=== PATIENT | male | born 1955 | race Caucasian/White ===

== ENCOUNTER 2016-07-10 13:55 | Inpatient (IN) | payer OTHER ==
[2016-07-10] MEDS ORDERED: IV FLUID CONTINUATION 150 ML IV ONE (14:00)
[2016-07-10] MEDS ORDERED: SODIUM CHLORIDE 0.9% 1,000 ML IV ONE (14:05)
[2016-07-10] MEDS ORDERED: MIDAZOLAM 2 MG/2 ML VIAL IV ONE (14:10)
[2016-07-10] MEDS ORDERED: FUROSEMIDE 10 MG/ML 4 ML VIAL IV ONE (14:17)
[2016-07-10] MEDS ORDERED: HYDROmorphone 2 MG/ML 1 ML SYRINGE IV ONE (14:21)
[2016-07-10] MEDS ORDERED: BIVALIRUDIN 250 MG in SODIUM CHLORIDE 0.9% 50 ML IV ONE (14:21)
[2016-07-10] MEDS ORDERED: BIVALIRUDIN BOLUS 250 MG/50 ML IV ONE (14:26)
[2016-07-10] MEDS ORDERED: ONDANSETRON 4 MG/2 ML VIAL IVP ONE (14:28)
[2016-07-10] MEDS ORDERED: PRASUGREL 10 MG TAB PO ONE (14:36)
[2016-07-10] MEDS ORDERED: NITROGLYCERIN 1000MCG/10ML SYRINGE INTRACORON ONE (14:39)
[2016-07-10] MEDS ORDERED: niCARdipine Syringe (1,000 mcg/10 mL) INTRACORON ONE (14:41)
[2016-07-10] MEDS ORDERED: NOREPINEPHRINE 4 MG in SODIUM CHLORIDE 0.9% 250 ML IV ONE (14:45)
[2016-07-10] MEDS ORDERED: RX INFO: IV CONTRAST WAS GIVEN 1 EACH MISC MISCELLANE PRN (15:00)
[2016-07-10] MEDS ORDERED: IOHEXOL 350 MG/ML 100 ML BOTTLE INJ ONE (15:00)
[2016-07-10] MEDS ORDERED: SODIUM CHLORIDE 0.9% 1,000 ML IV SCH (15:00)
[2016-07-10] MEDS ORDERED: ZOLPIDEM 5 MG TAB PO PRN (15:00)
[2016-07-10] MEDS ORDERED: ATROPINE SULFATE 0.1 MG/ML 10ML SYRINGE IV PRN (15:00)
--- NOTE | 2016-07-10 15:05 | P.CRDCN ---
History of Present Illness Consult date: 07/10/16 Chief complaint: Chest pain History of present illness: This is a pleasant 60-year-old gentleman with no significant past medical history was brought to the hospital by ambulance with a chest discomfort. He was in his usual state of health until earlier today when he started experiencing chest discomfort, across the chest, as a pressure kind of discomfort with radiation to the left arm. Discomfort was around 10 over 10 in intensity's. He was diagnosed with acute anterior ST elevation myocardial infarction. He underwent an emergent heart catheterization and was found to have critical disease involving the proximal left anterior descending artery with severe disease involving the mid right coronary artery. The patient underwent successful stenting of the proximal LAD with a good angiographic results and using a drug-eluting stent. Medications and Allergies Allergies Allergy/AdvReac Type Severity Reaction Status Date / Time No Known Allergies Allergy Verified 07/10/16 14:15 Physical Exam Vitals: Intake and Output 07/10/16 07/10/16 07/10/16 06:59 14:59 22:59 Other: Weight 93.894 kg Patient Weight 07/11/16 06:59 Weight 93.894 kg - Constitutional General appearance: no acute distress - Respiratory Respiratory: bilateral: CTA - Cardiovascular Rhythm: regular Heart sounds: normal: S1, S2 Results Current Medications Generic Name Dose Route Start Last Admin Trade Name Freq PRN Reason Stop Dose Admin Al Hydroxide/Mg Hydroxide 30 ml 07/10/16 15:00 Maalox PO Q4HR PRN Heartburn Aspirin 325 mg 07/11/16 09:00 Aspirin PO DAILY [facility] Atorvastatin Calcium 80 mg 07/10/16 21:00 Lipitor PO HS [facility] Atropine Sulfate 0.5 mg 07/10/16 15:00 Atropine IV ONCE PRN Symptomatic Bradycardia Sodium Chloride 1,000 mls @ 100 mls/hr 07/10/16 15:00 Saline 0.9% IV 07/10/16 21:01 .Q10H [facility] Lisinopril 10 mg 07/11/16 09:00 Zestril PO DAILY [facility] Metoprolol Tartrate 25 mg 07/10/16 21:00 Lopressor PO BID [facility] Miscellaneous Information 1 each 07/10/16 15:00 Rx Info: Iv Contrast Was Given MISCELLANE 07/12/16 15:00 DAILY PRN Per Protocol Nitroglycerin 0.4 mg 07/10/16 15:00 Nitrostat SUBLINGUAL Q5M PRN Chest Pain Prasugrel 10 mg 07/11/16 15:01 Effient PO DAILY [facility] Zolpidem Tartrate 5 mg 07/10/16 15:00 Ambien PO HS PRN Insomnia Intake and Output 07/10/16 07/10/16 07/10/16 06:59 14:59 22:59 Other: Weight 93.894 kg Patient Weight 07/11/16 06:59 Weight 93.894 kg Assessment and Plan Plan: Assessment #1 acute anterior STEMI and status post PCI of the LAD #2 severe disease involving the RCA Plan #1 dual antiplatelet therapy along with statin #2 2-D echocardiogram was Doppler #3 staged angioplasty of the right coronary artery
[2016-07-10 15:08] LABS: Basophils % (A) 0 %; CH 29.4; CHCM 35.3; Eosinophils % (A) 0 %; HDW 2.79; HGB 14.1 gm/dL (13.0-17.5); Luc # (Auto) 0.14; Luc % (Auto) 1; Lymphocytes # (A) 1.2 k/uL (1.0-4.8); Lymphocytes % (A) 5 %; MCH 28.8 pg (25.0-35.0); MCHC 34.4 g/dL (31.0-37.0); MCV 83.8 fL (80.0-100.0); Mean Platelet Volume 9.4; Monocytes # (A) 0.7 k/uL (0-1.0); Monocytes % (A) 3 %; Neutrophils % (A) 91 %; RBC 4.89 m/uL (4.30-5.90); RDW 12.8 % (11.5-15.5); WBC (Perox) 22.11
--- NOTE | 2016-07-10 15:12 | P.PCN ---
Date of Procedure: 07/10/16 Operative Findings: CARDIAC CATHETERIZATION AND PERCUTANEOUS CORONARY INTERVENTION PERFORMING PHYSICIAN: Pradeep Bustamante MD,RPVI PREPROCEDURE DIAGNOSES: Acute anterior ST elevation myocardial infarction POSTPROCEDURE DIAGNOSES: Critical disease involving the proximal LAD Severe disease involving the mid RCA PROCEDURE PERFORMED: 1. Selective right and left coronary angiogram 2. Left heart catheterization 3. Successful stenting of the proximal LAD using 3.25 x 33 mm Xience MARIE with a good angiographic results. APPROACH: Right femoral artery PROCEDURE DESCRIPTION: After obtaining an informed consent and explaining the procedure benefits, risks , and complications, the patient was brought to cardiac supervisor laboratory. Local anesthesia was performed using lidocaine subcutaneously. The right femoral artery was cannulated using puncture technique, the guidewire passed easily, and a 6-[place] Islander sheath dilator assembly was advanced over the wire then the wire and dilator were removed and sheath was flushed. I did Selective right and left coronary angiogram using a 6-[place] Island[place] JR4 and JL4 catheters. Following that we did left heart catheterization using 6-[place] Islander pigtail catheter. Following that I did intervene on the LAD please see a separate paragraph. The procedure was completed there was no complication. SELECTIVE CORONARY ANGIOGRAM: The right coronary artery: Is a large caliber vessel and its a dominant vessel. The proximal RCA appeared to be angiographically normal. The mid RCA has a long tubular lesion seems to be in the range of 70%. The RCA has a lesion seems to be in the range of 50-60% . The RCA distally bifurcates into PDA and PLV branches and both have mild diffuse disease. Left main: Is angiographically normal. The left circumflex: Is a large caliber vessel and its and on dominant vessel. The proximal left circumflex appeared to have mild disease only. The mid left circumflex appeared to have mild disease only and gives rises into the first and second obtuse marginal branches and both are angiographically normal then the left circumflex continues as a small-caliber vessel in the AV groove The left anterior descending artery: The proximal left anterior descending artery appeared to have a critical lesion in the range of 90-95% this is by the bifurcation of the first diagonal branch which appears to have mild disease. The mid LAD and distal LAD appears to be angiographically normal. PCI OF THE LAD: Anticoagulation was initiated using Angiomax. Subsequently I took JL4 guide and the left main was engaged. A whisper wire was used to wire the LAD. I did predilatation using 2.5 x 12 mm balloon and then I deployed 3.25 x 33 mm Xience MARIE where the stent was positioned under fluoroscopy guidance and it was deployed under 12 porfirio for 20 seconds. Subsequently I did postdilated using 3.5 mm NC balloon were the balloon was inflated under 20 porfirio for 30 seconds. The following angiogram showed good angiographic results without complication was YEYO-3 flow in the LAD. HEMODYNAMICS: The left ventricular end-diastolic pressure was 36 mmHg and no gradient was identified across aortic valve. POSTPROCEDURE MANAGEMENT: Dual antiplatelet therapy Risk factors modification Aggressive cholesterol control Echocardiogram was Doppler Follow-up with the patient
[2016-07-10 15:17] LABS: ALT 68 U/L (21-72); AST 294 U/L (17-59); Alkaline Phosphatase 85 U/L (38-126); Anion Gap 11 mmol/L; Blood Urea Nitrogen 13 mg/dL (9-20); Carbon Dioxide 22 mmol/L (22-30); Chloride 103 mmol/L (98-107); Cholesterol 224 mg/dL (<200); Glucose 190 mg/dL (74-99); HDL Cholesterol 55 mg/dL (40-60); Non-African American GFR(MDRD) >60 (>60 ml/min/1.73 sqM); Potassium 3.4 mmol/L (3.5-5.1); Sodium 136 mmol/L (137-145); Total Bilirubin 0.7 mg/dL (0.2-1.3); Total Protein 6.5 g/dL (6.3-8.2); Triglycerides 113 mg/dL (<150)
[2016-07-10 15:22] LABS: INR 4.3 (<1.1); Partial Thromboplastin Time 80.3 sec (22.0-30.0); Prothrombin Time 42.9 sec (9.0-12.0)
[2016-07-10 15:39] LABS: Glucose,Whole Blood 177 mg/dL (75-99)
[2016-07-10] MEDS ORDERED: Potassium Replacement Protocol 1 EACH MISC MISCELLANE PRN (16:25)
[2016-07-10] MEDS ORDERED: NALOXONE 0.4 MG/ML 1 ML VIAL IV PRN (16:30)
[2016-07-10] MEDS: POTASSIUM CHLORIDE 10 MEQ, LIDOCAINE 2% INJ 10 MG in SODIUM CHLORIDE 0.9% 100 ML IV SCH ×2 (16:36→17:52)
[2016-07-10] MEDS: MAGNESIUM SULFATE-D5W PMX 1 GM in DEXTROSE/WATER 1 100ML.BAG IVPB SCH ×2 (18:54→20:07)
[2016-07-10] MEDS: INSULIN LISPRO (humaLOG) 300 UNIT/3 ML VIAL SQ SCH ×2 (18:55→20:16)
[2016-07-10] MEDS: ATORVASTATIN 80 MG TAB PO SCH (20:08)
[2016-07-10 20:24] LABS: Glucose,Whole Blood 187 mg/dL (75-99)
[2016-07-10] MEDS ORDERED: METOPROLOL TARTRATE 25 MG TAB PO SCH (21:00)
[2016-07-10] MEDS: MAG HYDROX/AL HYDROX/SIMETH 30 ML CUP PO PRN (22:16)
[2016-07-10] MEDS: NITROGLYCERIN SL TABS 0.4 MG TAB SUBLINGUAL PRN (23:12)
[2016-07-10] MEDS: METOCLOPRAMIDE 5 MG/ML 2 ML VIAL IVP PRN (23:18)
[2016-07-11] MEDS ORDERED: FUROSEMIDE 10 MG/ML 4 ML VIAL IV STA ×3 (00:15→08:41)
[2016-07-11] MEDS: HYDROmorphone 1 MG/ML 1 ML SYRINGE IVP PRN (00:47)
--- NOTE | 2016-07-11 01:31 | XR ---
EXAM: XR Chest, 1 View. CLINICAL HISTORY: Shortness of breath, increased O2 demand TECHNIQUE: Frontal view of the chest. COMPARISON: No relevant prior studies available. FINDINGS: Lungs: Opacities in the right greater than left upper lungs are concerning for pneumonia. Pleural space: Unremarkable. No pneumothorax. Heart: Borderline sized cardiomediastinal silhouette. Mediastinum: See above. Bones/joints: No acute osseous abnormality. IMPRESSION: Opacities in the right greater than left upper lungs are concerning for pneumonia.
[2016-07-11 05:07] LABS: INR 1.1 (<1.1); Prothrombin Time 11.4 sec (9.0-12.0)
[2016-07-11 05:18] LABS: Basophils # (A) 0.1 k/uL (0-0.2); Basophils % (A) 0 %; CHCM 34.5; Eosinophils % (A) 0 %; HCT 45.7 % (39.0-53.0); HGB 15.7 gm/dL (13.0-17.5); Luc # (Auto) 0.15; Luc % (Auto) 1; Lymphocytes % (A) 4 %; MCHC 34.3 g/dL (31.0-37.0); MCV 84.4 fL (80.0-100.0); Mean Platelet Volume 9.6; Monocytes % (A) 4 %; Neutrophils # (A) 22.8 k/uL (1.3-7.7); Neutrophils % (A) 91 %; RBC 5.41 m/uL (4.30-5.90); RDW 12.9 % (11.5-15.5); WBC (Perox) 25.18
[2016-07-11 05:19] LABS: ALT 163 U/L (21-72); Alkaline Phosphatase 85 U/L (38-126); Anion Gap 9 mmol/L; Blood Urea Nitrogen 16 mg/dL (9-20); Calcium 8.7 mg/dL (8.4-10.2); Carbon Dioxide 28 mmol/L (22-30); Chloride 101 mmol/L (98-107); Glucose 175 mg/dL (74-99); Non-African American GFR(MDRD) >60 (>60 ml/min/1.73 sqM); Phosphorous 3.4 mg/dL (2.5-4.5); Potassium 4.4 mmol/L (3.5-5.1); Sodium 138 mmol/L (137-145); Total Bilirubin 0.9 mg/dL (0.2-1.3); Total Protein 6.8 g/dL (6.3-8.2)
[2016-07-11 05:25] LABS: AST 991 U/L (17-59)
[2016-07-11] MEDS: MAG HYDROX/AL HYDROX/SIMETH 30 ML CUP PO PRN (06:30)
--- NOTE | 2016-07-11 07:20 | XR ---
EXAMINATION TYPE: XR chest 1V DATE OF EXAM: 07/11/2016 6:40 AM CLINICAL HISTORY: Difficulty breathing progress study. TECHNIQUE: Single AP portable upright view of the chest is obtained. COMPARISON: Chest x-ray from earlier today. FINDINGS: Bilateral upper lung airspace opacities remain present. There is no pleural effusion or pn eumothorax seen bilaterally. Cardiac silhouette size is felt within normal limits and stable. There i s old fracture deformity right posterior lateral sixth rib noted. IMPRESSION: Persistent bilateral upper lung or lobe edema and/or infiltrates with slight improved aer ation right upper lobe noted.
[2016-07-11 07:36] LABS: Glucose,Whole Blood 159 mg/dL (75-99)
[2016-07-11] MEDS: INSULIN LISPRO (humaLOG) 300 UNIT/3 ML VIAL SQ SCH ×4 (08:07→22:14)
[2016-07-11] MEDS: METOPROLOL TARTRATE 25 MG TAB PO SCH ×2 (08:08→22:11)
[2016-07-11] MEDS: FUROSEMIDE 10 MG/ML 4 ML VIAL IV SCH ×2 (08:08→22:11)
[2016-07-11] MEDS: LISINOPRIL 10 MG TAB PO SCH (08:08)
[2016-07-11] MEDS: PANTOPRAZOLE 40 MG TABLET PO SCH (08:08)
[2016-07-11] MEDS: ASPIRIN 325 MG TAB PO SCH (08:08)
[2016-07-11 08:53] LABS: Hemoglobin A1C 5.4 % (4.2-6.1)
--- NOTE | 2016-07-11 10:25 | ECHOF ---
Referral Reason: MEASUREMENTS -------- HEIGHT: 180.3 cm WEIGHT: 93.0 kg BP: 122/74 IVSd: 1.1 cm (0.6 - 1.1) LVIDd: 4.8 cm (3.9 - 5.3) LVPWd: 1.4 cm (0.6 - 1.1) IVSs: 1.5 cm LVIDs: 3.9 cm LVPWs: 1.5 cm Ao Diam: 3.3 cm (2.0 - 3.7) AV Cusp: 1.8 cm (1.5 - 2.6) LA Diam: 2.8 cm (2.7 - 3.8) MV EXCURSION: 20.130 mm (> 18.000) MV EF SLOPE: 130 mm/s (70 - 150) EPSS: 1.9 cm MV E Dain: 1.08 m/s MV DecT: 199 ms MV A Dain: 0.66 m/s MV E/A Ratio: 1.63 RAP: 5.00 mmHg RVSP: 10.57 mmHg FINDINGS -------- Sinus rhythm. This was a technically good study. The left ventricle is mildly dilated. Left ventricular wall thickness is normal. Overall left ventricular systolic function is severely impaired with, an EF between 25 - 30 %. Mid Basal inferior lateral segments jean carlos Only. The right ventricle is normal in size and function. The left atrium is normal in size. The right atrium is normal in size. Aortic valve is trileaflet and is mildly thickened. There is trace mitral regurgitation. Trace tricuspid regurgitation present. The right ventricular systolic pressure, as measured by Doppler, is 10.57mmHg. Pulmonic valve appears structurally normal. The pericardium is normal. CONCLUSIONS -------- 1. Sinus rhythm. 2. There is trace mitral regurgitation. 3. Trace tricuspid regurgitation present. 4. The right ventricular systolic pressure, as measured by Doppler, is 10.57mmHg. 5. Pulmonic valve appears structurally normal. 6. The pericardium is normal. 7. This was a technically good study. 8. Left ventricular wall thickness is normal. 9. Overall left ventricular systolic function is severely impaired with, an EF between 25 - 30 %. 10. Mid Basal inferior lateral segments jean carlos Only. 11. The right ventricle is normal in size and function. 12. The left atrium is normal in size. 13. The right atrium is normal in size. 14. Aortic valve is trileaflet and is mildly thickened. DEPARTMENT OPERATIONS MANAGER: Elizabeth Webster RDCS
[2016-07-11 11:59] LABS: Glucose,Whole Blood 143 mg/dL (75-99)
[2016-07-11] MEDS: NITROGLYCERIN SL TABS 0.4 MG TAB SUBLINGUAL PRN (12:19)
[2016-07-11] MEDS: SUCRALFATE 1 GM TAB PO SCH ×2 (13:19→13:20)
[2016-07-11] MEDS: PRASUGREL 10 MG TAB PO SCH (15:04)
--- NOTE | 2016-07-11 15:20 | P.CNPUL ---
History of Present Illness Consult date: 07/11/16 Requesting physician: Pradeep Bustamante Reason for consult: other (Acute congestive heart failure) Chief complaint: Chest pain and shortness of breath History of present illness: This is a 60-year-old white male with no significant past medical history, patient was brought into the ER with acute onset of chest discomfort. Described the pain as across the chest as pressure and discomfort. Patient also had radiation of the pain to the left arm, and upon presentation he was found to have acute anterior ST elevation myocardial infarction. Patient underwent emergent cardiac catheterization and he was found to have critical disease involving the proximal LAD severe disease involving the RCA. Patient underwent successful stenting of the proximal LAD with good angiographic results using a drug eluting stent. Post cardiac cath, patient was sent to the ICU, and a chest x-ray clearly showed evidence of pulmonary edema. However the patient is now on Lasix at 40 mg IV push every 12 hours, I went ahead and recommended an extra dose of Lasix this morning. Patient describes dry hacking cough, difficulty laying flat, shortness of breath with any activity. No fever no chills no hemoptysis presently he is pain-free. No headaches no blurred vision no dizziness no nausea no vomiting no abdominal pain no melena no hematemesis no dysuria and no frequency no urgency. Review of Systems 14 point review of systems were obtained, please refer to pertinent positives and negatives as per HPI. Past Medical History Past Medical History: Chest Pain / Angina, GERD/Reflux History of Any Multi-Drug Resistant Organisms: None Reported Past Surgical History: Heart Catheterization With Stent Past Anesthesia/Blood Transfusion Reactions: No Reported Reaction Date of Last Stent Placement:: 07/10/2016 Past Psychological History: Anxiety Smoking Status: Never smoker Past Alcohol Use History: Occasional Past Drug Use History: None Reported - Past Family History Mother Family Medical History: Dementia Medications and Allergies Home Medications Medication Instructions Recorded Confirmed Type Rhodiola Rosea Supplement 1 cap PO QAM 07/10/16 07/10/16 History Allergies Allergy/AdvReac Type Severity Reaction Status Date / Time No Known Allergies Allergy Verified 07/10/16 17:20 Physical Exam Vitals: Vital Signs Temp Pulse Resp BP Pulse Ox 07/11/16 14:30 68 20 93/56 96 07/11/16 14:00 67 25 H 83/54 98 07/11/16 13:00 61 22 100/60 99 07/11/16 12:00 98.1 F 65 17 110/66 97 07/11/16 11:30 68 19 103/68 97 07/11/16 11:00 67 13 93/57 95 07/11/16 10:00 68 24 125/83 94 L 07/11/16 09:00 68 16 131/71 94 L 07/11/16 08:00 98.3 F 71 18 122/74 96 07/11/16 07:30 98.3 F 71 25 H 131/84 94 L 07/11/16 06:00 66 2 L 104/71 94 L 07/11/16 05:30 78 12 118/73 94 L 07/11/16 05:00 75 22 120/74 97 07/11/16 04:30 75 29 H 118/83 92 L 07/11/16 04:00 99.2 F 76 27 H 99/64 93 L 07/11/16 03:30 72 6 L 114/82 93 L 07/11/16 03:00 73 29 H 130/90 93 L 07/11/16 02:30 75 17 131/84 94 L 07/11/16 02:00 77 27 H 114/83 91 L 07/11/16 01:30 75 7 L 118/70 89 L 07/11/16 01:00 78 20 109/69 90 L 07/11/16 00:30 79 12 128/81 94 L 07/11/16 00:00 99.1 F 80 29 H 118/81 88 L 07/10/16 23:30 90 22 106/62 87 L 07/10/16 23:19 77 25 H 106/62 92 L 07/10/16 23:00 98.9 F 84 17 135/84 90 L 07/10/16 22:30 100.1 F H 83 15 136/91 94 L 07/10/16 22:00 88 48 H 129/68 90 L 07/10/16 21:30 82 14 123/67 92 L 07/10/16 21:00 76 4 L 158/95 93 L 07/10/16 20:30 78 24 145/78 94 L 07/10/16 20:00 77 32 H 133/83 95 07/10/16 19:30 73 26 H 126/83 95 07/10/16 19:00 76 18 140/75 95 07/10/16 18:40 77 10 L 120/77 92 L 07/10/16 18:30 82 8 L 120/77 95 07/10/16 18:20 77 9 L 120/77 95 07/10/16 18:10 78 6 L 113/64 97 07/10/16 18:00 75 7 L 113/64 96 07/10/16 17:50 78 12 113/64 95 07/10/16 17:40 75 21 122/80 96 07/10/16 17:30 72 3 L 122/80 95 07/10/16 17:20 77 5 L 122/80 95 07/10/16 17:10 76 7 L 116/82 96 07/10/16 17:00 73 2 L 116/82 94 L 07/10/16 16:50 76 2 L 116/82 92 L 07/10/16 16:40 75 28 H 121/76 88 L 07/10/16 16:30 69 6 L 121/76 92 L 07/10/16 16:20 70 11 L 121/76 90 L 07/10/16 16:10 75 12 128/79 98 07/10/16 16:00 71 15 128/79 97 07/10/16 15:51 93 L 07/10/16 15:50 69 12 128/79 95 07/10/16 15:40 98.8 F 73 17 128/79 84 L 07/10/16 15:30 87 24 Intake and Output 07/11/16 07/11/16 07/11/16 06:59 14:59 22:59 Intake Total 800 Output Total 775 975 0 Balance 25 -975 0 Intake: Intake, IV Titration 800 Amount Sodium Chloride 0.9% 1, 800 000 ml @ 100 mls/hr IV . Q10H [facility] Rx#:[id number] Output: Urine 775 975 0 Other: Voiding Method Urinal Urinal Weight 93.3 kg Physical Exam: Revealed a 60-year-old white male in mild respiratory distress HEENT:[Neck is supple.] [No neck masses.] [No thyromegaly.] [No JVD.] Chest: [Crackles and rhonchi noted bilaterally] Cardiac Exam: [Normal S1 and S2, no S3 gallop, no murmur.] Abdomen: [Soft, nontender, no megaly, no rebound, no guarding, normal bowel sounds.] Extremities: [No clubbing, no edema, no cyanosis.] Neurological Exam: [No focal neurologic deficit.] Results - Laboratory Findings CBC and BMP: 07/11/16 04:43 07/11/16 04:43 PT/INR, D-dimer PT 11.4 sec (9.0-12.0) 07/11/16 04:43 INR 1.1 (<1.1) 07/11/16 04:43 D-Dimer 0.81 mg/L FEU (<0.60) H 07/11/16 00:38 Abnormal lab findings: Abnormal Labs 07/10/16 07/10/16 07/10/16 14:55 14:55 14:55 WBC 22.0 H Neutrophils # 20.0 H PT 42.9 H APTT 80.3 H D-Dimer Sodium 136 L Potassium 3.4 L Glucose 190 H POC Glucose (mg/dL) Calcium 8.0 L Magnesium AST 294 H ALT Troponin I Albumin 3.4 L Cholesterol 224 H LDL Cholesterol, Calc 146 H 07/10/16 07/10/16 07/10/16 14:55 14:55 15:38 WBC Neutrophils # PT APTT D-Dimer Sodium Potassium Glucose POC Glucose (mg/dL) 177 H Calcium Magnesium 1.5 L AST ALT Troponin I 21.600 H* Albumin Cholesterol LDL Cholesterol, Calc 07/10/16 07/11/16 07/11/16 20:15 00:38 04:43 WBC 25.0 H* Neutrophils # 22.8 H PT APTT D-Dimer 0.81 H Sodium Potassium Glucose POC Glucose (mg/dL) 187 H Calcium Magnesium AST ALT Troponin I Albumin Cholesterol LDL Cholesterol, Calc 07/11/16 07/11/16 07/11/16 04:43 07:33 11:56 WBC Neutrophils # PT APTT D-Dimer Sodium Potassium Glucose 175 H POC Glucose (mg/dL) 159 H 143 H Calcium Magnesium AST 991 H ALT 163 H Troponin I Albumin Cholesterol LDL Cholesterol, Calc - Diagnostic Findings Chest x-ray: image reviewed (Evidence of pulmonary edema) Assessment and Plan Plan: Impression: [address] elevation myocardial infarction, status post PCI of the LAD 2 severe disease of the RCA 3 acute pulmonary edema, acute congestive heart failure. Secondary to ischemic cardiomyopathy. 4 remote smoking history Recommendation: Agree with the present treatment plan including dual antiplatelet therapy along with statin, diuretics, and beta blockers. We'll continue to follow in the intensive care unit.. Time with Patient: Greater than 30
[2016-07-11] MEDS ORDERED: MAG HYDROX/AL HYDROX/SIMETH 30 ML CUP PO PRN (15:52)
--- NOTE | 2016-07-11 16:58 | P.HPIM ---
History of Present Illness H&P Date: 07/11/16 Chief Complaint: Chest pain this is a 60-year-old male who plans to establish himself with Dr. Welsh's primary care physician. He has a past medical history of gastroesophageal reflux disease. Patient states that he went for a hike on Monday morning which was shorter than his normal 3-5 miles and he decided to go for a longer hike later in the day. While he was out he developed chest pressure with left arm involvement and feeling woozy. He sat down he took an aspirin and anti-gas medication and his symptoms went away. On Monday the patient had the same symptoms again but much worse. He does have history of stress test about 5 years ago that was normal. He presented by EMS to the hospital and went directly to the [facility] and found to have critical disease involving the proximal LAD and severe disease involving the mid RCA and is status post stenting of the proximal LAD. Patient has been diagnosed with acute anterior ST elevated myocardial infarction. He remains in intensive care unit. He is complaining of pain in the right sternal border with deep inspiration and tender to touch. He also has tenderness to the epigastric area. Echocardiogram reveals EF 25-30% with trace mitral regurgitation, trace tricuspid regurgitation. AST 991 and ALT 163. ProBNP 1220. Triglycerides 113 , cholesterol 224, LDL 146 and HDL 55. WBC count at 25. Review of Systems All systems: negative Constitutional: Reports sweats, Reports weakness, Denies chills, Denies fever Eyes: denies blurred vision, denies pain Ears, nose, mouth and throat: Denies headache, Denies sore throat Cardiovascular: Reports chest pain, Reports lightheadedness, Denies shortness of breath Respiratory: Denies cough Gastrointestinal: Denies abdominal pain, Denies diarrhea, Denies nausea, Denies vomiting Musculoskeletal: Denies myalgias Integumentary: Denies pruritus, Denies rash Neurological: Denies numbness, Denies weakness Psychiatric: Denies anxiety, Denies depression Endocrine: Denies fatigue, Denies weight change Past Medical History Past Medical History: GERD/Reflux, Myocardial Infarction (MS) History of Any Multi-Drug Resistant Organisms: None Reported Past Surgical History: Heart Catheterization With Stent Additional Past Surgical History / Comment(s): dental procedures Past Anesthesia/Blood Transfusion Reactions: No Reported Reaction Date of Last Stent Placement:: 07/10/2016 Past Psychological History: Anxiety Smoking Status: Never smoker Past Alcohol Use History: Occasional Additional Past Alcohol Use History / Comment(s): patient denies any tobacco use history. 40 years ago he did use marijuana, cocaine and other illicit drugs but has not done so in many years. He is . He does not have home O2, CPAP, nebulizer. Past Drug Use History: None Reported - Past Family History Mother Family Medical History: Dementia Additional Family Medical History / Comment(s): Mother is age 82 with history of hypertension, CVA, heart failure, squamous cell cancer. Father Additional Family Medical History / Comment(s): Father is age 83 with no major medical problems. Brother(s) Additional Family Medical History / Comment(s): He has 1 brother that has had CABG in his 40s, hypertension. Sister(s) Additional Family Medical History / Comment(s): He has 1 sister with no major medical problems. Patient does not have any children. Medications and Allergies Home Medications Medication Instructions Recorded Confirmed Type Rhodiola Rosea Supplement 1 cap PO QAM 07/10/16 07/10/16 History Allergies Allergy/AdvReac Type Severity Reaction Status Date / Time No Known Allergies Allergy Verified 07/10/16 17:20 Physical Exam Vitals: Vital Signs Temp Pulse Resp BP Pulse Ox 07/11/16 12:00 98.1 F 65 17 110/66 97 07/11/16 11:30 68 19 103/68 97 07/11/16 11:00 67 13 93/57 95 07/11/16 10:00 68 24 125/83 94 L 07/11/16 09:00 68 16 131/71 94 L 07/11/16 08:00 98.3 F 71 18 122/74 96 07/11/16 07:30 98.3 F 71 25 H 131/84 94 L 07/11/16 06:00 66 2 L 104/71 94 L 07/11/16 05:30 78 12 118/73 94 L 07/11/16 05:00 75 22 120/74 97 07/11/16 04:30 75 29 H 118/83 92 L 07/11/16 04:00 99.2 F 76 27 H 99/64 93 L 07/11/16 03:30 72 6 L 114/82 93 L 07/11/16 03:00 73 29 H 130/90 93 L 07/11/16 02:30 75 17 131/84 94 L 07/11/16 02:00 77 27 H 114/83 91 L 07/11/16 01:30 75 7 L 118/70 89 L 07/11/16 01:00 78 20 109/69 90 L 07/11/16 00:30 79 12 128/81 94 L 07/11/16 00:00 99.1 F 80 29 H 118/81 88 L 07/10/16 23:30 90 22 106/62 87 L 07/10/16 23:19 77 25 H 106/62 92 L 07/10/16 23:00 98.9 F 84 17 135/84 90 L 07/10/16 22:30 100.1 F H 83 15 136/91 94 L 07/10/16 22:00 88 48 H 129/68 90 L 07/10/16 21:30 82 14 123/67 92 L 07/10/16 21:00 76 4 L 158/95 93 L 07/10/16 20:30 78 24 145/78 94 L 07/10/16 20:00 77 32 H 133/83 95 07/10/16 19:30 73 26 H 126/83 95 07/10/16 19:00 76 18 140/75 95 17 18:40 77 10 L 120/77 92 L 07/10/16 18:30 82 8 L 120/77 95 17 18:20 77 9 L 120/77 95 17 18:10 78 6 L 113/64 97 07/10/16 18:00 75 7 L 113/64 96 17 17:50 78 12 113/64 95 17 17:40 75 21 122/80 96 17 17:30 72 3 L 122/80 95 07/10/16 17:20 77 5 L 122/80 95 17 17:10 76 7 L 116/82 96 17 17:00 73 2 L 116/82 94 L 17 16:50 76 2 L 116/82 92 L 17 16:40 75 28 H 121/76 88 L 07/10/16 16:30 69 6 L 121/76 92 L 07/10/16 16:20 70 11 L 121/76 90 L 07/10/16 16:10 75 12 128/79 98 07/10/16 16:00 71 15 128/79 97 07/10/16 15:51 93 L 07/10/16 15:50 69 12 128/79 95 07/10/16 15:40 98.8 F 73 17 128/79 84 L 07/10/16 15:30 87 24 Intake and Output 07/10/16 07/11/16 07/11/16 22:59 06:59 14:59 Intake Total 700 800 Output Total 2175 775 825 Balance -1475 25 -825 Intake: Intake, IV Titration 700 800 Amount Magnesium Sulfate-D5w Pmx 200 1 gm In Dextrose/Water 1 100ml.bag @ 100 mls/hr IVPB Q1H [facility] Rx#: [id number] Potassium Chloride 10 meq 200 Lidocaine 2% Inj 10 mg In Sodium Chloride 0.9% 100 ml @ 100 mls/hr IV Q1HR [facility] Rx#:[id number] Sodium Chloride 0.9% 1, 300 800 000 ml @ 100 mls/hr IV . Q10H [facility] Rx#:[id number] Output: Urine 2175 775 825 Other: Voiding Method Urinal Urinal Urinal Weight 93.894 kg 93.3 kg Gen: This is a 60-year-old male. He is sitting in the ICU bed and appears to be in no acute distress. Patient does appear to be anxious. HEENT: Head is atraumatic, normocephalic. Pupils equal, round. Sclerae is anicteric. NECK: Supple. No JVD. No lymphadenopathy. No thyromegaly. LUNGS: bilateral rhonchi. No intercostal retractions. HEART: Regular rate and rhythm. No murmur. ABDOMEN: Soft. Bowel sounds are present. No masses. No tenderness. EXTREMITIES: No pedal edema. No calf tenderness. NEUROLOGICAL: Patient is awake, alert and oriented x3. Cranial nerves 2 through 12 are grossly intact. Results CBC & Chem 7: 07/12/16 04:02 07/12/16 04:02 Labs: Abnormal Lab Results - Last 24 Hours (Table) 07/10/16 07/10/16 07/10/16 Range/Units 14:55 14:55 14:55 WBC 22.0 H (3.8-10.6) k/uL Neutrophils # 20.0 H (1.3-7.7) k/uL PT 42.9 H (9.0-12.0) sec APTT 80.3 H (22.0-30.0) sec D-Dimer (<0.60) mg/L FEU Sodium 136 L (137-145) mmol/L Potassium 3.4 L (3.5-5.1) mmol/L Glucose 190 H (74-99) mg/dL POC Glucose (mg/dL) (75-99) mg/dL Calcium 8.0 L (8.4-10.2) mg/dL Magnesium (1.6-2.3) mg/dL AST 294 H (17-59) U/L ALT (21-72) U/L Troponin I (0.000-0.034) ng/mL Albumin 3.4 L (3.5-5.0) g/dL Cholesterol 224 H (<200) mg/dL LDL Cholesterol, Calc 146 H (0-99) mg/dL 07/10/16 07/10/16 07/10/16 Range/Units 14:55 14:55 15:38 WBC (3.8-10.6) k/uL Neutrophils # (1.3-7.7) k/uL PT (9.0-12.0) sec APTT (22.0-30.0) sec D-Dimer (<0.60) mg/L FEU Sodium (137-145) mmol/L Potassium (3.5-5.1) mmol/L Glucose (74-99) mg/dL POC Glucose (mg/dL) 177 H (75-99) mg/dL Calcium (8.4-10.2) mg/dL Magnesium 1.5 L (1.6-2.3) mg/dL AST (17-59) U/L ALT (21-72) U/L Troponin I 21.600 H* (0.000-0.034) ng/mL Albumin (3.5-5.0) g/dL Cholesterol (<200) mg/dL LDL Cholesterol, Calc (0-99) mg/dL 07/10/16 07/11/16 07/11/16 Range/Units 20:15 00:38 04:43 WBC 25.0 H* (3.8-10.6) k/uL Neutrophils # 22.8 H (1.3-7.7) k/uL PT (9.0-12.0) sec APTT (22.0-30.0) sec D-Dimer 0.81 H (<0.60) mg/L FEU Sodium (137-145) mmol/L Potassium (3.5-5.1) mmol/L Glucose (74-99) mg/dL POC Glucose (mg/dL) 187 H (75-99) mg/dL Calcium (8.4-10.2) mg/dL Magnesium (1.6-2.3) mg/dL AST (17-59) U/L ALT (21-72) U/L Troponin I (0.000-0.034) ng/mL Albumin (3.5-5.0) g/dL Cholesterol (<200) mg/dL LDL Cholesterol, Calc (0-99) mg/dL 07/11/16 07/11/16 07/11/16 Range/Units 04:43 07:33 11:56 WBC (3.8-10.6) k/uL Neutrophils # (1.3-7.7) k/uL PT (9.0-12.0) sec APTT (22.0-30.0) sec D-Dimer (<0.60) mg/L FEU Sodium (137-145) mmol/L Potassium (3.5-5.1) mmol/L Glucose 175 H (74-99) mg/dL POC Glucose (mg/dL) 159 H 143 H (75-99) mg/dL Calcium (8.4-10.2) mg/dL Magnesium (1.6-2.3) mg/dL AST 991 H (17-59) U/L ALT 163 H (21-72) U/L Troponin I (0.000-0.034) ng/mL Albumin (3.5-5.0) g/dL Cholesterol (<200) mg/dL LDL Cholesterol, Calc (0-99) mg/dL Thrombosis Risk Factor Assmnt - DVT/VTE Prophylaxis DVT/VTE Prophylaxis: Pharmacologic Prophylaxis ordered - Choose All That Apply Each Factor Represents 1 point: Acute MS, Age 41-60 years Thrombosis Risk Factor Assessment Total Risk Factor Score: 2 Thrombosis Risk Factor Assessment Level: Low Risk Assessment and Plan Plan: 1.Acute anterior ST elevation myocardial infarction status post left heart catheterization and successful stenting of the proximal LAD using 3.25 x 33 mm Xience MARIE with a good angiographic results. Continue aspirin, lipitor, lopressor, lisinopril, Effient nitroglycerine prn. 2. GERD and gastritis. Protonix, carafate and maalox. 3. Elevated blood sugar without history of diabetes. Humalog scale as needed. 4. Hyperlipidemia. Lipitor. 5. Acute pulomonary edema and acute systolic heart failure with ischemic cardiomyopathy. Lasix IV. 6. Elevated liver function tests due to hypoperfusion. Monitor CMP. Patient will be admitted to the hospital for a minimum of 2 night stay. Discharge plan: return home Impression and plan of care have been directed as dictated by the signing physician. Latasha Lozada nurse practitioner acting as scribe for signing physician. Time with Patient: Greater than 30
[2016-07-11 17:29] LABS: Glucose,Whole Blood 134 mg/dL (75-99)
[2016-07-11] MEDS ORDERED: DEXTROSE 5% IN WATER 100 ML with AMIODARONE 150 MG IV ONE (19:45)
[2016-07-11] MEDS: AMIODARONE 450 MG in DEXTROSE 5% IN WATER 250 ML IV SCH ×2 (20:50)
[2016-07-11] MEDS: ATORVASTATIN 80 MG TAB PO SCH (22:11)
[2016-07-11 22:15] LABS: Glucose,Whole Blood 146 mg/dL (75-99)
[2016-07-12 05:10] LABS: Basophils % (A) 0 %; CH 28.9; CHCM 34.6; Eosinophils % (A) 0 %; HCT 40.6 % (39.0-53.0); HDW 2.63; HGB 13.8 gm/dL (13.0-17.5); Luc # (Auto) 0.16; Luc % (Auto) 1; Lymphocytes # (A) 1.3 k/uL (1.0-4.8); Lymphocytes % (A) 6 %; MCH 28.4 pg (25.0-35.0); MCV 83.8 fL (80.0-100.0); Mean Platelet Volume 9.1; Monocytes # (A) 0.9 k/uL (0-1.0); Monocytes % (A) 4 %; Neutrophils # (A) 19.8 k/uL (1.3-7.7); Neutrophils % (A) 89 %; RBC 4.85 m/uL (4.30-5.90); RDW 12.9 % (11.5-15.5); WBC 22.2 k/uL (3.8-10.6)
[2016-07-12 05:18] LABS: ALT 113 U/L (21-72); AST 358 U/L (17-59); Alkaline Phosphatase 68 U/L (38-126); Anion Gap 7 mmol/L; Blood Urea Nitrogen 24 mg/dL (9-20); Calcium 8.3 mg/dL (8.4-10.2); Carbon Dioxide 30 mmol/L (22-30); Chloride 96 mmol/L (98-107); Glucose 132 mg/dL (74-99); Magnesium 2.1 mg/dL (1.6-2.3); Non-African American GFR(MDRD) >60 (>60 ml/min/1.73 sqM); Phosphorous 3.1 mg/dL (2.5-4.5); Potassium 3.9 mmol/L (3.5-5.1); Sodium 133 mmol/L (137-145); Total Bilirubin 1.4 mg/dL (0.2-1.3); Total Protein 6.2 g/dL (6.3-8.2)
[2016-07-12] MEDS: AMIODARONE 450 MG in DEXTROSE 5% IN WATER 250 ML IV SCH ×4 (06:32→12:16)
[2016-07-12] MEDS ORDERED: POTASSIUM CHLORIDE ER 20 MEQ TAB.ER PO SCH (07:00)
--- NOTE | 2016-07-12 07:13 | XR ---
EXAMINATION TYPE: XR chest 1V portable DATE OF EXAM: 07/12/2016 6:52 AM Comparison: 07/11/2016 Clinical History: 60-year-old male CHF Findings: Heart remains borderline enlarged. Aorta within normal limits. Diffuse interstitial opacities with mo re confluent perihilar airspace opacities. Slight interval improved aeration in the upper lungs. No s ignificant pleural effusion seen on the frontal view. However, some pleural fluid is seen thickening the left major fissure. Old healed right-sided rib fracture deformity. Impression: Stable to minimally improved CHF with pulmonary edema.
--- NOTE | 2016-07-12 07:25 | PN ---
A 60-year-old gentleman that is admitted to hospital with acute myocardial infarction, underwent a cardiac catheterization and angioplasty of proximal LAD. He has a lesion in the right coronary artery, which will be addressed on this admission. This morning he is doing well and is free of symptoms. An echocardiogram showed severe LV systolic dysfunction with an ejection fraction of 25% to 30%. On exam, comfortable at rest. Vital signs are stable. There is no jugular venous distention. Chest exam reveals good air entry bilaterally. Heart exam reveals first and second heart sounds. No gallop. Abdomen is soft. Exam of the extremities did not reveal any edema. Peripheral pulses are felt. Groin is free of bleeding, bruit, hematoma. Foot pulses are intact. EKG shows sinus rhythm with poor R wave progression suggestive of prior anteroseptal myocardial infarction. The initial EKG revealed acute ST segment elevation SD in the precordial deep. Current medications include aspirin, Lasix, Zestril, Lopressor and Effient. ASSESSMENT: 1. Acute anterior wall myocardial infarction, status post catheterization and angioplasty. 2. Ischemic cardiomyopathy. PLAN: The patient is doing well on the appropriate medical therapy. We will transfer him out to selective care.
[2016-07-12 08:05] LABS: Glucose,Whole Blood 180 mg/dL (75-99)
[2016-07-12] MEDS: PANTOPRAZOLE 40 MG TABLET PO SCH (08:33)
[2016-07-12] MEDS: FUROSEMIDE 10 MG/ML 4 ML VIAL IV SCH (08:34)
[2016-07-12] MEDS: INSULIN LISPRO (humaLOG) 300 UNIT/3 ML VIAL SQ SCH ×4 (08:34→20:19)
[2016-07-12] MEDS: PRASUGREL 10 MG TAB PO SCH (08:34)
[2016-07-12] MEDS: ASPIRIN 325 MG TAB PO SCH (08:34)
[2016-07-12] MEDS: AMOXIC-POT CLAV 875-125MG 1 EACH TAB PO SCH ×2 (09:29→20:18)
[2016-07-12] MEDS: METOPROLOL TARTRATE 25 MG TAB PO SCH ×3 (10:22→22:14)
--- NOTE | 2016-07-12 11:30 | P.PN ---
Subjective Principal diagnosis: Acute ST elevation myocardial infarction This is a 60-year-old white male with no significant past medical history, patient was brought into the ER with acute onset of chest discomfort. Described the pain as across the chest as pressure and discomfort. Patient also had radiation of the pain to the left arm, and upon presentation he was found to have acute anterior ST elevation myocardial infarction. Patient underwent emergent cardiac catheterization and he was found to have critical disease involving the proximal LAD severe disease involving the RCA. Patient underwent successful stenting of the proximal LAD with good angiographic results using a drug eluting stent. Post cardiac cath, patient was sent to the ICU, and a chest x-ray clearly showed evidence of pulmonary edema. However the patient is now on Lasix at 40 mg IV push every 12 hours, I went ahead and recommended an extra dose of Lasix this morning. Patient describes dry hacking cough, difficulty laying flat, shortness of breath with any activity. No fever no chills no hemoptysis presently he is pain-free. No headaches no blurred vision no dizziness no nausea no vomiting no abdominal pain no melena no hematemesis no dysuria and no frequency no urgency. Patient was reevaluated today on 07/12/2016, seems to be doing better today compared to yesterday. Less shortness of breath, able to lay flat today, chest x-ray continues to show some congestive heart failure changes, and considering the patient had possible aspiration yesterday, I added Augmentin empirically. And he will be given higher dose of Lasix, 40 mg IV push every 8 hours. Instead of every 12. WBC count today is 22.2 hemoglobin is 13.8 basically with embolic profile is normal renal profile is normal. Objective - Vital Signs Vital signs: Vital Signs Temp 98.6 F 07/12/16 08:00 Pulse 71 07/12/16 11:00 Resp 20 07/12/16 11:00 BP 96/69 07/12/16 11:00 Pulse Ox 92 L 07/12/16 11:00 Intake & Output 07/11/16 07/12/16 07/12/16 18:59 06:59 18:59 Intake Total 359.000 270 Output Total 7022 305 8485 Balance -1150 -121.000 -1255 Weight 91.5 kg Intake: IV 20 0.9 at KVO 20 Intake, IV Titration 359.000 Amount Amiodarone 450 mg In 259.000 Dextrose 5% in Water 250 ml @ 1 MG/MIN 34.53 mls/ hr IV .Q7H31M [facility] Rx#: [id number] Dextrose 5% in Water 100 100 ml @ 618 mls/hr IV .Q10M ONE with Amiodarone 150 mg Rx#:[id number] Oral 250 Output: Urine [id number] Other: Voiding Method Urinal Urinal # Voids 2 - Exam Physical Exam: Revealed a 60-year-old white male in mild respiratory distress HEENT:[Neck is supple.] [No neck masses.] [No thyromegaly.] [No JVD.] Chest: [Crackles and rhonchi noted bilaterally] Cardiac Exam: [Normal S1 and S2, no S3 gallop, no murmur.] Abdomen: [Soft, nontender, no megaly, no rebound, no guarding, normal bowel sounds.] Extremities: [No clubbing, no edema, no cyanosis.] Neurological Exam: [No focal neurologic deficit.] - Labs CBC & Chem 7: 07/12/16 04:02 07/12/16 04:02 Labs: Abnormal Lab Results - Last 24 Hours (Table) 07/11/16 07/11/16 07/11/16 Range/Units 11:56 17: 22:13 WBC (3.8-10.6) k/uL Neutrophils # (1.3-7.7) k/uL Sodium (137-145) mmol/L Chloride (98-107) mmol/L BUN (9-20) mg/dL Glucose (74-99) mg/dL POC Glucose (mg/dL) 143 H 134 H 146 H (75-99) mg/dL Calcium (8.4-10.2) mg/dL Total Bilirubin (0.2-1.3) mg/dL AST (17-59) U/L ALT (21-72) U/L Total Protein (6.3-8.2) g/dL Albumin (3.5-5.0) g/dL 07/12/16 07/12/16 07/12/16 Range/Units 04:02 04:02 08:03 WBC 22.2 H (3.8-10.6) k/uL Neutrophils # 19.8 H (1.3-7.7) k/uL Sodium 133 L (137-145) mmol/L Chloride 96 L (98-107) mmol/L BUN 24 H (9-20) mg/dL Glucose 132 H (74-99) mg/dL POC Glucose (mg/dL) 180 H (75-99) mg/dL Calcium 8.3 L (8.4-10.2) mg/dL Total Bilirubin 1.4 H (0.2-1.3) mg/dL AST 358 H (17-59) U/L ALT 113 H (21-72) U/L Total Protein 6.2 L (6.3-8.2) g/dL Albumin 3.4 L (3.5-5.0) g/dL Assessment and Plan Plan: Impression: [address] elevation myocardial infarction, status post PCI of the LAD 2 severe disease of the RCA 3 acute pulmonary edema, acute congestive heart failure. Secondary to ischemic cardiomyopathy. 4 remote smoking history Recommendation: Agree with the present treatment plan including dual antiplatelet therapy along with statin, diuretics, and beta blockers. Increase the dose of Lasix to 40 mg IV push every 8 hours, consider transferring the patient to a cardiac floor today. Continue to monitor closely. Time with Patient: Less than 30
--- NOTE | 2016-07-12 12:02 | P.PN ---
Subjective This is a 60-year-old male who plans to establish himself with Dr. Welsh's primary care physician. He has a past medical history of gastroesophageal reflux disease. Patient states that he went for a hike on Monday morning which was shorter than his normal 3-5 miles and he decided to go for a longer hike later in the day. While he was out he developed chest pressure with left arm involvement and feeling woozy. He sat down he took an aspirin and anti-gas medication and his symptoms went away. On Monday the patient had the same symptoms again but much worse. He does have history of stress test about 5 years ago that was normal. He presented by EMS to the hospital and went directly to the [employer] [facility] and found to have critical disease involving the proximal LAD and severe disease involving the mid RCA and is status post stenting of the proximal LAD. Patient has been diagnosed with acute anterior ST elevated myocardial infarction. He remains in intensive care unit. He is complaining of pain in the right sternal border with deep inspiration and tender to touch. He also has tenderness to the epigastric area. Echocardiogram reveals EF 25-30% with trace mitral regurgitation, trace tricuspid regurgitation. AST 991 and ALT 163. ProBNP 1220. Triglycerides 113 , cholesterol 224, LDL 146 and HDL 55. WBC count at 25. 3/: Repeat chest x-ray shows stable to minimally improved CHF with pulmonary edema. Dr. Hylton had added Augmentin for possible aspiration. He is currently on Lasix 40 mg IV changed to daily. WBC is 22, AST 358, ALT 113, GFR greater than 60. He has been on high flow oxygen 5 L pulse oxing 94%. Weight is down 2-1 /2 kg. Patient had run of [employer] and started on oral amiodarone. Blood pressure has been on the low side and meds are being adjusted. Transfer to [facility]. Magnesius level added as patient will be started on Mag oxide which patient states helps him sleep. Objective - Vital Signs Vital signs: Vital Signs Temp 98.6 F 07/12/16 08:00 Pulse 71 07/12/16 11:00 Resp 20 07/12/16 11:00 BP 96/69 07/12/16 11:00 Pulse Ox 92 L 07/12/16 11:00 Intake & Output 07/11/16 07/12/16 07/12/16 18:59 06:59 18:59 Intake Total 359.000 270 Output Total 7407 317 0883 Balance -1150 -121.000 -1255 Weight 91.5 kg Intake: IV 20 0.9 at KVO 20 Intake, IV Titration 359.000 Amount Amiodarone 450 mg In 259.000 Dextrose 5% in Water 250 ml @ 1 MG/MIN 34.53 mls/ hr IV .Q7H31M [facility] Rx#: [id number] Dextrose 5% in Water 100 100 ml @ 618 mls/hr IV .Q10M ONE with Amiodarone 150 mg Rx#:[id number] Oral 250 Output: Urine [id number] Other: Voiding Method Urinal Urinal # Voids 2 - Exam Gen: This is a 60-year-old male. He is sitting in the ICU bed and appears to be in no acute distress. Patient does appear to be anxious. HEENT: Head is atraumatic, normocephalic. Pupils equal, round. Sclerae is anicteric. NECK: Supple. No JVD. No lymphadenopathy. No thyromegaly. LUNGS: bilateral rhonchi. No intercostal retractions. HEART: Regular rate and rhythm. No murmur. ABDOMEN: Soft. Bowel sounds are present. No masses. No tenderness. EXTREMITIES: No pedal edema. No calf tenderness. NEUROLOGICAL: Patient is awake, alert and oriented x3. Cranial nerves 2 through 12 are grossly intact. - Labs CBC & Chem 7: 07/12/16 04:02 07/12/16 04:02 Labs: Abnormal Lab Results - Last 24 Hours (Table) 07/11/16 07/11/16 07/11/16 Range/Units 11:56 17:17 22:13 WBC (3.8-10.6) k/uL Neutrophils # (1.3-7.7) k/uL Sodium (137-145) mmol/L Chloride (98-107) mmol/L BUN (9-20) mg/dL Glucose (74-99) mg/dL POC Glucose (mg/dL) 143 H 134 H 146 H (75-99) mg/dL Calcium (8.4-10.2) mg/dL Total Bilirubin (0.2-1.3) mg/dL AST (17-59) U/L ALT (21-72) U/L Total Protein (6.3-8.2) g/dL Albumin (3.5-5.0) g/dL 07/12/16 07/12/16 07/12/16 Range/Units 04:02 04:02 08:03 WBC 22.2 H (3.8-10.6) k/uL Neutrophils # 19.8 H (1.3-7.7) k/uL Sodium 133 L (137-145) mmol/L Chloride 96 L (98-107) mmol/L BUN 24 H (9-20) mg/dL Glucose 132 H (74-99) mg/dL POC Glucose (mg/dL) 180 H (75-99) mg/dL Calcium 8.3 L (8.4-10.2) mg/dL Total Bilirubin 1.4 H (0.2-1.3) mg/dL AST 358 H (17-59) U/L ALT 113 H (21-72) U/L Total Protein 6.2 L (6.3-8.2) g/dL Albumin 3.4 L (3.5-5.0) g/dL Assessment and Plan Plan: 1.Acute anterior ST elevation myocardial infarction status post left heart catheterization and successful stenting of the proximal LAD using 3.25 x 33 mm Xience MARIE with a good angiographic results. Continue aspirin, lipitor, lopressor, lisinopril, Effient nitroglycerine prn. 2. GERD and gastritis. Protonix, carafate and maalox. 3. Elevated blood sugar without history of diabetes. Humalog scale as needed. 4. Hyperlipidemia. Lipitor. 5. Acute pulomonary edema and acute systolic heart failure with ischemic cardiomyopathy. Lasix IV. 6. Elevated liver function tests due to hypoperfusion. Monitor CMP. Discharge plan: return home Impression and plan of care have been directed as dictated by the signing physician. Latasha Lozada nurse practitioner acting as scribe for signing physician. Time with Patient: Greater than 30
[2016-07-12] MEDS: LISINOPRIL 2.5 MG TAB PO SCH ×2 (12:17→14:23)
[2016-07-12] MEDS: AMIODARONE 200 MG TAB PO SCH (12:18)
[2016-07-12 12:29] LABS: Glucose,Whole Blood 127 mg/dL (75-99)
--- NOTE | 2016-07-12 12:42 | PN ---
Terry is a 60-year-old gentleman who was admitted to hospital with anterior wall myocardial infarction with severe LV systolic dysfunction. Has a lesion within the right coronary artery, which will be stented on this admission. There is a question of possible aspiration and had been started on Augmentin. He also has mild pulmonary congestion and had been treated with Lasix. The patient has had low blood pressures and had a run of ventricular tachycardia yesterday that was asymptomatic. Patient was on IV amiodarone overnight and will be switched to p.o. amiodarone tonight. On exam, he is comfortable at rest. Heart rate is 70 beats per minute, Blood pressure is 96/69, respiratory rate is 18. Chest exam reveals good air entry bilaterally. Heart exam reveals first and second heart sounds. No gallop. No murmur. Abdomen is soft, nontender. Exam of extremities did not reveal any edema. Peripheral pulses are palpable. Labs show a hemoglobin of 13.8, platelet count is 185. Potassium is 3.9. Creatinine is 1.1. ASSESSMENT: 1. Acute anterior wall myocardial infarction. 2. Ischemic cardiomyopathy. 3. Acute onset congestive heart failure, secondary to systolic dysfunction. 4. Possible aspiration. 5. Ventricular tachycardia. PLAN: Will continue with the current medical therapy including aspirin, amiodarone, Lipitor, Lasix, Zestril at the lower dose at 2.5 mg daily, prasugrel 10 mg daily.
[2016-07-12 14:24] VITALS: BMI 26.6
[2016-07-12] MEDS ORDERED: FUROSEMIDE 10 MG/ML 4 ML VIAL IV STA (17:09)
[2016-07-12 17:35] LABS: Glucose,Whole Blood 124 mg/dL (75-99)
[2016-07-12] MEDS: MAGNESIUM OXIDE 400 MG TAB PO SCH (20:19)
[2016-07-12] MEDS: ATORVASTATIN 80 MG TAB PO SCH (20:19)
[2016-07-12 20:20] LABS: Glucose,Whole Blood 120 mg/dL (75-99)
[2016-07-12] MEDS: LISINOPRIL 10 MG TAB PO SCH (21:47)
[2016-07-13 05:00] LABS: Basophils # (A) 0.2 k/uL (0-0.2); Basophils % (A) 1 %; CH 29.3; CHCM 34.9; Eosinophils # (A) 0.1 k/uL (0-0.7); Eosinophils % (A) 1 %; HCT 38.5 % (39.0-53.0); HDW 2.66; HGB 13.1 gm/dL (13.0-17.5); Luc # (Auto) 0.24; Luc % (Auto) 2; Lymphocytes # (A) 1.3 k/uL (1.0-4.8); Lymphocytes % (A) 8 %; MCH 28.6 pg (25.0-35.0); MCV 84.1 fL (80.0-100.0); Monocytes # (A) 0.6 k/uL (0-1.0); Monocytes % (A) 4 %; Neutrophils # (A) 12.8 k/uL (1.3-7.7); Neutrophils % (A) 85 %; RBC 4.58 m/uL (4.30-5.90); RDW 12.8 % (11.5-15.5); WBC 15.1 k/uL (3.8-10.6); WBC (Perox) 15.51
[2016-07-13 05:13] LABS: ALT 79 U/L (21-72); AST 153 U/L (17-59); Alkaline Phosphatase 69 U/L (38-126); Anion Gap 9 mmol/L; Blood Urea Nitrogen 26 mg/dL (9-20); Calcium 8.3 mg/dL (8.4-10.2); Carbon Dioxide 31 mmol/L (22-30); Chloride 95 mmol/L (98-107); Glucose 119 mg/dL (74-99); Magnesium 2.2 mg/dL (1.6-2.3); Non-African American GFR(MDRD) >60 (>60 ml/min/1.73 sqM); Phosphorous 3.5 mg/dL (2.5-4.5); Potassium 3.7 mmol/L (3.5-5.1); Sodium 135 mmol/L (137-145); Total Bilirubin 1.7 mg/dL (0.2-1.3); Total Protein 6.4 g/dL (6.3-8.2)
[2016-07-13] MEDS ORDERED: POTASSIUM CHLORIDE ER 20 MEQ TAB.ER PO SCH (06:00)
--- NOTE | 2016-07-13 07:11 | XR ---
EXAMINATION TYPE: XR chest 1V portable DATE OF EXAM: 07/13/2016 6:56 AM COMPARISON: Prior chest x-ray 12 July 2016 HISTORY: Congestive heart failure TECHNIQUE: Single frontal view of the chest is obtained. FINDINGS: Heart remains enlarged. Interstitium and central vascularity somewhat increased. Old right -sided rib fracture is stable. No pneumothorax or sizable effusion. There are overlying cardiac leads . IMPRESSION: Correlate for heart failure. Follow-up recommended
[2016-07-13 07:58] LABS: Glucose,Whole Blood 128 mg/dL (75-99)
[2016-07-13] MEDS: AMIODARONE 200 MG TAB PO SCH ×2 (08:42→20:47)
[2016-07-13] MEDS: AMOXIC-POT CLAV 875-125MG 1 EACH TAB PO SCH ×2 (08:42→20:47)
[2016-07-13] MEDS: PANTOPRAZOLE 40 MG TABLET PO SCH (08:42)
[2016-07-13] MEDS: ASPIRIN 325 MG TAB PO SCH (08:43)
[2016-07-13] MEDS: METOPROLOL TARTRATE 25 MG TAB PO SCH ×2 (08:43→20:48)
[2016-07-13] MEDS: PRASUGREL 10 MG TAB PO SCH (08:43)
[2016-07-13] MEDS: FUROSEMIDE 10 MG/ML 4 ML VIAL IV SCH (08:43)
[2016-07-13] MEDS: INSULIN LISPRO (humaLOG) 300 UNIT/3 ML VIAL SQ SCH ×4 (08:49→20:48)
[2016-07-13] MEDS: METOCLOPRAMIDE 5 MG/ML 2 ML VIAL IVP PRN (09:07)
[2016-07-13] MEDS ORDERED: SODIUM CHLORIDE 0.9% 500 ML IV ONE (09:57)
[2016-07-13] MEDS ORDERED: MIDAZOLAM 2 MG/2 ML VIAL IVP ONE (10:02)
[2016-07-13] MEDS ORDERED: LIDOCAINE 2% INJ 20 MG/ML SQ ONE (10:05)
[2016-07-13] MEDS: VERAPAMIL SYRINGE (5 MG/10 ML) INTRAARTER ONE ×2 (10:06→10:32)
[2016-07-13] MEDS ORDERED: BIVALIRUDIN BOLUS 250 MG/50 ML IV ONE (10:06)
[2016-07-13] MEDS ORDERED: BIVALIRUDIN 250 MG in SODIUM CHLORIDE 0.9% 50 ML IV ONE (10:06)
[2016-07-13] MEDS: NITROGLYCERIN 1000MCG/10ML SYRINGE INTRACORON ONE ×2 (10:09→10:17)
[2016-07-13] MEDS ORDERED: HYDROmorphone 2 MG/ML 1 ML SYRINGE IVP ONE (10:12)
[2016-07-13] MEDS ORDERED: IODIXANOL 320 MG/ML 100 ML INTRAARTER ONE (10:33)
[2016-07-13] MEDS ORDERED: MAG HYDROX/AL HYDROX/SIMETH 30 ML CUP PO PRN (10:44)
[2016-07-13] MEDS ORDERED: RX INFO: IV CONTRAST WAS GIVEN 1 EACH MISC MISCELLANE PRN (10:44)
[2016-07-13] MEDS ORDERED: NITROGLYCERIN SL TABS 0.4 MG TAB SUBLINGUAL PRN (10:44)
[2016-07-13] MEDS ORDERED: ZOLPIDEM 5 MG TAB PO PRN (10:44)
[2016-07-13] MEDS ORDERED: ATROPINE SULFATE 0.1 MG/ML 10ML SYRINGE IV PRN (10:44)
[2016-07-13] MEDS ORDERED: SODIUM CHLORIDE 0.9% 1,000 ML IV SCH (10:45)
--- NOTE | 2016-07-13 11:47 | P.PN ---
Subjective This is a 60-year-old male who plans to establish himself with Dr. Welsh's primary care physician. He has a past medical history of gastroesophageal reflux disease. Patient states that he went for a hike on Monday morning which was shorter than his normal 3-5 miles and he decided to go for a longer hike later in the day. While he was out he developed chest pressure with left arm involvement and feeling woozy. He sat down he took an aspirin and anti-gas medication and his symptoms went away. On Monday the patient had the same symptoms again but much worse. He does have history of stress test about 5 years ago that was normal. He presented by EMS to the hospital and went directly to the Car Repair Supervisor and found to have critical disease involving the proximal LAD and severe disease involving the mid RCA and is status post stenting of the proximal LAD. Patient has been diagnosed with acute anterior ST elevated myocardial infarction. He remains in intensive care unit. He is complaining of pain in the right sternal border with deep inspiration and tender to touch. He also has tenderness to the epigastric area. Echocardiogram reveals EF 25-30% with trace mitral regurgitation, trace tricuspid regurgitation. AST 991 and ALT 163. ProBNP 1220. Triglycerides 113 , cholesterol 224, LDL 146 and HDL 55. WBC count at 25. 07/12: Repeat chest x-ray shows stable to minimally improved CHF with pulmonary edema. Dr. Hylton had added Augmentin for possible aspiration. He is currently on Lasix 40 mg IV changed to daily. WBC is 22, AST 358, ALT 113, GFR greater than 60. He has been on high flow oxygen 5 L pulse oxing 94%. Weight is down 2-1 /2 kg. Patient had run of [employer] and started on oral amiodarone. Blood pressure has been on the low side and meds are being adjusted. Transfer to [facility]. Magnesius level added as patient will be started on Mag oxide which patient states helps him sleep. 07/13: Magnesium level II.2. Total bilirubin 1.7, AST 153 and ALT 79.WBC down to 15.1. Repeat chest x-ray shows correlate for heart failure. Patient returned to concrete plant laborer for 2 more stents which was planned. He is in ICU waiting for [facility] bed. Melatonin added for insomnia. Objective - Vital Signs Vital signs: Vital Signs Temp 98.3 F 07/13/16 08:00 Pulse 70 07/13/16 09:00 Resp 18 07/13/16 09:00 BP 106/70 07/13/16 09:00 Pulse Ox 99 07/13/16 09:00 Intake & Output 07/12/16 07/13/16 07/13/16 18:59 06:59 18:59 Intake Total 295 1037 Output Total 2200 805 0 Balance -1905 232 0 Weight 91.5 kg 89.3 kg Intake: IV 45 0.9 at KVO 45 Oral 250 1037 Output: Urine 2200 805 0 Other: Voiding Method Urinal # Voids 2 1 # Bowel Movements 1 - Exam Gen: This is a 60-year-old male. He is sitting in the ICU bed and appears to be in no acute distress. Patient does appear to be anxious. HEENT: Head is atraumatic, normocephalic. Pupils equal, round. Sclerae is anicteric. NECK: Supple. No JVD. No lymphadenopathy. No thyromegaly. LUNGS: bilateral rhonchi. No intercostal retractions. HEART: Regular rate and rhythm. No murmur. ABDOMEN: Soft. Bowel sounds are present. No masses. No tenderness. EXTREMITIES: No pedal edema. No calf tenderness. NEUROLOGICAL: Patient is awake, alert and oriented x3. Cranial nerves 2 through 12 are grossly intact. - Labs CBC & Chem 7: 07/13/16 04:10 07/13/16 04:10 Labs: Abnormal Lab Results - Last 24 Hours (Table) 07/12/16 07/12/16 07/12/16 Range/Units 12:27 17:34 20:18 WBC (3.8-10.6) k/uL Hct (39.0-53.0) % Neutrophils # (1.3-7.7) k/uL Sodium (137-145) mmol/L Chloride (98-107) mmol/L Carbon Dioxide (22-30) mmol/L BUN (9-20) mg/dL Glucose (74-99) mg/dL POC Glucose (mg/dL) 127 H 124 H 120 H (75-99) mg/dL Calcium (8.4-10.2) mg/dL Total Bilirubin (0.2-1.3) mg/dL AST (17-59) U/L ALT (21-72) U/L 03/22/17 03/22/17 03/22/17 Range/Units 04:10 04:10 07:56 WBC 15.1 H (3.8-10.6) k/uL Hct 38.5 L (39.0-53.0) % Neutrophils # 12.8 H (1.3-7.7) k/uL Sodium 135 L (137-145) mmol/L Chloride 95 L (98-107) mmol/L Carbon Dioxide 31 H (22-30) mmol/L BUN 26 H (9-20) mg/dL Glucose 119 H (74-99) mg/dL POC Glucose (mg/dL) 128 H (75-99) mg/dL Calcium 8.3 L (8.4-10.2) mg/dL Total Bilirubin 1.7 H (0.2-1.3) mg/dL AST 153 H (17-59) U/L ALT 79 H (21-72) U/L Assessment and Plan Plan: 1.Acute anterior ST elevation myocardial infarction status post left heart catheterization and successful stenting of the proximal LAD using 3.25 x 33 mm Xience MARIE with a good angiographic results. Continue aspirin, lipitor, lopressor, lisinopril, Effient nitroglycerine prn. Returned to concrete plant laborer for 2 more stents. 2. GERD and gastritis. Protonix, carafate and maalox. 3. Elevated blood sugar without history of diabetes. Humalog scale as needed. 4. Hyperlipidemia. Lipitor. 5. Acute pulomonary edema and acute systolic heart failure with ischemic cardiomyopathy. Lasix IV. 6. Elevated liver function tests due to hypoperfusion. Monitor CMP. Discharge plan: return home Impression and plan of care have been directed as dictated by the signing physician. Latasha Lozada nurse practitioner acting as scribe for signing physician. Time with Patient: Greater than 30
--- NOTE | 2016-07-13 12:17 | P.PN ---
Subjective Principal diagnosis: Acute ST elevation myocardial infarction This is a 60-year-old white male with no significant past medical history, patient was brought into the ER with acute onset of chest discomfort. Described the pain as across the chest as pressure and discomfort. Patient also had radiation of the pain to the left arm, and upon presentation he was found to have acute anterior ST elevation myocardial infarction. Patient underwent emergent cardiac catheterization and he was found to have critical disease involving the proximal LAD severe disease involving the RCA. Patient underwent successful stenting of the proximal LAD with good angiographic results using a drug eluting stent. Post cardiac cath, patient was sent to the ICU, and a chest x-ray clearly showed evidence of pulmonary edema. However the patient is now on Lasix at 40 mg IV push every 12 hours, I went ahead and recommended an extra dose of Lasix this morning. Patient describes dry hacking cough, difficulty laying flat, shortness of breath with any activity. No fever no chills no hemoptysis presently he is pain-free. No headaches no blurred vision no dizziness no nausea no vomiting no abdominal pain no melena no hematemesis no dysuria and no frequency no urgency. Patient was reevaluated today on 07/12/2016, seems to be doing better today compared to yesterday. Less shortness of breath, able to lay flat today, chest x-ray continues to show some congestive heart failure changes, and considering the patient had possible aspiration yesterday, I added Augmentin empirically. And he will be given higher dose of Lasix, 40 mg IV push every 8 hours. Instead of every 12. WBC count today is 22.2 hemoglobin is 13.8 basically with embolic profile is normal renal profile is normal. Patient was reevaluated today on 07/13/2016, he underwent more stenting today by Dr. Ocampo, final operative report is not available, but according to the patient he had successful stent placement. Chest x-ray from today showed significant improvement in his pulmonary edema, clinically the patient is feeling better, breathing a lot easier. Labs were reviewed, renal profile was also reviewed and creatinine is 1.21 today. Objective - Vital Signs Vital signs: Vital Signs Temp 98.3 F 07/13/16 08:00 Pulse 70 07/13/16 09:00 Resp 18 07/13/16 09:00 BP 106/70 07/13/16 09:00 Pulse Ox 99 07/13/16 09:00 Intake & Output 07/12/16 07/13/16 07/13/16 18:59 06:59 18:59 Intake Total 295 1037 451 Output Total 2200 805 300 Balance -1905 232 151 Weight 91.5 kg 89.3 kg Intake: IV 45 451 0.9 at KVO 45 Oral 250 1037 Output: Urine 2200 805 300 Other: Voiding Method Urinal # Voids 2 1 # Bowel Movements 1 - Exam Physical Exam: Revealed a 60-year-old white male in mild respiratory distress HEENT:[Neck is supple.] [No neck masses.] [No thyromegaly.] [No JVD.] Chest: [Minimal crackles at the bases] Cardiac Exam: [Normal S1 and S2, no S3 gallop, no murmur.] Abdomen: [Soft, nontender, no megaly, no rebound, no guarding, normal bowel sounds.] Extremities: [No clubbing, no edema, no cyanosis.] Neurological Exam: [No focal neurologic deficit.] - Labs CBC & Chem 7: 07/13/16 04:10 07/13/16 04:10 Labs: Abnormal Lab Results - Last 24 Hours (Table) 07/12/16 07/12/16 07/12/16 Range/Units 12:27 17:34 20:18 WBC (3.8-10.6) k/uL Hct (39.0-53.0) % Neutrophils # (1.3-7.7) k/uL Sodium (137-145) mmol/L Chloride (98-107) mmol/L Carbon Dioxide (22-30) mmol/L BUN (9-20) mg/dL Glucose (74-99) mg/dL POC Glucose (mg/dL) 127 H 124 H 120 H (75-99) mg/dL Calcium (8.4-10.2) mg/dL Total Bilirubin (0.2-1.3) mg/dL AST (17-59) U/L ALT (21-72) U/L 07/13/16 07/13/16 07/13/16 Range/Units 04:10 04:10 07:56 WBC 15.1 H (3.8-10.6) k/uL Hct 38.5 L (39.0-53.0) % Neutrophils # 12.8 H (1.3-7.7) k/uL Sodium 135 L (137-145) mmol/L Chloride 95 L (98-107) mmol/L Carbon Dioxide 31 H (22-30) mmol/L BUN 26 H (9-20) mg/dL Glucose 119 H (74-99) mg/dL POC Glucose (mg/dL) 128 H (75-99) mg/dL Calcium 8.3 L (8.4-10.2) mg/dL Total Bilirubin 1.7 H (0.2-1.3) mg/dL AST 153 H (17-59) U/L ALT 79 H (21-72) U/L Assessment and Plan Plan: Impression: [address] elevation myocardial infarction, status post PCI of the LAD 2 severe disease of the RCA 3 acute pulmonary edema, acute congestive heart failure. Secondary to ischemic cardiomyopathy. 4 remote smoking history 5 status post stenting of RCA on 07/13/2016 Recommendation: Agree with the present treatment plan including dual antiplatelet therapy along with statin, diuretics, and beta blockers. Continue diuretics and monitor electrolytes and renal profile closely. We'll continue to follow. Time with Patient: Less than 30
[2016-07-13] MEDS: LISINOPRIL 2.5 MG TAB PO SCH (13:48)
[2016-07-13 13:52] LABS: Glucose,Whole Blood 136 mg/dL (75-99)
[2016-07-13 18:03] LABS: Glucose,Whole Blood 117 mg/dL (75-99)
[2016-07-13 20:32] LABS: Glucose,Whole Blood 140 mg/dL (75-99)
[2016-07-13] MEDS: MELATONIN 3 MG TABLET PO SCH (20:44)
[2016-07-13] MEDS: MAGNESIUM OXIDE 400 MG TAB PO SCH (20:44)
[2016-07-13] MEDS: ATORVASTATIN 80 MG TAB PO SCH (20:48)
--- NOTE | 2016-07-13 23:00 | PTCA ---
DATE OF SERVICE: July 13, 2016. PROCEDURE PERFORMED: 1. Selective right coronary angiogram. 2. Successful stenting of the mid RCA using 2.75 x 28 mm Xience MARIE, which was post dilated using 3.0 mm noncompliant balloon with a good angiographic results. 3. Successful stenting of the distal RCA using 2.5 x 12 mm Xience MARIE with a good angiographic results. INDICATION: This is a pleasant 60-year-old gentleman who presented to the hospital a few days ago with acute anterior OR and underwent a heart catheterization and stenting of the LAD. At that point, he was found to have severe disease involving the mid and distal right coronary artery. The patient was brought today to undergo PCI of the RCA. Approach: Right radial artery. COMPLICATIONS: None. Level of sedation: Moderate. PROCEDURE DESCRIPTION: After obtaining informed the patient was brought to the cardiac clinical genetics laboratory chief. The right radial artery was cannulated using micropuncture technique. The micropuncture wire passed easily, then I placed a 6 Finnish sheath in the right radial artery. Subsequently I gave the patient 2 mg of verapamil IA and anticoagulation was initiated using Angiomax. Subsequently, I engaged the right coronary artery using JR4 guide. Then I did wire using a whisper wire. I did direct stenting on the lesion of the RCA using 2.75 x 28 mm Xience MARIE, where the stent was positioned under fluoroscopy guidance and it was deployed under 12 atmospheres for 30 seconds. Subsequently, I did post dilate using 3.3 mm balloon. The following angiogram showed good angiographic results. For the lesion in the distal RCA, did direct stenting using 2.5 x 12 mm Xience MARIE, where the stent again was positioned under fluoroscopy guidance and it was deployed under 12 atmospheres for 20 seconds. The following angiogram showed good angiographic results. POSTPROCEDURE MANAGEMENT: 1. Dual antiplatelet therapy. 2. Risk factor modification. 3. Follow up with the patient.
[2016-07-13] MEDS: HYDROmorphone 1 MG/ML 1 ML SYRINGE IVP PRN (23:06)
[2016-07-14 06:11] LABS: Glucose,Whole Blood 126 mg/dL (75-99)
[2016-07-14] MEDS: INSULIN LISPRO (humaLOG) 300 UNIT/3 ML VIAL SQ SCH ×4 (06:18→22:18)
[2016-07-14 06:28] LABS: Basophils % (A) 0 %; CH 29.3; CHCM 34.9; Eosinophils # (A) 0.1 k/uL (0-0.7); Eosinophils % (A) 2 %; HCT 36.2 % (39.0-53.0); HDW 2.68; HGB 12.3 gm/dL (13.0-17.5); Luc # (Auto) 0.23; Luc % (Auto) 2; Lymphocytes % (A) 11 %; MCH 28.5 pg (25.0-35.0); MCHC 33.9 g/dL (31.0-37.0); MCV 84.2 fL (80.0-100.0); Mean Platelet Volume 8.8; Monocytes # (A) 0.5 k/uL (0-1.0); Monocytes % (A) 6 %; Neutrophils # (A) 7.5 k/uL (1.3-7.7); Neutrophils % (A) 79 %; RDW 12.9 % (11.5-15.5); WBC 9.4 k/uL (3.8-10.6); WBC (Perox) 10.11
[2016-07-14] MEDS: PANTOPRAZOLE 40 MG TABLET PO SCH (06:41)
[2016-07-14 07:27] LABS: ALT 63 U/L (21-72); AST 81 U/L (17-59); Alkaline Phosphatase 63 U/L (38-126); Anion Gap 7 mmol/L; Blood Urea Nitrogen 24 mg/dL (9-20); Calcium 8.2 mg/dL (8.4-10.2); Carbon Dioxide 30 mmol/L (22-30); Chloride 98 mmol/L (98-107); Glucose 118 mg/dL (74-99); Magnesium 2.2 mg/dL (1.6-2.3); Non-African American GFR(MDRD) >60 (>60 ml/min/1.73 sqM); Potassium 3.8 mmol/L (3.5-5.1); Sodium 135 mmol/L (137-145); Total Bilirubin 1.1 mg/dL (0.2-1.3); Total Protein 5.7 g/dL (6.3-8.2)
[2016-07-14] MEDS: AMIODARONE 200 MG TAB PO SCH ×2 (09:53→22:16)
[2016-07-14] MEDS: FUROSEMIDE 10 MG/ML 4 ML VIAL IV SCH ×2 (09:54→22:17)
[2016-07-14] MEDS: ASPIRIN 325 MG TAB PO SCH (09:54)
[2016-07-14] MEDS: AMOXIC-POT CLAV 875-125MG 1 EACH TAB PO SCH ×2 (09:54→22:17)
[2016-07-14] MEDS: PRASUGREL 10 MG TAB PO SCH (09:55)
[2016-07-14] MEDS: METOPROLOL TARTRATE 25 MG TAB PO SCH ×2 (11:06→22:19)
--- NOTE | 2016-07-14 11:48 | XR ---
EXAMINATION TYPE: XR chest 1V portable DATE OF EXAM: 07/14/2016 11:44 AM CLINICAL HISTORY: Difficulty breathing progress study. CHF. TECHNIQUE: Single AP portable upright view of the chest is obtained. COMPARISON: Chest x-ray from one day earlier FINDINGS: Cardiac silhouette size is stable and mildly enlarged. There is increasing perihilar opaci ty consistent with worsening central edema and congestion. No large pleural effusion or pneumothorax is seen bilaterally. Old right posterior lateral sixth rib fracture is redemonstrated. IMPRESSION: Mild cardiomegaly with new central vascular congestion and perihilar alveolar edema, find ings are consistent with CHF progression or worsening.
[2016-07-14 11:58] LABS: Glucose,Whole Blood 112 mg/dL (75-99)
[2016-07-14] MEDS: LISINOPRIL 2.5 MG TAB PO SCH (12:19)
--- NOTE | 2016-07-14 13:32 | P.PN ---
Subjective This is a 60-year-old male who plans to establish himself with Dr. Welsh's primary care physician. He has a past medical history of gastroesophageal reflux disease. Patient states that he went for a hike on Monday morning which was shorter than his normal 3-5 miles and he decided to go for a longer hike later in the day. While he was out he developed chest pressure with left arm involvement and feeling woozy. He sat down he took an aspirin and anti-gas medication and his symptoms went away. On Monday the patient had the same symptoms again but much worse. He does have history of stress test about 5 years ago that was normal. He presented by EMS to the hospital and went directly to the Front End Developer and found to have critical disease involving the proximal LAD and severe disease involving the mid RCA and is status post stenting of the proximal LAD. Patient has been diagnosed with acute anterior ST elevated myocardial infarction. He remains in intensive care unit. He is complaining of pain in the right sternal border with deep inspiration and tender to touch. He also has tenderness to the epigastric area. Echocardiogram reveals EF 25-30% with trace mitral regurgitation, trace tricuspid regurgitation. AST 991 and ALT 163. ProBNP 1220. Triglycerides 113 , cholesterol 224, LDL 146 and HDL 55. WBC count at 25. 07/12: Repeat chest x-ray shows stable to minimally improved CHF with pulmonary edema. Dr. Hylton had added Augmentin for possible aspiration. He is currently on Lasix 40 mg IV changed to daily. WBC is 22, AST 358, ALT 113, GFR greater than 60. He has been on high flow oxygen 5 L pulse oxing 94%. Weight is down 2-1 /2 kg. Patient had run of [employer] and started on oral amiodarone. Blood pressure has been on the low side and meds are being adjusted. Transfer to [facility]. Magnesius level added as patient will be started on Mag oxide which patient states helps him sleep. 07/13: Magnesium level II.2. Total bilirubin 1.7, AST 153 and ALT 79.WBC down to 15.1. Repeat chest x-ray shows correlate for heart failure. Patient returned to labor standards director for 2 more stents which was planned. He is in ICU waiting for [facility] bed. Melatonin added for insomnia. 07/14: On 07/13, patient underwent successful stenting of the mid RCA and distal RCA. He is now seen on the selective care unit. He is feeling lousy in general. TSH, free T4, cortisol levels, vitamin B12 levels ordered. Patient may require LifeVest before discharge. patient states that the melatonin did not help him sleep last night and he has been on as much as 60 mg at home without help with insomnia. Objective - Vital Signs Vital signs: Vital Signs Temp 97.1 F L 07/14/16 07:57 Pulse 78 07/14/16 07:57 Resp 16 07/14/16 09:03 BP 104/62 07/14/16 07:57 Pulse Ox 93 L 07/14/16 07:57 Intake & Output 07/13/16 07/14/16 07/14/16 18:59 06:59 18:59 Intake Total 901 300 0 Output Total 450 400 Balance 451 -100 0 Weight 89.3 kg 91.6 kg Intake: IV 451 Intake, IV Titration 450 300 Amount Sodium Chloride 0.9% 1, 450 300 000 ml @ 75 mls/hr IV . [id number] ON LICENSE OF [facility] Rx#:[id number] Oral 0 Output: Urine 450 400 Other: Voiding Method Urinal Urinal # Voids 1 1 # Bowel Movements 1 - Exam Gen: This is a 60-year-old male. He is sitting in the ICU bed and appears to be in no acute distress. Patient does appear to be anxious. HEENT: Head is atraumatic, normocephalic. Pupils equal, round. Sclerae is anicteric. NECK: Supple. No JVD. No lymphadenopathy. No thyromegaly. LUNGS: bilateral rhonchi. No intercostal retractions. HEART: Regular rate and rhythm. No murmur. ABDOMEN: Soft. Bowel sounds are present. No masses. No tenderness. EXTREMITIES: No pedal edema. No calf tenderness. NEUROLOGICAL: Patient is awake, alert and oriented x3. Cranial nerves 2 through 12 are grossly intact. - Labs CBC & Chem 7: 07/14/16 05:55 07/14/16 05:53 Labs: Abnormal Lab Results - Last 24 Hours (Table) 07/13/16 07/13/16 07/13/16 Range/Units 13:50 18:01 20:31 Hgb (13.0-17.5) gm/dL Hct (39.0-53.0) % Sodium (137-145) mmol/L BUN (9-20) mg/dL Glucose (74-99) mg/dL POC Glucose (mg/dL) 136 H 117 H 140 H (75-99) mg/dL Calcium (8.4-10.2) mg/dL AST (17-59) U/L Total Protein (6.3-8.2) g/dL Albumin (3.5-5.0) g/dL 07/14/16 07/14/16 07/14/16 Range/Units 05:53 05:55 06:09 Hgb 12.3 L (13.0-17.5) gm/dL Hct 36.2 L (39.0-53.0) % Sodium 135 L (137-145) mmol/L BUN 24 H (9-20) mg/dL Glucose 118 H (74-99) mg/dL POC Glucose (mg/dL) 126 H (75-99) mg/dL Calcium 8.2 L (8.4-10.2) mg/dL AST 81 H (17-59) U/L Total Protein 5.7 L (6.3-8.2) g/dL Albumin 3.1 L (3.5-5.0) g/dL Assessment and Plan Plan: 1.Acute anterior ST elevation myocardial infarction status post left heart catheterization and successful stenting of the proximal LAD using 3.25 x 33 mm Xience MARIE with a good angiographic results. Continue aspirin, lipitor, lopressor, lisinopril, Effient nitroglycerine prn. Returned to labor standards director for 2 more stents. 2. GERD and gastritis. Protonix, and maalox. 3. Elevated blood sugar without history of diabetes. Humalog scale as needed. 4. Hyperlipidemia. Lipitor. 5. Acute pulomonary edema and acute systolic heart failure with ischemic cardiomyopathy. Lasix IV. 6. Elevated liver function tests due to hypoperfusion, improved. Discharge plan: return home Impression and plan of care have been directed as dictated by the signing physician. Latasha Lozada nurse practitioner acting as scribe for signing physician. Time with Patient: Greater than 30
--- NOTE | 2016-07-14 13:48 | P.PN ---
Subjective Principal diagnosis: Anterior STEMI This is a 60-year-old gentleman who presented to the hospital with an acute anterior wall ST elevation myocardial infarction. He underwent successful stenting of the proximal LAD, subsequent to that patient also underwent angioplasty and stenting of the right coronary artery yesterday by Dr. Ocampo. Patient was seen and examined this morning, complaints of feeling short of breath with very minimal exertion, denies any chest pains. Complains also of feeling extremely weak. Blood pressure this morning 94/60, heart rate in the 60s, 99% on 6 L of oxygen. Afebrile. Chest x-ray shows mild cardiomegaly with new central vascular congestion and perihilar alveolar edema, findings consistent with progressively worsening congestive heart failure. Patient was initiated yesterday on 40 mg of IV Lasix daily, we will increase this to twice a day today. He has had no further runs of nonsustained ventricular tachycardia noted on the monitor. Potassium today 3.8, BUN 24, creatinine 1.1. Echocardiogram with Doppler study revealed an overall left ventricular systolic function which is severely impaired with an ejection fraction of 25-30%. Mid basal inferior lateral segments jean carlos only. EKG reviewed this morning shows normal sinus rhythm with mild anterior ST changes. Objective - Vital Signs Vital signs: Vital Signs Temp 98.3 F 07/14/16 11:59 Pulse 63 07/14/16 11:59 Resp 17 07/14/16 11:59 BP 94/67 07/14/16 11:59 Pulse Ox 99 07/14/16 11:59 Intake & Output 07/13/16 07/14/16 07/14/16 18:59 06:59 18:59 Intake Total 901 300 0 Output Total 450 400 450 Balance 451 -100 -450 Weight 89.3 kg 91.6 kg Intake: IV 451 Intake, IV Titration 450 300 Amount Sodium Chloride 0.9% 1, 450 300 000 ml @ 75 mls/hr IV . [id number] [facility] Rx#:[id number] Oral 0 Output: Urine 450 400 450 Other: Voiding Method Urinal Urinal # Voids 1 1 # Bowel Movements 1 - Exam PHYSICAL EXAMINATION: HEENT: Head is atraumatic, normocephalic. Pupils equal, round. Neck is supple. There is elevated jugular venous pressure. HEART EXAMINATION: Heart S1, S2 normal. No murmur or gallop heard. CHEST EXAMINATION: Lungs reveal diminished air entry to bilateral bases with fine rales to the bases. ABDOMEN: Soft, nontender. Bowel sounds are heard. No organomegaly noted. EXTREMITIES: 2+ peripheral pulses with no evidence of peripheral edema and no calf tenderness noted. NEUROLOGIC patient is awake, alert and oriented -3. . - Labs CBC & Chem 7: 07/14/16 05:55 07/14/16 05:53 Labs: Abnormal Lab Results - Last 24 Hours (Table) 07/13/16 07/13/16 07/13/16 Range/Units 13:50 18:01 20:31 Hgb (13.0-17.5) gm/dL Hct (39.0-53.0) % Sodium (137-145) mmol/L BUN (9-20) mg/dL Glucose (74-99) mg/dL POC Glucose (mg/dL) 136 H 117 H 140 H (75-99) mg/dL Calcium (8.4-10.2) mg/dL AST (17-59) U/L Total Protein (6.3-8.2) g/dL Albumin (3.5-5.0) g/dL TSH (0.465-4.680) mIU/L 07/14/16 07/14/16 07/14/16 Range/Units 05:53 05:53 05:55 Hgb 12.3 L (13.0-17.5) gm/dL Hct 36.2 L (39.0-53.0) % Sodium 135 L (137-145) mmol/L BUN 24 H (9-20) mg/dL Glucose 118 H (74-99) mg/dL POC Glucose (mg/dL) (75-99) mg/dL Calcium 8.2 L (8.4-10.2) mg/dL AST 81 H (17-59) U/L Total Protein 5.7 L (6.3-8.2) g/dL Albumin 3.1 L (3.5-5.0) g/dL TSH 6.290 H (0.465-4.680) mIU/L 07/14/16 07/14/16 Range/Units 06:09 11:54 Hgb (13.0-17.5) gm/dL Hct (39.0-53.0) % Sodium (137-145) mmol/L BUN (9-20) mg/dL Glucose (74-99) mg/dL POC Glucose (mg/dL) 126 H 112 H (75-99) mg/dL Calcium (8.4-10.2) mg/dL AST (17-59) U/L Total Protein (6.3-8.2) g/dL Albumin (3.5-5.0) g/dL TSH (0.465-4.680) mIU/L Assessment and Plan (1) ST elevation (STEMI) myocardial infarction involving left anterior descending coronary artery Status: Acute (2) Presence of stent in LAD coronary artery Status: Acute (3) S/P right coronary artery (RCA) stent placement Status: Acute (4) Hyperlipemia Status: Acute Plan: We will continue amiodarone 400 mg one tablet by mouth twice a day for 2 more days then decrease the dose to 200 mg by mouth twice a day. We will increase the dose of IV Lasix to twice a day check lytes BUN and creatinine in the morning monitor intake and output closely. Patient will also require a LifeVest prior to discharge we'll begin working on this as well. EKG in the morning. DNP note has been reviewed, I agree with a documented findings and plan of care. Patient was seen and examined.
--- NOTE | 2016-07-14 14:44 | P.PN ---
Subjective Principal diagnosis: Acute ST elevation myocardial infarction This is a 60-year-old white male with no significant past medical history, patient was brought into the ER with acute onset of chest discomfort. Described the pain as across the chest as pressure and discomfort. Patient also had radiation of the pain to the left arm, and upon presentation he was found to have acute anterior ST elevation myocardial infarction. Patient underwent emergent cardiac catheterization and he was found to have critical disease involving the proximal LAD severe disease involving the RCA. Patient underwent successful stenting of the proximal LAD with good angiographic results using a drug eluting stent. Post cardiac cath, patient was sent to the ICU, and a chest x-ray clearly showed evidence of pulmonary edema. However the patient is now on Lasix at 40 mg IV push every 12 hours, I went ahead and recommended an extra dose of Lasix this morning. Patient describes dry hacking cough, difficulty laying flat, shortness of breath with any activity. No fever no chills no hemoptysis presently he is pain-free. No headaches no blurred vision no dizziness no nausea no vomiting no abdominal pain no melena no hematemesis no dysuria and no frequency no urgency. Patient was reevaluated today on 07/12/2016, seems to be doing better today compared to yesterday. Less shortness of breath, able to lay flat today, chest x-ray continues to show some congestive heart failure changes, and considering the patient had possible aspiration yesterday, I added Augmentin empirically. And he will be given higher dose of Lasix, 40 mg IV push every 8 hours. Instead of every 12. WBC count today is 22.2 hemoglobin is 13.8 basically with embolic profile is normal renal profile is normal. Patient was reevaluated today on 07/13/2016, he underwent more stenting today by Dr. Ocampo, final operative report is not available, but according to the patient he had successful stent placement. Chest x-ray from today showed significant improvement in his pulmonary edema, clinically the patient is feeling better, breathing a lot easier. Labs were reviewed, renal profile was also reviewed and creatinine is 1.21 today. Patient was reevaluated today on 07/14/2016, feeling generally well except for weakness. No cough no wheezing no shortness of breath. Follow-up chest x-ray continues to show mild cardiomegaly, central vascular congestion and perihilar alveolar edema consistent with congestive heart failure. I still believe the patient will likely improve with more Lasix, otherwise we will run into issues with his pulmonary edema as it was initially on the first day of admission. Objective - Vital Signs Vital signs: Vital Signs Temp 98.3 F 07/14/16 11:59 Pulse 63 07/14/16 12:00 Resp 18 07/14/16 12:00 BP 94/67 07/14/16 11:59 Pulse Ox 99 07/14/16 11:59 Intake & Output 07/13/16 07/14/16 07/14/16 18:59 06:59 18:59 Intake Total 901 300 0 Output Total 450 400 450 Balance 451 -100 -450 Weight 89.3 kg 91.6 kg Intake: IV 451 Intake, IV Titration 450 300 Amount Sodium Chloride 0.9% 1, 450 300 000 ml @ 75 mls/hr IV . [id number] [facility] Rx#:[id number] Oral 0 Output: Urine 450 400 450 Other: Voiding Method Urinal Urinal Urinal # Voids 1 1 # Bowel Movements 1 - Exam Physical Exam: Revealed a 60-year-old white male in mild respiratory distress HEENT:[Neck is supple.] [No neck masses.] [No thyromegaly.] [No JVD.] Chest: [Minimal crackles at the bases] Cardiac Exam: [Normal S1 and S2, no S3 gallop, no murmur.] Abdomen: [Soft, nontender, no megaly, no rebound, no guarding, normal bowel sounds.] Extremities: [No clubbing, no edema, no cyanosis.] Neurological Exam: [No focal neurologic deficit.] - Labs CBC & Chem 7: 07/14/16 05:55 07/14/16 05:53 Labs: Abnormal Lab Results - Last 24 Hours (Table) 07/13/16 07/13/16 07/14/16 Range/Units 18:01 20:31 05:53 Hgb (13.0-17.5) gm/dL Hct (39.0-53.0) % Sodium 135 L (137-145) mmol/L BUN 24 H (9-20) mg/dL Glucose 118 H (74-99) mg/dL POC Glucose (mg/dL) 117 H 140 H (75-99) mg/dL Calcium 8.2 L (8.4-10.2) mg/dL AST 81 H (17-59) U/L Total Protein 5.7 L (6.3-8.2) g/dL Albumin 3.1 L (3.5-5.0) g/dL TSH (0.465-4.680) mIU/L 07/14/16 07/14/16 07/14/16 Range/Units 05:53 05:55 06:09 Hgb 12.3 L (13.0-17.5) gm/dL Hct 36.2 L (39.0-53.0) % Sodium (137-145) mmol/L BUN (9-20) mg/dL Glucose (74-99) mg/dL POC Glucose (mg/dL) 126 H (75-99) mg/dL Calcium (8.4-10.2) mg/dL AST (17-59) U/L Total Protein (6.3-8.2) g/dL Albumin (3.5-5.0) g/dL TSH 6.290 H (0.465-4.680) mIU/L 07/14/16 Range/Units 11:54 Hgb (13.0-17.5) gm/dL Hct (39.0-53.0) % Sodium (137-145) mmol/L BUN (9-20) mg/dL Glucose (74-99) mg/dL POC Glucose (mg/dL) 112 H (75-99) mg/dL Calcium (8.4-10.2) mg/dL AST (17-59) U/L Total Protein (6.3-8.2) g/dL Albumin (3.5-5.0) g/dL TSH (0.465-4.680) mIU/L Assessment and Plan Plan: Impression: [address] elevation myocardial infarction, status post PCI of the LAD 2 severe disease of the RCA 3 acute pulmonary edema, acute congestive heart failure. Secondary to ischemic cardiomyopathy. 4 remote smoking history 5 status post stenting of RCA on 07/13/2016 Recommendation: Agree with the present treatment plan including dual antiplatelet therapy along with statin, diuretics, and beta blockers. Continue diuretics and monitor electrolytes and renal profile closely. Patient is presently on 40 mg of Lasix IV push every 12 hours. May even require more if his chest x-ray does not show improvement we'll continue to follow Time with Patient: Less than 30
[2016-07-14 16:47] LABS: Glucose,Whole Blood 132 mg/dL (75-99)
[2016-07-14 20:49] LABS: Glucose,Whole Blood 140 mg/dL (75-99)
[2016-07-14] MEDS: ATORVASTATIN 80 MG TAB PO SCH (22:17)
[2016-07-14] MEDS: MELATONIN 3 MG TABLET PO SCH (22:18)
[2016-07-14] MEDS: MAGNESIUM OXIDE 400 MG TAB PO SCH (22:18)
[2016-07-15] MEDS: HYDROmorphone 1 MG/ML 1 ML SYRINGE IVP PRN (00:11)
[2016-07-15 06:09] LABS: Glucose,Whole Blood 116 mg/dL (75-99)
[2016-07-15 06:15] LABS: Basophils # (A) 0.1 k/uL (0-0.2); Basophils % (A) 1 %; CH 29.8; CHCM 35.7; Eosinophils # (A) 0.2 k/uL (0-0.7); Eosinophils % (A) 2 %; HDW 2.78; HGB 12.9 gm/dL (13.0-17.5); Luc # (Auto) 0.17; Luc % (Auto) 2; Lymphocytes % (A) 10 %; MCH 29.2 pg (25.0-35.0); MCHC 34.9 g/dL (31.0-37.0); MCV 83.7 fL (80.0-100.0); Mean Platelet Volume 9.4; Monocytes # (A) 0.6 k/uL (0-1.0); Monocytes % (A) 7 %; Neutrophils # (A) 7.2 k/uL (1.3-7.7); Neutrophils % (A) 78 %; RBC 4.42 m/uL (4.30-5.90); RDW 12.6 % (11.5-15.5); WBC 9.2 k/uL (3.8-10.6); WBC (Perox) 10.09
[2016-07-15 06:37] LABS: Magnesium 2.2 mg/dL (1.6-2.3); Phosphorous 4.7 mg/dL (2.5-4.5)
[2016-07-15] MEDS: INSULIN LISPRO (humaLOG) 300 UNIT/3 ML VIAL SQ SCH ×4 (06:52→20:56)
[2016-07-15] MEDS: PANTOPRAZOLE 40 MG TABLET PO SCH (06:53)
[2016-07-15] MEDS: FUROSEMIDE 10 MG/ML 4 ML VIAL IV SCH ×2 (10:13→20:31)
[2016-07-15] MEDS: AMIODARONE 200 MG TAB PO SCH ×2 (10:20→20:12)
[2016-07-15] MEDS: ASPIRIN 81 MG CHEW PO SCH (10:21)
[2016-07-15] MEDS: PRASUGREL 10 MG TAB PO SCH (10:21)
[2016-07-15] MEDS: AMOXIC-POT CLAV 875-125MG 1 EACH TAB PO SCH ×2 (10:21→20:12)
[2016-07-15] MEDS: METOPROLOL TARTRATE 25 MG TAB PO SCH ×2 (10:21→20:13)
[2016-07-15 10:55] LABS: Reticulocyte % 2.8 % (0.5-2.0)
--- NOTE | 2016-07-15 11:03 | P.PN ---
Subjective This is a 60-year-old male who plans to establish himself with Dr. Welsh's primary care physician. He has a past medical history of gastroesophageal reflux disease. Patient states that he went for a hike on Monday morning which was shorter than his normal 3-5 miles and he decided to go for a longer hike later in the day. While he was out he developed chest pressure with left arm involvement and feeling woozy. He sat down he took an aspirin and anti-gas medication and his symptoms went away. On Monday the patient had the same symptoms again but much worse. He does have history of stress test about 5 years ago that was normal. He presented by EMS to the hospital and went directly to the [facility] and found to have critical disease involving the proximal LAD and severe disease involving the mid RCA and is status post stenting of the proximal LAD. Patient has been diagnosed with acute anterior ST elevated myocardial infarction. He remains in intensive care unit. He is complaining of pain in the right sternal border with deep inspiration and tender to touch. He also has tenderness to the epigastric area. Echocardiogram reveals EF 25-30% with trace mitral regurgitation, trace tricuspid regurgitation. AST 991 and ALT 163. ProBNP 1220. Triglycerides 113 , cholesterol 224, LDL 146 and HDL 55. WBC count at 25. 07/12: Repeat chest x-ray shows stable to minimally improved CHF with pulmonary edema. Dr. Hylton had added Augmentin for possible aspiration. He is currently on Lasix 40 mg IV changed to daily. WBC is 22, AST 358, ALT 113, GFR greater than 60. He has been on high flow oxygen 5 L pulse oxing 94%. Weight is down 2-1 /2 kg. Patient had run of E-Semble and started on oral amiodarone. Blood pressure has been on the low side and meds are being adjusted. Transfer to [facility]. Magnesius level added as patient will be started on Mag oxide which patient states helps him sleep. 07/13: Magnesium level II.2. Total bilirubin 1.7, AST 153 and ALT 79.WBC down to 15.1. Repeat chest x-ray shows correlate for heart failure. Patient returned to crime lab technician for 2 more stents which was planned. He is in ICU waiting for [facility] bed. Melatonin added for insomnia. 07/14: On 07/13, patient underwent successful stenting of the mid RCA and distal RCA. He is now seen on the [facility]. He is feeling lousy in general. TSH, free T4, cortisol levels, vitamin B12 levels ordered. Patient may require LifeVest before discharge. patient states that the melatonin did not help him sleep last night and he has been on as much as 60 mg at home without help with insomnia. 07/15: patient denies any chest pain. He is currently on Lasix 40 mg IV every 12 hours. patient gives history that he gives blood once every month as well as platelets every 2 weeks and has been doing this for 30 years. Iron studies have been ordered. Objective - Vital Signs Vital signs: Vital Signs Temp 98.2 F 07/15/16 07:48 Pulse 66 07/15/16 07:48 Resp 16 07/15/16 07:48 BP 102/61 07/15/16 07:48 Pulse Ox 94 L 07/15/16 07:48 Intake & Output 07/14/16 07/15/16 07/15/16 18:59 06:59 18:59 Intake Total 118 1080 Output Total 850 2150 Balance -732 -1070 Intake: Oral 118 1080 Output: Urine 850 2150 Other: Voiding Method Urinal Urinal # Voids 1 - Exam Gen: This is a 60-year-old male. He is sitting in the ICU bed and appears to be in no acute distress. Patient does appear to be anxious. HEENT: Head is atraumatic, normocephalic. Pupils equal, round. Sclerae is anicteric. NECK: Supple. No JVD. No lymphadenopathy. No thyromegaly. LUNGS: bilateral rhonchi. No intercostal retractions. HEART: Regular rate and rhythm. No murmur. ABDOMEN: Soft. Bowel sounds are present. No masses. No tenderness. EXTREMITIES: No pedal edema. No calf tenderness. NEUROLOGICAL: Patient is awake, alert and oriented x3. Cranial nerves 2 through 12 are grossly intact. - Labs CBC & Chem 7: 07/15/16 05:40 07/14/16 05:53 Labs: Abnormal Lab Results - Last 24 Hours (Table) 07/14/16 07/14/16 07/14/16 Range/Units 05:53 11:54 16:44 Hgb (13.0-17.5) gm/dL Hct (39.0-53.0) % POC Glucose (mg/dL) 112 H 132 H (75-99) mg/dL Phosphorus (2.5-4.5) mg/dL TSH 6.290 H (0.465-4.680) mIU/L 07/14/16 07/15/16 07/15/16 Range/Units 20:47 05:40 05:40 Hgb 12.9 L (13.0-17.5) gm/dL Hct 37.0 L (39.0-53.0) % POC Glucose (mg/dL) 140 H (75-99) mg/dL Phosphorus 4.7 H (2.5-4.5) mg/dL TSH (0.465-4.680) mIU/L 07/15/16 Range/Units 06:08 Hgb (13.0-17.5) gm/dL Hct (39.0-53.0) % POC Glucose (mg/dL) 116 H (75-99) mg/dL Phosphorus (2.5-4.5) mg/dL TSH (0.465-4.680) mIU/L Assessment and Plan Plan: 1.Acute anterior ST elevation myocardial infarction status post left heart catheterization and successful stenting of the proximal LAD using 3.25 x 33 mm Xience MARIE with a good angiographic results. Continue aspirin, lipitor, lopressor, lisinopril, Effient nitroglycerine prn. Returned to crime lab technician for 2 more stents RCA on 07/13. 2. GERD and gastritis. Protonix, and maalox. 3. Elevated blood sugar without history of diabetes. Humalog scale as needed. 4. Hyperlipidemia. Lipitor. 5. Acute pulomonary edema and acute systolic heart failure with ischemic cardiomyopathy. Lasix IV. 6. Elevated liver function tests due to hypoperfusion, improved. Discharge plan: return home Impression and plan of care have been directed as dictated by the signing physician. Latasha Lozada nurse practitioner acting as scribe for signing physician. Time with Patient: Greater than 30
[2016-07-15] MEDS: LISINOPRIL 2.5 MG TAB PO SCH (11:25)
[2016-07-15 11:30] LABS: Anion Gap 11 mmol/L; Blood Urea Nitrogen 24 mg/dL (9-20); Calcium 8.5 mg/dL (8.4-10.2); Carbon Dioxide 30 mmol/L (22-30); Chloride 96 mmol/L (98-107); Glucose 119 mg/dL (74-99); Iron 29 ug/dL (49-181); Non-African American GFR(MDRD) >60 (>60 ml/min/1.73 sqM); Potassium 3.6 mmol/L (3.5-5.1); Sodium 137 mmol/L (137-145)
[2016-07-15 11:42] LABS: Glucose,Whole Blood 190 mg/dL (75-99)
[2016-07-15 11:43] LABS: % Iron Saturation 11.6 % (20-50); Total Iron Binding Capacity 251 ug/dL (261-462)
--- NOTE | 2016-07-15 11:56 | P.PN ---
Subjective Principal diagnosis: Anterior STEMI This is a 60-year-old gentleman who presented to the hospital with an acute anterior wall ST elevation myocardial infarction. He underwent successful stenting of the proximal LAD, subsequent to that patient also underwent angioplasty and stenting of the right coronary artery yesterday by Dr. Ocampo. Patient was seen and examined this morning, complaints of feeling short of breath with very minimal exertion, denies any chest pains. Complains also of feeling extremely weak. Blood pressure this morning 94/60, heart rate in the 60s, 99% on 6 L of oxygen. Afebrile. Chest x-ray shows mild cardiomegaly with new central vascular congestion and perihilar alveolar edema, findings consistent with progressively worsening congestive heart failure. The patient's dose of IV Lasix was increased to twice a day yesterday. He diuresed well through the night last night. At the time of my examination this morning, patient states he feels much better overall, denies any chest discomfort, breathing is stable. Lytes BUN and creatinine are pending. No further nonsustained ventricular tachycardia noted on the monitor. Patient has been encouraged to be up ambulating in the hallway today. Objective - Vital Signs Vital signs: Vital Signs Temp 97.2 F L 07/15/16 11:07 Pulse 70 07/15/16 11:07 Resp 17 07/15/16 11:07 BP 116/67 07/15/16 11:07 Pulse Ox 94 L 07/15/16 11:07 Intake & Output 07/14/16 07/15/16 07/15/16 18:59 06:59 18:59 Intake Total 118 1080 Output Total 850 2150 220 Balance -732 -1070 -220 Intake: Oral 118 1080 Output: Urine 850 2150 220 Other: Voiding Method Urinal Urinal Urinal # Voids 1 - Exam PHYSICAL EXAMINATION: HEENT: Head is atraumatic, normocephalic. Pupils equal, round. Neck is supple. There is elevated jugular venous pressure. HEART EXAMINATION: Heart S1, S2 normal. No murmur or gallop heard. CHEST EXAMINATION: Lungs reveal diminished air entry to bilateral bases with fine rales to the bases. ABDOMEN: Soft, nontender. Bowel sounds are heard. No organomegaly noted. EXTREMITIES: 2+ peripheral pulses with no evidence of peripheral edema and no calf tenderness noted. NEUROLOGIC patient is awake, alert and oriented -3. . - Labs CBC & Chem 7: 07/15/16 05:40 07/14/16 05:53 Labs: Abnormal Lab Results - Last 24 Hours (Table) 07/14/16 07/14/16 07/14/16 Range/Units 05:53 11:54 16:44 Hgb (13.0-17.5) gm/dL Hct (39.0-53.0) % Retic Count (0.5-2.0) % POC Glucose (mg/dL) 112 H 132 H (75-99) mg/dL Phosphorus (2.5-4.5) mg/dL TSH 6.290 H (0.465-4.680) mIU/L 07/14/16 07/15/16 07/15/16 Range/Units 20:47 05:40 05:40 Hgb 12.9 L (13.0-17.5) gm/dL Hct 37.0 L (39.0-53.0) % Retic Count (0.5-2.0) % POC Glucose (mg/dL) 140 H (75-99) mg/dL Phosphorus 4.7 H (2.5-4.5) mg/dL TSH (0.465-4.680) mIU/L 07/15/16 07/15/16 07/15/16 Range/Units 05:40 06:08 11:40 Hgb (13.0-17.5) gm/dL Hct (39.0-53.0) % Retic Count 2.8 H (0.5-2.0) % POC Glucose (mg/dL) 116 H 190 H (75-99) mg/dL Phosphorus (2.5-4.5) mg/dL TSH (0.465-4.680) mIU/L Assessment and Plan (1) ST elevation (STEMI) myocardial infarction involving left anterior descending coronary artery Status: Acute (2) Presence of stent in LAD coronary artery Status: Acute (3) S/P right coronary artery (RCA) stent placement Status: Acute (4) Hyperlipemia Status: Acute Plan: We will continue amiodarone 400 mg one tablet by mouth twice a day for 1 more days then decrease the dose to 200 mg by mouth twice a day. We will continue current dose of IV Lasix. Continue to monitor intake and output along with daily weights closely.. Patient will also require a LifeVest prior to discharge we'll begin working on this as well. DNP note has been reviewed, I agree with a documented findings and plan of care. Patient was seen and examined.
--- NOTE | 2016-07-15 12:49 | P.PN ---
Subjective Principal diagnosis: Acute ST elevation myocardial infarction. This is a 60-year-old white male with no significant past medical history, patient was brought into the ER with acute onset of chest discomfort. Described the pain as across the chest as pressure and discomfort. Patient also had radiation of the pain to the left arm, and upon presentation he was found to have acute anterior ST elevation myocardial infarction. Patient underwent emergent cardiac catheterization and he was found to have critical disease involving the proximal LAD severe disease involving the RCA. Patient underwent successful stenting of the proximal LAD with good angiographic results using a drug eluting stent. Post cardiac cath, patient was sent to the ICU, and a chest x-ray clearly showed evidence of pulmonary edema. However the patient is now on Lasix at 40 mg IV push every 12 hours, I went ahead and recommended an extra dose of Lasix this morning. Patient describes dry hacking cough, difficulty laying flat, shortness of breath with any activity. No fever no chills no hemoptysis presently he is pain-free. No headaches no blurred vision no dizziness no nausea no vomiting no abdominal pain no melena no hematemesis no dysuria and no frequency no urgency. Patient was reevaluated today on 07/12/2016, seems to be doing better today compared to yesterday. Less shortness of breath, able to lay flat today, chest x-ray continues to show some congestive heart failure changes, and considering the patient had possible aspiration yesterday, I added Augmentin empirically. And he will be given higher dose of Lasix, 40 mg IV push every 8 hours. Instead of every 12. WBC count today is 22.2 hemoglobin is 13.8 basically with embolic profile is normal renal profile is normal. Patient was reevaluated today on 07/13/2016, he underwent more stenting today by Dr. Ocampo, final operative report is not available, but according to the patient he had successful stent placement. Chest x-ray from today showed significant improvement in his pulmonary edema, clinically the patient is feeling better, breathing a lot easier. Labs were reviewed, renal profile was also reviewed and creatinine is 1.21 today. Patient was reevaluated today on 07/14/2016, feeling generally well except for weakness. No cough no wheezing no shortness of breath. Follow-up chest x-ray continues to show mild cardiomegaly, central vascular congestion and perihilar alveolar edema consistent with congestive heart failure. I still believe the patient will likely improve with more Lasix, otherwise we will run into issues with his pulmonary edema as it was initially on the first day of admission. Objective - Vital Signs Vital signs: Vital Signs Temp 98.0 F 07/15/16 12:00 Pulse 82 07/15/16 12:00 Resp 18 07/15/16 12:00 BP 117/75 07/15/16 12:00 Pulse Ox 93 L 07/15/16 12:00 Intake & Output 07/14/16 07/15/16 07/15/16 18:59 06:59 18:59 Intake Total 118 1080 Output Total 850 2150 440 Balance -732 -3892 -608 Weight 91.6 kg Intake: Oral 118 1080 Output: Urine 850 2150 440 Other: Voiding Method Urinal Urinal Urinal # Voids 1 1 # Bowel Movements 1 - Exam GENERAL EXAM: Alert, active, comfortable in no apparent distress. HEAD: Normocephalic. EYES: Normal reaction of pupils, equal size. NOSE: Clear with pink turbinates. THROAT: No erythema or exudates. NECK: No masses, no JVD. CHEST: No chest wall deformity. LUNGS: Equal air entry with faint crackles in the posterior bases. CVS: S1 and S2 normal with no audible mumurs, regular rhythm. ABDOMEN: No hepatosplenomegaly, normal bowel sounds, no guarding or rigidity. SPINE: No scoliosis or deformity SKIN: No rashes CENTRAL NERVOUS SYSTEM: No focal deficits, tone is normal in all 4 extremities. Extremities: There is no significant peripheral edema. No clubbing, no cyanosis. Peripheral pulses are intact. - Labs CBC & Chem 7: 07/15/16 05:40 07/15/16 05:40 Labs: Abnormal Lab Results - Last 24 Hours (Table) 07/14/16 07/14/16 07/14/16 Range/Units 05:53 16:44 20:47 Hgb (13.0-17.5) gm/dL Hct (39.0-53.0) % Retic Count (0.5-2.0) % Chloride (98-107) mmol/L BUN (9-20) mg/dL Glucose (74-99) mg/dL POC Glucose (mg/dL) 132 H 140 H (75-99) mg/dL Phosphorus (2.5-4.5) mg/dL Iron (49-181) ug/dL TIBC (261-462) ug/dL % Saturation (20-50) % TSH 6.290 H (0.465-4.680) mIU/L 07/15/16 07/15/16 07/15/16 Range/Units 05:40 05:40 05:40 Hgb 12.9 L (13.0-17.5) gm/dL Hct 37.0 L (39.0-53.0) % Retic Count 2.8 H (0.5-2.0) % Chloride (98-107) mmol/L BUN (9-20) mg/dL Glucose (74-99) mg/dL POC Glucose (mg/dL) (75-99) mg/dL Phosphorus 4.7 H (2.5-4.5) mg/dL Iron (49-181) ug/dL TIBC (261-462) ug/dL % Saturation (20-50) % TSH (0.465-4.680) mIU/L 07/15/16 07/15/16 07/15/16 Range/Units 05:40 06:08 11:40 Hgb (13.0-17.5) gm/dL Hct (39.0-53.0) % Retic Count (0.5-2.0) % Chloride 96 L (98-107) mmol/L BUN 24 H (9-20) mg/dL Glucose 119 H (74-99) mg/dL POC Glucose (mg/dL) 116 H 190 H (75-99) mg/dL Phosphorus (2.5-4.5) mg/dL Iron 29 L (49-181) ug/dL TIBC 251 L (261-462) ug/dL % Saturation 11.6 L (20-50) % TSH (0.465-4.680) mIU/L Assessment and Plan Plan: Impression: [address] elevation myocardial infarction, status post PCI of the LAD 2 severe disease of the RCA 3 acute pulmonary edema, acute congestive heart failure. Secondary to ischemic cardiomyopathy, impaired left ventricular systolic function with estimated ejection fraction 35-30%. 4 remote smoking history 5 status post stenting of RCA on 07/13/2016 6 ventricular tachycardia, initiated on amiodarone, and the plan is for LifeVest prior to discharge. Plan: The patient was seen and evaluated by Dr. Hylton. He is remaining on IV Lasix for now. Yesterday's chest x-ray did reveal central vascular congestion and perihilar alveolar edema. Somewhat worse compared to previous. We will continue to follow make further recommendations based on his clinical status.
[2016-07-15 16:45] LABS: Glucose,Whole Blood 102 mg/dL (75-99)
[2016-07-15] MEDS: ATORVASTATIN 80 MG TAB PO SCH (20:12)
[2016-07-15] MEDS: MELATONIN 3 MG TABLET PO SCH (20:13)
[2016-07-15] MEDS: MAGNESIUM OXIDE 400 MG TAB PO SCH (20:17)
[2016-07-15 20:48] LABS: Glucose,Whole Blood 148 mg/dL (75-99)
[2016-07-16 06:12] LABS: Glucose,Whole Blood 127 mg/dL (75-99)
[2016-07-16] MEDS: INSULIN LISPRO (humaLOG) 300 UNIT/3 ML VIAL SQ SCH ×4 (06:24→22:18)
[2016-07-16] MEDS: PANTOPRAZOLE 40 MG TABLET PO SCH (06:30)
[2016-07-16 06:39] LABS: Anion Gap 11 mmol/L; Blood Urea Nitrogen 24 mg/dL (9-20); Calcium 9.1 mg/dL (8.4-10.2); Carbon Dioxide 32 mmol/L (22-30); Chloride 94 mmol/L (98-107); Glucose 128 mg/dL (74-99); Non-African American GFR(MDRD) >60 (>60 ml/min/1.73 sqM); Potassium 3.4 mmol/L (3.5-5.1); Sodium 137 mmol/L (137-145)
[2016-07-16] MEDS: AMOXIC-POT CLAV 875-125MG 1 EACH TAB PO SCH ×2 (08:34→22:17)
[2016-07-16] MEDS: METOPROLOL TARTRATE 25 MG TAB PO SCH ×2 (08:34→22:18)
[2016-07-16] MEDS: ASPIRIN 81 MG CHEW PO SCH (08:34)
[2016-07-16] MEDS: FUROSEMIDE 10 MG/ML 4 ML VIAL IV SCH (08:34)
[2016-07-16] MEDS: PRASUGREL 10 MG TAB PO SCH (08:34)
[2016-07-16] MEDS: AMIODARONE 200 MG TAB PO SCH ×2 (08:34→22:17)
[2016-07-16] MEDS: LISINOPRIL 2.5 MG TAB PO SCH (08:35)
--- NOTE | 2016-07-16 10:12 | XR ---
EXAMINATION TYPE: XR chest 1V portable DATE OF EXAM: 07/16/2016 10:06 AM HISTORY: chf. REFERENCE: Previous study dated 07/14/2016. FINDINGS: The heart is upper limits of normal in size. The lungs are now clear. Pulmonary vasculature is normal. Pleural spaces are clear. IMPRESSION: NO ACUTE INTRATHORACIC ABNORMALITY.
[2016-07-16] MEDS: POTASSIUM CHLORIDE ER 20 MEQ TAB.ER PO SCH ×3 (10:16→13:39)
--- NOTE | 2016-07-16 10:57 | P.PN ---
Subjective Principal diagnosis: Acute ST elevation myocardial infarction This is a 60-year-old white male with no significant past medical history, patient was brought into the ER with acute onset of chest discomfort. Described the pain as across the chest as pressure and discomfort. Patient also had radiation of the pain to the left arm, and upon presentation he was found to have acute anterior ST elevation myocardial infarction. Patient underwent emergent cardiac catheterization and he was found to have critical disease involving the proximal LAD severe disease involving the RCA. Patient underwent successful stenting of the proximal LAD with good angiographic results using a drug eluting stent. Post cardiac cath, patient was sent to the ICU, and a chest x-ray clearly showed evidence of pulmonary edema. However the patient is now on Lasix at 40 mg IV push every 12 hours, I went ahead and recommended an extra dose of Lasix this morning. Patient describes dry hacking cough, difficulty laying flat, shortness of breath with any activity. No fever no chills no hemoptysis presently he is pain-free. No headaches no blurred vision no dizziness no nausea no vomiting no abdominal pain no melena no hematemesis no dysuria and no frequency no urgency. Patient was reevaluated today on 07/12/2016, seems to be doing better today compared to yesterday. Less shortness of breath, able to lay flat today, chest x-ray continues to show some congestive heart failure changes, and considering the patient had possible aspiration yesterday, I added Augmentin empirically. And he will be given higher dose of Lasix, 40 mg IV push every 8 hours. Instead of every 12. WBC count today is 22.2 hemoglobin is 13.8 basically with embolic profile is normal renal profile is normal. Patient was reevaluated today on 07/13/2016, he underwent more stenting today by Dr. Ocampo, final operative report is not available, but according to the patient he had successful stent placement. Chest x-ray from today showed significant improvement in his pulmonary edema, clinically the patient is feeling better, breathing a lot easier. Labs were reviewed, renal profile was also reviewed and creatinine is 1.21 today. Patient was reevaluated today on 07/14/2016, feeling generally well except for weakness. No cough no wheezing no shortness of breath. Follow-up chest x-ray continues to show mild cardiomegaly, central vascular congestion and perihilar alveolar edema consistent with congestive heart failure. I still believe the patient will likely improve with more Lasix, otherwise we will run into issues with his pulmonary edema as it was initially on the first day of admission. Reevaluated on 07/16/2016, patient continues to do well, ambulating in the hallway, no cough no wheezing no shortness of breath, possible discharge planning in the next couple of days. Patient denies any shortness of breath today, no chest pain, and I repeated his chest x-ray today showed no evidence of any acute intrathoracic abnormality. Hence from our perspective patient could be considered for discharge planning, and will follow as needed. Objective - Vital Signs Vital signs: Vital Signs Temp 98.5 F 07/16/16 08:00 Pulse 60 07/16/16 08:00 Resp 18 07/16/16 08:00 BP 111/68 07/16/16 08:00 Pulse Ox 96 07/16/16 08:00 Intake & Output 07/15/16 07/16/16 07/16/16 18:59 06:59 18:59 Intake Total 118 Output Total 840 850 200 Balance -722 -850 -200 Weight 91.6 kg 88.8 kg 88.8 kg Intake: Oral 118 Output: Urine 840 850 200 Other: Voiding Method Urinal Urinal Urinal # Voids 1 1 1 # Bowel Movements 1 1 - Exam Physical Exam: Revealed a 60-year-old white male in mild respiratory distress HEENT:[Neck is supple.] [No neck masses.] [No thyromegaly.] [No JVD.] Chest: [Clear bilaterally no crackles or rhonchi or wheezes] Cardiac Exam: [Normal S1 and S2, no S3 gallop, no murmur.] Abdomen: [Soft, nontender, no megaly, no rebound, no guarding, normal bowel sounds.] Extremities: [No clubbing, no edema, no cyanosis.] Neurological Exam: [No focal neurologic deficit.] - Labs CBC & Chem 7: 07/15/16 05:40 07/16/16 05:43 Labs: Abnormal Lab Results - Last 24 Hours (Table) 07/15/16 07/15/16 07/15/16 Range/Units 05:40 05:40 11:40 Retic Count 2.8 H (0.5-2.0) % Potassium (3.5-5.1) mmol/L Chloride 96 L (98-107) mmol/L Carbon Dioxide (22-30) mmol/L BUN 24 H (9-20) mg/dL Glucose 119 H (74-99) mg/dL POC Glucose (mg/dL) 190 H (75-99) mg/dL Iron 29 L (49-181) ug/dL TIBC 251 L (261-462) ug/dL % Saturation 11.6 L (20-50) % 07/15/16 07/15/16 07/16/16 Range/Units 16:40 20:45 05:43 Retic Count (0.5-2.0) % Potassium 3.4 L (3.5-5.1) mmol/L Chloride 94 L (98-107) mmol/L Carbon Dioxide 32 H (22-30) mmol/L BUN 24 H (9-20) mg/dL Glucose 128 H (74-99) mg/dL POC Glucose (mg/dL) 102 H 148 H (75-99) mg/dL Iron (49-181) ug/dL TIBC (261-462) ug/dL % Saturation (20-50) % 07/16/16 Range/Units 06:10 Retic Count (0.5-2.0) % Potassium (3.5-5.1) mmol/L Chloride (98-107) mmol/L Carbon Dioxide (22-30) mmol/L BUN (9-20) mg/dL Glucose (74-99) mg/dL POC Glucose (mg/dL) 127 H (75-99) mg/dL Iron (49-181) ug/dL TIBC (261-462) ug/dL % Saturation (20-50) % Assessment and Plan Plan: [address] elevation myocardial infarction, status post PCI of the LAD 2 severe disease of the RCA 3 acute pulmonary edema, acute congestive heart failure. Secondary to ischemic cardiomyopathy, impaired left ventricular systolic function with estimated ejection fraction 35-30%. 4 remote smoking history 5 status post stenting of RCA on 07/13/2016 6 ventricular tachycardia, initiated on amiodarone, and the plan is for LifeVest prior to discharge. Recommendation: Clinically the patient is doing well, his chest x-ray showed complete clearance of his interstitial edema, we'll sign off for now and see the patient on when necessary basis. Time with Patient: Less than 30
[2016-07-16 11:45] LABS: Glucose,Whole Blood 155 mg/dL (75-99)
--- NOTE | 2016-07-16 12:00 | P.PN ---
Subjective This is a 60-year-old male who plans to establish himself with Dr. Welsh's primary care physician. He has a past medical history of gastroesophageal reflux disease. Patient states that he went for a hike on Monday morning which was shorter than his normal 3-5 miles and he decided to go for a longer hike later in the day. While he was out he developed chest pressure with left arm involvement and feeling woozy. He sat down he took an aspirin and anti-gas medication and his symptoms went away. On Monday the patient had the same symptoms again but much worse. He does have history of stress test about 5 years ago that was normal. He presented by EMS to the hospital and went directly to the Tile Installer and found to have critical disease involving the proximal LAD and severe disease involving the mid RCA and is status post stenting of the proximal LAD. Patient has been diagnosed with acute anterior ST elevated myocardial infarction. He remains in intensive care unit. He is complaining of pain in the right sternal border with deep inspiration and tender to touch. He also has tenderness to the epigastric area. Echocardiogram reveals EF 25-30% with trace mitral regurgitation, trace tricuspid regurgitation. AST 991 and ALT 163. ProBNP 1220. Triglycerides 113 , cholesterol 224, LDL 146 and HDL 55. WBC count at 25. 07/12: Repeat chest x-ray shows stable to minimally improved CHF with pulmonary edema. Dr. Hylton had added Augmentin for possible aspiration. He is currently on Lasix 40 mg IV changed to daily. WBC is 22, AST 358, ALT 113, GFR greater than 60. He has been on high flow oxygen 5 L pulse oxing 94%. Weight is down 2-1 /2 kg. Patient had run of [employer] and started on oral amiodarone. Blood pressure has been on the low side and meds are being adjusted. [facility]. Magnesius level added as patient will be started on Mag oxide which patient states helps him sleep. 07/13: Magnesium level II.2. Total bilirubin 1.7, AST 153 and ALT 79.WBC down to 15.1. Repeat chest x-ray shows correlate for heart failure. Patient returned to cleaning laborer for 2 more stents which was planned. He is in ICU waiting for [facility] bed. Melatonin added for insomnia. 07/14: On 07/13, patient underwent successful stenting of the mid RCA and distal RCA. He is now seen on the selective care unit. He is feeling lousy in general. TSH, free T4, cortisol levels, vitamin B12 levels ordered. Patient may require LifeVest before discharge. patient states that the melatonin did not help him sleep last night and he has been on as much as 60 mg at home without help with insomnia. 07/15: patient denies any chest pain. He is currently on Lasix 40 mg IV every 12 hours. patient gives history that he gives blood once every month as well as platelets every 2 weeks and has been doing this for 30 years. Iron studies have been ordered. 07/16: Patient is feeling a bit better today he continues to be so short of breath with exertion, he has no chest pain or pressure, he has no abdominal pain , no nausea, vomiting, he had a good bowel movement however he is feeling a bit fatigued and tired and he would be kept in the hospital for another 24 hours. Objective - Vital Signs Vital signs: Vital Signs Temp 97.3 F L 07/16/16 04:00 Pulse 69 07/16/16 04:00 Resp 18 07/16/16 04:00 BP 102/59 07/16/16 04:00 Pulse Ox 94 L 07/16/16 04:00 Intake & Output 07/15/16 07/16/16 07/16/16 18:59 06:59 18:59 Intake Total 118 Output Total 840 850 Balance -722 -850 Weight 91.6 kg 88.8 kg Intake: Oral 118 Output: Urine 840 850 Other: Voiding Method Urinal Urinal # Voids 1 1 # Bowel Movements 1 - Constitutional General appearance: Present: average body habitus, no acute distress - EENT Eyes: Present: EOMI, PERRLA, normal appearance. Absent: ptosis, scleral icterus ENT: Present: normal oropharynx. Absent: thrush Ears: bilateral: normal - Neck Neck: Present: normal ROM. Absent: lymphadenopathy, rigidity, stridor, thyromegaly Carotids: bilateral: upstroke normal Thyroid: bilateral: normal size - Respiratory Respiratory: bilateral: diminished, negative: dullness, rales, rhonchi, wheezing , prolonged expiration, prolonged inspiration - Cardiovascular Rhythm: regular Heart sounds: normal: S1, S2 Abnormal Heart Sounds: Present: systolic murmur - Gastrointestinal General gastrointestinal: Present: normal bowel sounds, soft. Absent: splenomegaly, tenderness, umbilical hernia - Integumentary Integumentary: Present: normal, normal turgor - Neurologic Neurologic: Present: CNII-XII intact. Absent: focal deficits - Musculoskeletal Musculoskeletal: Present: gait normal, strength equal bilaterally - Psychiatric Psychiatric: Present: A&O x's 3, appropriate affect, intact judgment & insight - Labs CBC & Chem 7: 07/15/16 05:40 07/16/16 05:43 Labs: Abnormal Lab Results - Last 24 Hours (Table) 07/15/16 07/15/16 07/15/16 Range/Units 05:40 05:40 11:40 Retic Count 2.8 H (0.5-2.0) % Potassium (3.5-5.1) mmol/L Chloride 96 L (98-107) mmol/L Carbon Dioxide (22-30) mmol/L BUN 24 H (9-20) mg/dL Glucose 119 H (74-99) mg/dL POC Glucose (mg/dL) 190 H (75-99) mg/dL Iron 29 L (49-181) ug/dL TIBC 251 L (261-462) ug/dL % Saturation 11.6 L (20-50) % 07/15/16 07/15/16 07/16/16 Range/Units 16:40 20:45 05:43 Retic Count (0.5-2.0) % Potassium 3.4 L (3.5-5.1) mmol/L Chloride 94 L (98-107) mmol/L Carbon Dioxide 32 H (22-30) mmol/L BUN 24 H (9-20) mg/dL Glucose 128 H (74-99) mg/dL POC Glucose (mg/dL) 102 H 148 H (75-99) mg/dL Iron (49-181) ug/dL TIBC (261-462) ug/dL % Saturation (20-50) % 07/16/16 Range/Units 06:10 Retic Count (0.5-2.0) % Potassium (3.5-5.1) mmol/L Chloride (98-107) mmol/L Carbon Dioxide (22-30) mmol/L BUN (9-20) mg/dL Glucose (74-99) mg/dL POC Glucose (mg/dL) 127 H (75-99) mg/dL Iron (49-181) ug/dL TIBC (261-462) ug/dL % Saturation (20-50) % Assessment and Plan Plan: Assessment and Plan Plan: 1.Acute anterior ST elevation myocardial infarction status post left heart catheterization and successful stenting of the proximal LAD using 3.25 x 33 mm Xience MARIE with a good angiographic results. Continue aspirin, lipitor, lopressor, lisinopril, Effient nitroglycerine prn. Returned to cleaning laborer for 2 more stents RCA on 07/13. 2. GERD and gastritis. Protonix, and maalox. 3. Elevated blood sugar without history of diabetes. Humalog scale as needed. 4. Hyperlipidemia. Lipitor. 5. Acute pulomonary edema and acute systolic heart failure with ischemic cardiomyopathy. Lasix IV. 6. Elevated liver function tests due to hypoperfusion, improved. 7. Home tomorrow morning.
--- NOTE | 2016-07-16 15:32 | P.PN ---
Subjective Principal diagnosis: STEMI This a 60-year-old gentleman who presented to the hospital with acute anterior wall ST elevation myocardial infarction. He underwent successful stenting of the proximal LAD and subsequent stenting of the RCA. He developed some progressive worsening shortness of breath and chest x-ray showed vascular congestion and alveolar edema and he was started on IV Lasix. He has been diuresing well. Upon examination this morning, patient is breathing well. Denies any complaints of shortness of breath with activity or at rest, no orthopnea and no PND. He's been up ambulating without difficulties. Objective - Vital Signs Vital signs: Vital Signs Temp 98.0 F 07/16/16 12:00 Pulse 60 07/16/16 12:00 Resp 18 07/16/16 12:00 BP 116/70 07/16/16 12:00 Pulse Ox 95 07/16/16 12:00 Intake & Output 07/15/16 07/16/16 07/16/16 18:59 06:59 18:59 Intake Total 118 Output Total 270 427 5473 Balance -722 -850 -1200 Weight 91.6 kg 88.8 kg 88.8 kg Intake: Oral 118 Output: Urine 910 252 3413 Other: Voiding Method Urinal Urinal Urinal # Voids 1 1 4 # Bowel Movements 1 1 - Exam PHYSICAL EXAMINATION: HEENT: Head is atraumatic, normocephalic. Pupils equal, round. Neck is supple. There is no elevated jugular venous pressure. HEART EXAMINATION: Heart sounds regular, S1 and S2 normal. No murmur or gallop heard. CHEST EXAMINATION: Lungs are clear to auscultation and precussion. No chest wall tenderness is noted on palpation or with deep breathing. ABDOMEN: Soft, nontender. Bowel sounds are heard. No organomegaly noted. EXTREMITIES: 2+ peripheral pulses with no evidence of peripheral edema and no calf tenderness noted. Right crank puncture site soft, no hematoma or ecchymosis. Right radial puncture site soft without hematoma.. NEUROLOGIC patient is awake, alert and oriented x3. . - Labs CBC & Chem 7: 07/15/16 05:40 07/16/16 05:43 Labs: Abnormal Lab Results - Last 24 Hours (Table) 07/15/16 07/15/16 07/16/16 Range/Units 16:40 20:45 05:43 Potassium 3.4 L (3.5-5.1) mmol/L Chloride 94 L (98-107) mmol/L Carbon Dioxide 32 H (22-30) mmol/L BUN 24 H (9-20) mg/dL Glucose 128 H (74-99) mg/dL POC Glucose (mg/dL) 102 H 148 H (75-99) mg/dL 07/16/16 07/16/16 Range/Units 06:10 11:44 Potassium (3.5-5.1) mmol/L Chloride (98-107) mmol/L Carbon Dioxide (22-30) mmol/L BUN (9-20) mg/dL Glucose (74-99) mg/dL POC Glucose (mg/dL) 127 H 155 H (75-99) mg/dL Assessment and Plan Plan: Assessment and plan #1 ST elevation myocardial infarction #2 status post stent to the LAD and RCA #3 ischemic cardiomyopathy #4 hyperlipidemia Cardiology's perspective, we will change amiodarone to 200 mg by mouth twice a day. Stop IV Lasix and start the patient on 20 mg by mouth daily. Anticipate the patient will be discharged in the next 24-48 hours and will need LifeVest prior to discharge. Further recommendations to follow ACTIVE DIRECTORY ADMINISTRATOR note has been reviewed, I agree with a documented findings and plan of care. Patient was seen and examined.
[2016-07-16 16:48] LABS: Glucose,Whole Blood 119 mg/dL (75-99)
[2016-07-16 21:07] LABS: Glucose,Whole Blood 162 mg/dL (75-99)
[2016-07-16] MEDS: ATORVASTATIN 80 MG TAB PO SCH (22:18)
[2016-07-16] MEDS: MELATONIN 3 MG TABLET PO SCH (22:18)
[2016-07-16] MEDS: MAGNESIUM OXIDE 400 MG TAB PO SCH (22:22)
[2016-07-16] MEDS: HYDROmorphone 1 MG/ML 1 ML SYRINGE IVP PRN (22:22)
[2016-07-17] MEDS: HYDROmorphone 1 MG/ML 1 ML SYRINGE IVP PRN (02:12)
[2016-07-17 06:16] LABS: Glucose,Whole Blood 106 mg/dL (75-99)
[2016-07-17] MEDS: INSULIN LISPRO (humaLOG) 300 UNIT/3 ML VIAL SQ SCH ×4 (06:18→22:01)
[2016-07-17] MEDS: PANTOPRAZOLE 40 MG TABLET PO SCH (06:19)
[2016-07-17 06:53] LABS: Anion Gap 11 mmol/L; Blood Urea Nitrogen 24 mg/dL (9-20); Calcium 8.9 mg/dL (8.4-10.2); Carbon Dioxide 33 mmol/L (22-30); Chloride 94 mmol/L (98-107); Glucose 116 mg/dL (74-99); Non-African American GFR(MDRD) >60 (>60 ml/min/1.73 sqM); Sodium 138 mmol/L (137-145)
[2016-07-17 07:00] LABS: Potassium 4.3 mmol/L (3.5-5.1)
[2016-07-17] MEDS: ASPIRIN 81 MG CHEW PO SCH (09:28)
[2016-07-17] MEDS: AMIODARONE 200 MG TAB PO SCH ×2 (09:28→22:01)
[2016-07-17] MEDS: METOPROLOL TARTRATE 25 MG TAB PO SCH ×2 (09:28→22:00)
[2016-07-17] MEDS: AMOXIC-POT CLAV 875-125MG 1 EACH TAB PO SCH ×2 (09:28→22:01)
[2016-07-17] MEDS: FUROSEMIDE 20 MG TAB PO SCH (09:29)
[2016-07-17] MEDS: PRASUGREL 10 MG TAB PO SCH (09:29)
[2016-07-17] MEDS: LISINOPRIL 2.5 MG TAB PO SCH (11:25)
[2016-07-17 11:51] LABS: Glucose,Whole Blood 130 mg/dL (75-99)
--- NOTE | 2016-07-17 14:11 | P.DS ---
Providers Date of admission: 07/10/16 14:10 Expected date of discharge: 07/17/16 Attending physician: Vianca Carpenter Consults: 07/10/16 15:00 Consult Physician Routine Consulting Provider: Pina Michael Consult Reason/Comments: Post Interventional patient Do you want consulting provider notified?: Already Contacted 07/11/16 06:26 Consult Physician Routine Consulting Provider: Jono Welsh Consult Reason/Comments: medical management Do you want consulting provider notified?: Already Contacted 07/11/16 07:49 Consult Physician Routine Consulting Provider: Tony Hylton Consult Reason/Comments: icu management Do you want consulting provider notified?: Yes 07/13/16 10:44 Consult Physician Routine Consulting Provider: Pina Michael Consult Reason/Comments: Post Interventional patient Do you want consulting provider notified?: Already Contacted Primary care physician: Physician Nonsta Hospital Course: This is a 60-year-old male who plans to establish himself with Dr. Welsh's primary care physician. He has a past medical history of gastroesophageal reflux disease. Patient states that he went for a hike on Monday morning which was shorter than his normal 3-5 miles and he decided to go for a longer hike later in the day. While he was out he developed chest pressure with left arm involvement and feeling woozy. He sat down he took an aspirin and anti-gas medication and his symptoms went away. On Monday the patient had the same symptoms again but much worse. He does have history of stress test about 5 years ago that was normal. He presented by EMS to the hospital and went directly to the Family Law Legal Assistant and found to have critical disease involving the proximal LAD and severe disease involving the mid RCA and is status post stenting of the proximal LAD. Patient has been diagnosed with acute anterior ST elevated myocardial infarction. He remains in intensive care unit. He is complaining of pain in the right sternal border with deep inspiration and tender to touch. He also has tenderness to the epigastric area. Echocardiogram reveals EF 25-30% with trace mitral regurgitation, trace tricuspid regurgitation. AST 991 and ALT 163. ProBNP 1220. Triglycerides 113 , cholesterol 224, LDL 146 and HDL 55. WBC count at 25. 3/21: Repeat chest x-ray shows stable to minimally improved CHF with pulmonary edema. Dr. Hylton had added Augmentin for possible aspiration. He is currently on Lasix 40 mg IV changed to daily. WBC is 22, AST 358, ALT 113, GFR greater than 60. He has been on high flow oxygen 5 L pulse oxing 94%. Weight is down 2-1 /2 kg. Patient had run of [employer] and started on oral amiodarone. Blood pressure has been on the low side and meds are being adjusted. [facility]. Magnesius level added as patient will be started on Mag oxide which patient states helps him sleep. 07/13: Magnesium level II.2. Total bilirubin 1.7, AST 153 and ALT 79.WBC down to 15.1. Repeat chest x-ray shows correlate for heart failure. Patient returned to aquatic laborer for 2 more stents which was planned. He is in ICU waiting for [facility] bed. Melatonin added for insomnia. 07/14: On 07/13, patient underwent successful stenting of the mid RCA and distal RCA. He is now seen on the selective care unit. He is feeling lousy in general. TSH, free T4, cortisol levels, vitamin B12 levels ordered. Patient may require LifeVest before discharge. patient states that the melatonin did not help him sleep last night and he has been on as much as 60 mg at home without help with insomnia. 07/15: patient denies any chest pain. He is currently on Lasix 40 mg IV every 12 hours. patient gives history that he gives blood once every month as well as platelets every 2 weeks and has been doing this for 30 years. Iron studies have been ordered. 07/16: Patient is feeling a bit better today he continues to be so short of breath with exertion, he has no chest pain or pressure, he has no abdominal pain , no nausea, vomiting, he had a good bowel movement however he is feeling a bit fatigued and tired and he would be kept in the hospital for another 24 hours. 07/17/2016: Patient sitting a lot better today he denies any chest pain, shortness breath, we are waiting for the LifeVest before the patient can go home. Discharge diagnoses: 1. Acute anterior ST elevation myocardial infarction status post left heart catheterization and successful stenting of the LAD,RCA. 2. GERD and gastritis. 3. Elevated blood sugar without history of Diabetes. 4. Hyperlipidemia. 5. Acute pulomonary edema and acute systolic heart failure with ischemic cardiomayopathy. 6. Elevated liver function tests due to hypoperfusion. Patient Condition at Discharge: Serious Plan - Discharge Summary New Discharge Prescriptions: Amiodarone [Cordarone] 200 mg PO BID #60 tab Amoxic-Pot Clav 875-125Mg [Augmentin 875-125] 1 each PO Q12HR #20 tab Aspirin 81 mg PO DAILY #30 chew Atorvastatin [Lipitor] 80 mg PO HS #30 tab Furosemide [Lasix] 20 mg PO DAILY #30 tab Lisinopril [Zestril] 2.5 mg PO DAILY@1200 #30 tab Magnesium Oxide [Mag-Ox] 400 mg PO HS #30 tab Metoprolol Tartrate [Lopressor] 25 mg PO BID #60 tab Nitroglycerin Sl Tabs [Nitrostat] 0.4 mg SUBLINGUAL Q5M PRN #50 tab PRN Reason: Chest Pain Pantoprazole [Protonix] 40 mg PO AC-BRKFST #30 tablet. Prasugrel [Effient] 10 mg PO DAILY #30 tab Discharge Medication List Amiodarone [Cordarone] 200 mg PO BID #60 tab 07/17/16 [Rx] Amoxic-Pot Clav 875-125Mg [Augmentin 875-125] 1 each PO Q12HR #20 tab 07/17/16 [ Rx] Aspirin 81 mg PO DAILY #30 chew 07/17/16 [Rx] Atorvastatin [Lipitor] 80 mg PO HS #30 tab 07/17/16 [Rx] Furosemide [Lasix] 20 mg PO DAILY #30 tab 07/17/16 [Rx] Lisinopril [Zestril] 2.5 mg PO DAILY@1200 #30 tab 07/17/16 [Rx] Magnesium Oxide [Mag-Ox] 400 mg PO HS #30 tab 07/17/16 [Rx] Metoprolol Tartrate [Lopressor] 25 mg PO BID #60 tab 07/17/16 [Rx] Nitroglycerin Sl Tabs [Nitrostat] 0.4 mg SUBLINGUAL Q5M PRN #50 tab 07/17/16 [Rx ] Pantoprazole [Protonix] 40 mg PO AC-BRKFST #30 tablet. 07/17/16 [Rx] Prasugrel [Effient] 10 mg PO DAILY #30 tab 07/17/16 [Rx] Follow up Appointment(s)/Referral(s): Jono Welsh DO [STAFF PHYSICIAN] - 1 Week Discharge Disposition: HOME SELF-CARE
[2016-07-17 16:28] LABS: Glucose,Whole Blood 134 mg/dL (75-99)
[2016-07-17 21:05] LABS: Glucose,Whole Blood 131 mg/dL (75-99)
[2016-07-17] MEDS: MELATONIN 3 MG TABLET PO SCH (22:01)
[2016-07-17] MEDS: ATORVASTATIN 80 MG TAB PO SCH (22:01)
[2016-07-17] MEDS: MAGNESIUM OXIDE 400 MG TAB PO SCH (22:04)
[2016-07-18] MEDS: INSULIN LISPRO (humaLOG) 300 UNIT/3 ML VIAL SQ SCH ×2 (06:19→11:53)
[2016-07-18] MEDS: PANTOPRAZOLE 40 MG TABLET PO SCH (06:20)
[2016-07-18 06:53] LABS: Glucose,Whole Blood 111 mg/dL (75-99)
[2016-07-18] MEDS: AMIODARONE 200 MG TAB PO SCH (07:53)
[2016-07-18] MEDS: AMOXIC-POT CLAV 875-125MG 1 EACH TAB PO SCH (07:53)
[2016-07-18] MEDS: ASPIRIN 81 MG CHEW PO SCH ×2 (07:54→07:55)
[2016-07-18] MEDS: FUROSEMIDE 20 MG TAB PO SCH (07:54)
[2016-07-18] MEDS: PRASUGREL 10 MG TAB PO SCH (07:54)
[2016-07-18] MEDS: METOPROLOL TARTRATE 25 MG TAB PO SCH (07:54)
--- NOTE | 2016-07-18 10:03 | P.PN ---
Subjective Principal diagnosis: Anterior STEMI This is a 60-year-old gentleman who presented to the hospital with an acute anterior wall ST elevation myocardial infarction. He underwent successful stenting of the proximal LAD, subsequent to that patient also underwent angioplasty and stenting of the right coronary artery yesterday by Dr. Ocampo. Patient was seen and examined this morning, denies any chest pain or difficulty in breathing. Blood pressure 104/60, heart rate in the 70s. Patient will be discharged home today, with a LifeVest. Objective - Vital Signs Vital signs: Vital Signs Temp 97.5 F L 07/18/16 04:00 Pulse 70 07/18/16 04:00 Resp 18 07/18/16 04:00 BP 102/66 07/18/16 04:00 Pulse Ox 95 07/18/16 04:00 Intake & Output 07/17/16 07/18/16 07/18/16 18:59 06:59 18:59 Intake Total 1120 180 Output Total 250 300 Balance 870 -300 180 Weight 88.9 kg 88.3 kg Intake: Oral 1120 180 Output: Urine 250 300 Other: Voiding Method Urinal Urinal # Voids 3 1 # Bowel Movements 1 - Exam PHYSICAL EXAMINATION: HEENT: Head is atraumatic, normocephalic. Pupils equal, round. Neck is supple. There is elevated jugular venous pressure. HEART EXAMINATION: Heart S1, S2 normal. No murmur or gallop heard. CHEST EXAMINATION: Lungs reveal diminished air entry to bilateral bases with fine rales to the bases. ABDOMEN: Soft, nontender. Bowel sounds are heard. No organomegaly noted. EXTREMITIES: 2+ peripheral pulses with no evidence of peripheral edema and no calf tenderness noted. NEUROLOGIC patient is awake, alert and oriented -3. . - Labs CBC & Chem 7: 07/15/16 05:40 07/17/16 05:34 Labs: Abnormal Lab Results - Last 24 Hours (Table) 07/17/16 07/17/16 07/17/16 Range/Units 11:49 16:26 20:54 POC Glucose (mg/dL) 130 H 134 H 131 H (75-99) mg/dL 07/18/16 Range/Units 06:18 POC Glucose (mg/dL) 111 H (75-99) mg/dL Assessment and Plan (1) ST elevation (STEMI) myocardial infarction involving left anterior descending coronary artery Status: Acute (2) Presence of stent in LAD coronary artery Status: Acute (3) S/P right coronary artery (RCA) stent placement Status: Acute (4) Hyperlipemia Status: Acute Plan: We will continue amiodarone 200 mg one tablet by mouth twice a day, Ecotrin 81 mg daily, Lipitor 80 mg daily, Lasix 20 mg daily, lisinopril 2-1/2 mg daily, metoprolol tartrate 25 mg one tablet by mouth twice a day, Effient 10 mg daily, and sublingual nitroglycerin as needed for chest pain. A follow-up appointment will be made with Dr. Ocampo in the office in one week. Patient will also go home with a LifeVest in place. DNP note has been reviewed, I agree with a documented findings and plan of care. Patient was seen and examined.
[2016-07-18 11:20] LABS: Glucose,Whole Blood 126 mg/dL (75-99)
[2016-07-18] MEDS: LISINOPRIL 2.5 MG TAB PO SCH (11:53)
[2016-07-18 11:56] VITALS: BP 87/55; PULSE 61; RESP 18; TEMP 99.1
--- NOTE | 2016-07-18 14:42 | P.PN ---
Subjective This is a 60-year-old male who plans to establish himself with Dr. Welsh's primary care physician. He has a past medical history of gastroesophageal reflux disease. Patient states that he went for a hike on Monday morning which was shorter than his normal 3-5 miles and he decided to go for a longer hike later in the day. While he was out he developed chest pressure with left arm involvement and feeling woozy. He sat down he took an aspirin and anti-gas medication and his symptoms went away. On Monday the patient had the same symptoms again but much worse. He does have history of stress test about 5 years ago that was normal. He presented by EMS to the hospital and went directly to the [facility] and found to have critical disease involving the proximal LAD and severe disease involving the mid RCA and is status post stenting of the proximal LAD. Patient has been diagnosed with acute anterior ST elevated myocardial infarction. He remains in intensive care unit. He is complaining of pain in the right sternal border with deep inspiration and tender to touch. He also has tenderness to the epigastric area. Echocardiogram reveals EF 25-30% with trace mitral regurgitation, trace tricuspid regurgitation. AST 991 and ALT 163. ProBNP 1220. Triglycerides 113 , cholesterol 224, LDL 146 and HDL 55. WBC count at 25. 07/12: Repeat chest x-ray shows stable to minimally improved CHF with pulmonary edema. Dr. Hylton had added Augmentin for possible aspiration. He is currently on Lasix 40 mg IV changed to daily. WBC is 22, AST 358, ALT 113, GFR greater than 60. He has been on high flow oxygen 5 L pulse oxing 94%. Weight is down 2-1 /2 kg. Patient had run of Digital Message Display and started on oral amiodarone. Blood pressure has been on the low side and meds are being adjusted. Transfer to [facility]. Magnesius level added as patient will be started on Mag oxide which patient states helps him sleep. 07/13: Magnesium level II.2. Total bilirubin 1.7, AST 153 and ALT 79.WBC down to 15.1. Repeat chest x-ray shows correlate for heart failure. Patient returned to bundle tier and labeler for 2 more stents which was planned. He is in ICU waiting for [facility] bed. Melatonin added for insomnia. 07/14: On 07/13, patient underwent successful stenting of the mid RCA and distal RCA. He is now seen on the [facility] unit. He is feeling lousy in general. TSH, free T4, cortisol levels, vitamin B12 levels ordered. Patient may require LifeVest before discharge. patient states that the melatonin did not help him sleep last night and he has been on as much as 60 mg at home without help with insomnia. 07/15: patient denies any chest pain. He is currently on Lasix 40 mg IV every 12 hours. patient gives history that he gives blood once every month as well as platelets every 2 weeks and has been doing this for 30 years. Iron studies have been ordered. 07/18: patient is being prepared for discharge home today. He is waiting for LifeVest to be delivered. Patient denies any chest pain or shortness of breath. Objective - Vital Signs Vital signs: Vital Signs Temp 99.1 F 07/18/16 11:56 Pulse 61 07/18/16 11:56 Resp 18 07/18/16 12:00 BP 87/55 07/18/16 11:56 Pulse Ox 98 07/18/16 11:56 Intake & Output 07/17/16 07/18/16 07/18/16 18:59 06:59 18:59 Intake Total 1120 180 Output Total 250 300 Balance 870 -300 180 Weight 88.9 kg 88.3 kg Intake: Oral 1120 180 Output: Urine 250 300 Other: Voiding Method Urinal Urinal # Voids 3 1 # Bowel Movements 1 - Exam Gen: This is a 60-year-old male. He is sitting in the ICU bed and appears to be in no acute distress. Patient does appear to be anxious. HEENT: Head is atraumatic, normocephalic. Pupils equal, round. Sclerae is anicteric. NECK: Supple. No JVD. No lymphadenopathy. No thyromegaly. LUNGS: bilateral rhonchi. No intercostal retractions. HEART: Regular rate and rhythm. No murmur. ABDOMEN: Soft. Bowel sounds are present. No masses. No tenderness. EXTREMITIES: No pedal edema. No calf tenderness. NEUROLOGICAL: Patient is awake, alert and oriented x3. Cranial nerves 2 through 12 are grossly intact. - Labs CBC & Chem 7: 07/15/16 05:40 07/17/16 05:34 Labs: Abnormal Lab Results - Last 24 Hours (Table) 07/17/16 07/17/16 07/18/16 Range/Units 16:26 20:54 06:18 POC Glucose (mg/dL) 134 H 131 H 111 H (75-99) mg/dL 07/18/16 Range/Units 11:18 POC Glucose (mg/dL) 126 H (75-99) mg/dL Assessment and Plan Plan: 1.Acute anterior ST elevation myocardial infarction status post left heart catheterization and successful stenting of the proximal LAD using 3.25 x 33 mm Xience MARIE with a good angiographic results. Continue aspirin, lipitor, lopressor, lisinopril, Effient nitroglycerine prn. Returned to bundle tier and labeler for 2 more stents RCA on 07/13. 2. GERD and gastritis. Protonix, and maalox. 3. Elevated blood sugar without history of diabetes. Humalog scale as needed. 4. Hyperlipidemia. Lipitor. 5. Acute pulomonary edema and acute systolic heart failure with ischemic cardiomyopathy. Lasix IV. 6. Elevated liver function tests due to hypoperfusion, improved. Discharge plan: return home Impression and plan of care have been directed as dictated by the signing physician. Latasha Lozada nurse practitioner acting as scribe for signing physician. Time with Patient: Greater than 30
== END 2016-07-18 14:38 | disposition home or self-care (01) | DRG 246 ==
LOC: EC 13:55 → EDSTATUS 14:08 → 6ICU 14:10 → 6SEL 07-13 21:47
PROVIDERS: ADMIT Internal Medicine Interventional Cardiology; ATTEND Family Medicine
PROC: 4A023N7 Measurement of Cardiac Sampling and Pressure, Left Heart, Percutaneous Approach (ICD-10-PCS; 2016-07-10)
PROC: B2111ZZ Fluoroscopy of Multiple Coronary Arteries using Low Osmolar Contrast (ICD-10-PCS; 2016-07-10)
PROC: B2151ZZ Fluoroscopy of Left Heart using Low Osmolar Contrast (ICD-10-PCS; 2016-07-10)
PROC: 027034Z Dilation of Coronary Artery, One Artery with Drug-eluting Intraluminal Device, Percutaneous Approach (ICD-10-PCS; 2016-07-10 13:58)
PROC: B2101ZZ Fluoroscopy of Single Coronary Artery using Low Osmolar Contrast (ICD-10-PCS; 2016-07-13)
PROC: 027035Z Dilation of Coronary Artery, One Artery with Two Drug-eluting Intraluminal Devices, Percutaneous Approach (ICD-10-PCS; principal; 2016-07-13 09:30)
DX: I21.09 ST elevation (STEMI) myocardial infarction involving other coronary artery of anterior wall (principal); I50.21 Acute systolic (congestive) heart failure; I47.2 Ventricular tachycardia; I50.1 Left ventricular failure, unspecified; I25.5 Ischemic cardiomyopathy; I25.10 Atherosclerotic heart disease of native coronary artery without angina pectoris; R73.09 Other abnormal glucose; K21.9 Gastro-esophageal reflux disease without esophagitis; E78.5 Hyperlipidemia, unspecified; K29.70 Gastritis, unspecified, without bleeding; G47.00 Insomnia, unspecified; R05 Cough; F41.9 Anxiety disorder, unspecified; R53.83 Other fatigue; R74.8 Abnormal levels of other serum enzymes; Z82.49 Family history of ischemic heart disease and other diseases of the circulatory system; Z82.3 Family history of stroke; Z87.891 Personal history of nicotine dependence; Z71.3 Dietary counseling and surveillance; Z80.8 Family history of malignant neoplasm of other organs or systems; Z82.0 Family history of epilepsy and other diseases of the nervous system
CPT/HCPCS: 71010; 80048; 80053; 80061; 82533; 82607; 82728; 83036; 83540; 83550; 83735; 83880; 84100; 84132; 84439; 84443; 84484; 85025; 85045; 85379; 85610; 85730; 93005; 93306; 94760

== ENCOUNTER → 2017-05-10 | Outpatient (CLI) | payer OTHER ==
[2017-05-10 12:29] LABS: Basophils # (A) 0.1 k/uL (0-0.2); Basophils % (A) 1 %; Eosinophils # (A) 0.2 k/uL (0-0.7); Eosinophils % (A) 3 %; HCT 46.3 % (39.0-53.0); HGB 14.4 gm/dL (13.0-17.5); Lymphocytes # (A) 1.2 k/uL (1.0-4.8); Lymphocytes % (A) 15 %; MCH 28.3 pg (25.0-35.0); MCHC 31.2 g/dL (31.0-37.0); MCV 90.6 fL (80.0-100.0); Mean Platelet Volume 9.5; Monocytes # (A) 0.3 k/uL (0-1.0); Monocytes % (A) 4 %; Neutrophils # (A) 5.9 k/uL (1.3-7.7); Neutrophils % (A) 76 %; Platelet Count 156 k/uL (150-450); RBC 5.11 m/uL (4.30-5.90); RDW 14.6 % (11.5-15.5); WBC 7.8 k/uL (3.8-10.6)
[2017-05-10 12:47] LABS: ALT 66 U/L (21-72); AST 38 U/L (17-59); Alkaline Phosphatase 93 U/L (38-126); Anion Gap 8 mmol/L; Blood Urea Nitrogen 23 mg/dL (9-20); Calcium 9.4 mg/dL (8.4-10.2); Carbon Dioxide 29 mmol/L (22-30); Chloride 103 mmol/L (98-107); Cholesterol 159 mg/dL (<200); Glucose 107 mg/dL (74-99); HDL Cholesterol 50 mg/dL (40-60); LDL Cholesterol,Calculated 95 mg/dL (0-99); Sodium 140 mmol/L (137-145); Total Bilirubin 1.9 mg/dL (0.2-1.3); Total Protein 6.5 g/dL (6.3-8.2); Triglycerides 69 mg/dL (<150)
[2017-05-10 13:16] LABS: PSA Annual Screen 4.34 ng/mL (0.00-4.00)
[2017-05-10 15:50] LABS: Alpha Fetoprotein, Tumor Mkr 3.3 ng/mL (0.0-7.9)
[2017-05-10 18:00] LABS: HIV AB P24 Non-Reactive (Non-Reactive); HIV P24 AG Non-Reactive (Non-Reactive)
[2017-05-11 06:32] LABS: Herpes simplex I and/or II IgM 0.39 INDEX (<=0.90); Herpes simplex IgG I Ab 0.11 (< or = 0.90); Herpes simplex IgG II Ab 0.07 (< or = 0.90)
== END | disposition home or self-care (01) ==
LOC: LABWHC1 11:38
PROVIDERS: ATTEND Family Medicine
DX: I25.10 Atherosclerotic heart disease of native coronary artery without angina pectoris (principal); Z12.5 Encounter for screening for malignant neoplasm of prostate; Z20.2 Contact with and (suspected) exposure to infections with a predominantly sexual mode of transmission; Z20.828 Contact with and (suspected) exposure to other viral communicable diseases; Z20.6 Contact with and (suspected) exposure to human immunodeficiency virus [HIV]
CPT/HCPCS: 80061; 80053; 86696; 86694; 86695; 85025; 84702; 82105; 86780; 87390; 83036; 36415; G0103

== ENCOUNTER → 2017-05-11 | Outpatient (CLI) | payer OTHER ==
--- NOTE | 2017-05-11 09:25 | US ---
EXAMINATION TYPE: US scrotum with doppler. DATE OF EXAM: 05/11/2017 COMPARISON: NONE CLINICAL HISTORY: 7-year-old male N50.9 R testicular mass I25.2 Hx UT. Patient states he can feel a lump in his right testicle TECHNIQUE: Grayscale and color Doppler Duplex imaging performed of the scrotum. Findings: EXAM MEASUREMENTS: TESTICLES: Right Testicle: 4.8 x 2.7 x 3.2 cm Left Testicle: 4.8 x 2.3 x 2.7 cm Homogeneous echotexture of both testicles without mass or focal lesion. No hyperemia. Satisfactory ar terial and venous flow on both sides. EPIDIDYMIS HEAD: Right Epididymis: 1.3 cm with a small 4 mm epididymal head cyst. Left Epididymis: 1.1 cm. Presence of hydroceles: Yes, small to moderate-sized. Presence of varicoceles: Yes, small on the left IMPRESSION: 1. Small to moderate-sized bilateral hydroceles. Small varicocele on the left. 2. A tiny 4 mm right-sided epididymal head cyst likely incidental. 3. No testicular mass is identified. 4. No sonographic evidence for torsion.
--- NOTE | 2017-05-11 09:49 | ECHOF ---
Referral Reason:N50.9 R testicular mass I25.2 Hx DC MEASUREMENTS -------- HEIGHT: 188.0 cm WEIGHT: 89.8 kg BP: RVIDd: 3.2 cm (< 3.3) IVSd: 0.8 cm (0.6 - 1.1) LVIDd: 5.4 cm (3.9 - 5.3) LVPWd: 1.2 cm (0.6 - 1.1) IVSs: 0.6 cm LVIDs: 5.3 cm LVPWs: 1.4 cm LA Diam: 4.6 cm (2.7 - 3.8) LAESV Index (A-L): 44.82 ml/m Ao Diam: 2.6 cm (2.0 - 3.7) AV Cusp: 1.1 cm (1.5 - 2.6) LA Diam: 5.2 cm (2.7 - 3.8) EPSS: 1.7 cm MV E Dain: 0.79 m/s MV DecT: 90 ms MV A Dain: 0.27 m/s MV E/A Ratio: 2.93 AR PHT: 662 ms RAP: 5.00 mmHg RVSP: 36.66 mmHg MV EF SLOPE: 75.95 mm/s (70 - 150) MV EXCURSION: 1.62 cm (> 18.000) FINDINGS -------- Sinus rhythm. This was a technically good study. The left ventricle is moderately dilated. There is severe global hypokinesis of LV . Overall left ventricular systolic function is severely impaired with, an EF < 20%. The right ventricle is normal in size. LA is severely dilated >40 ml/m2 The right atrial size is normal. There is mild aortic regurgitation. Moderate mitral regurgitation is present. Mild tricuspid regurgitation present. There is mild pulmonary hypertension. Moderate pulmonic regurgitation. The aortic root size is normal. There is a small, generalized pericardial effusion present. CONCLUSIONS -------- 1. Sinus rhythm. 2. This was a technically good study. 3. The left ventricle is moderately dilated. 4. Overall left ventricular systolic function is severely impaired with, an EF < 20%. 5. The right ventricle is normal in size. 6. LA is severely dilated >40 ml/m2 7. The right atrial size is normal. 8. There is mild aortic regurgitation. 9. Moderate mitral regurgitation is present. 10. Mild tricuspid regurgitation present. 11. There is mild pulmonary hypertension. 12. Moderate pulmonic regurgitation. 13. The aortic root size is normal. 14. There is a small, generalized pericardial effusion present. GIFT BASKET PACKER: Marli Adams RDCS
== END | disposition home or self-care (01) ==
LOC: RADECHMAIN 08:13
PROVIDERS: ATTEND Family Medicine
DX: N43.3 Hydrocele, unspecified (principal); I86.1 Scrotal varices; I25.9 Chronic ischemic heart disease, unspecified; I25.2 Old myocardial infarction; N50.9 Disorder of male genital organs, unspecified
CPT/HCPCS: 76870; 93306; 93975

== ENCOUNTER → 2017-06-06 | Outpatient (CLI) | payer OTHER ==
--- NOTE | 2017-06-06 10:29 | XR ---
EXAMINATION TYPE: XR foot limited RT DATE OF EXAM: 06/06/2017 CLINICAL HISTORY: Pain in right foot possible soft tissue foreign body TECHNIQUE: Frontal and lateral images of the right foot are obtained. COMPARISON: None FINDINGS: There is no acute fracture/dislocation evident in the right foot. Flexion in the toes is present. There is unfused apophysis medial proximal navicular bone. There is spur from the medial cun eiform medial aspect. There is moderate superior and inferior calcaneal spurring. There is mild focal soft tissue swelling lateral plantar aspect level of fifth metatarsal head withou t radiodense or metallic foreign body clearly seen. IMPRESSION: As above.
== END | disposition home or self-care (01) ==
LOC: RADXRMAIN 09:48
PROVIDERS: ATTEND Family Medicine
DX: M79.89 Other specified soft tissue disorders (principal); M77.31 Calcaneal spur, right foot

== ENCOUNTER → 2017-07-27 | Outpatient (CLI) | payer OTHER | END | disposition home or self-care (01) | LOC: LABWHC1 12:27 | PROVIDERS: ATTEND Urology | DX: R97.20 Elevated prostate specific antigen [PSA] (principal) | CPT/HCPCS: 36415; 84153 ==

== ENCOUNTER → 2017-08-22 | Outpatient (CLI) | payer OTHER ==
--- NOTE | 2017-08-22 08:04 | US ---
EXAMINATION TYPE: US groin LT DATE OF EXAM: 08/22/2017 COMPARISON: NONE CLINICAL HISTORY: K40.90 LT INGUINAL HERNIA. Patient states that he sometimes feels a fullness left groin that he can manipulate down. Area of pat ient's concern, left groin was scanned with and without valsalva. Scanning of area of concern left groin shows no worrisome solid or cystic mass or abnormal fluid joan ection on images saved. No suspicious fat or bowel containing inguinal hernia is seen on dynamic imag es. There are prominent vessels in the subcutaneous tissue could reflect varicose veins though this i s somewhat atypical location. IMPRESSION: As above
--- NOTE | 2017-08-22 08:07 | US ---
EXAMINATION TYPE: US scrotum with doppler. Grayscale and color Doppler Duplex imaging performed of t michael scrotum. DATE OF EXAM: 08/22/2017 COMPARISON: Prior scrotal ultrasound May 11, 2017 CLINICAL HISTORY: N50.8 PAIN SCROTUM/TESTES. EXAM MEASUREMENTS: TESTICLES: Right Testicle: 4.9 x 2.8 x 3.4 cm Left Testicle: 4.7 x 2.7 x 3.1 cm EPIDIDYMIS HEAD: Right Epididymis: 1.5 x 1.1 cm Left Epididymis: 1.2 x 1.1 cm Doppler performed to assess for testicular vascularity; good bilateral color flow and waveforms are s een. Presence of hydroceles: fluid around bilateral testicles. Presence of varicoceles: not appreciated on this exam small epi head cysts bilaterally. Color images show satisfactory blood flow to both testicles. A comparison color Image is not saved. I t is presumed there is symmetric blood flow visualized during real-time scanning. IMPRESSION: As above, no suspicious increased or diminished blood flow to either testicle identified on today's study.
== END | disposition home or self-care (01) ==
LOC: RADUSWWP 06:53
PROVIDERS: ATTEND Urology
DX: N50.3 Cyst of epididymis (principal); N43.3 Hydrocele, unspecified; N50.82 Scrotal pain
CPT/HCPCS: 76870; 93975

== ENCOUNTER → 2017-11-23 | Outpatient (CLI) | payer OTHER ==
[2017-11-23 12:57] LABS: ALT 44 U/L (21-72); AST 29 U/L (17-59); Alkaline Phosphatase 85 U/L (38-126); Anion Gap 7 mmol/L; Blood Urea Nitrogen 19 mg/dL (9-20); Calcium 9.6 mg/dL (8.4-10.2); Carbon Dioxide 29 mmol/L (22-30); Chloride 102 mmol/L (98-107); Cholesterol 104 mg/dL (<200); HDL Cholesterol 49 mg/dL (40-60); LDL Cholesterol,Calculated 45 mg/dL (0-99); Potassium 4.6 mmol/L (3.5-5.1); Sodium 138 mmol/L (137-145); Total Bilirubin 1.6 mg/dL (0.2-1.3); Total Protein 6.4 g/dL (6.3-8.2); Triglycerides 50 mg/dL (<150)
[2017-11-23 13:12] LABS: Glucose 97 mg/dL (74-99)
== END | disposition home or self-care (01) ==
LOC: LABWHC1 11:44
PROVIDERS: ATTEND Internal Medicine Interventional Cardiology
DX: E78.2 Mixed hyperlipidemia (principal); I25.5 Ischemic cardiomyopathy
CPT/HCPCS: 36415; 80053; 80061; 83880

== ENCOUNTER 2018-02-05 12:08 | Day surgery (SDC) | payer OTHER ==
[2018-01-29 13:19] VITALS: BMI 23.7
[~2018-02-05 12:08] MED LIST: HEPARIN SODIUM,PORCINE 5,000 UNIT/ML 1 ML VIAL SQ ONE; HYDROmorphone 0.5 MG/0.5 ML SYRINGE IVP PRN; LACTATED RINGERS 1,000 ML IV SCH; LIDOCAINE 1% 20 ML VIAL (10MG/ML) FOR IV START INTRADERMA PRN; ONDANSETRON 4 MG/2 ML VIAL IVP ONE; ceFAZolin IN SWFI 2 GM/20 ML SYRINGE IVP ONE
[2018-02-05 13:00] VITALS: RESP 16
[2018-02-05] MEDS ORDERED: SCOPOLAMINE 1.5MG/72HR PATCH TRANSDERM ONE (13:15)
[2018-02-05] MEDS ORDERED: SUCCINYLCHOLINE CHLORIDE 100 MG/5 ML SYR IV ONE (14:32)
[2018-02-05] MEDS ORDERED: PROPOFOL 10 MG/ML 20 ML VIAL IV ONE (14:32)
[2018-02-05] MEDS ORDERED: fentaNYL (PF) 50 MCG/ML 2 ML AMP ONE (14:32)
[2018-02-05] MEDS ORDERED: ROCURONIUM BROMIDE 10 MG/ML 10 ML VIAL IV ONE (14:32)
[2018-02-05] MEDS ORDERED: LABETALOL 5 MG/ML VIAL MDV ONE (14:32)
[2018-02-05] MEDS ORDERED: LIDOCAINE 1% INJ 10MG/ML (20 ML MDV) ONE (14:32)
[2018-02-05] MEDS ORDERED: ePHEDrine SULFATE/0.9% NACL/PF 50 MG/5 ML SYRINGE IV ONE (14:32)
[2018-02-05] MEDS ORDERED: MIDAZOLAM 2 MG/2 ML VIAL ONE (14:32)
[2018-02-05] MEDS ORDERED: HYDROmorphone (PF) 1 MG/ML ONE (14:32)
--- NOTE | 2018-02-05 14:38 | P.GSHP ---
History of Present Illness H&P Date: 02/05/18 Chief Complaint: lt inguinal hernia Patient here today for elective left internal herniorrhaphy. Patient's complaints of increasing pain and bulging in the left groin. He was seen by cardiology who felt that he was acceptable but high risk for surgery. Patient and I discussed the options and given the increased cardiac demands with laparoscopic approach we decided to proceed with an open approach. Past Medical History Past Medical History: Cancer, Hyperlipidemia, Myocardial Infarction (MT) Additional Past Medical History / Comment(s): episode of tachycardia 06/2016, skin cancer Last Myocardial Infarction Date:: 07/10/2016 History of Any Multi-Drug Resistant Organisms: None Reported Past Surgical History: Heart Catheterization With Stent Additional Past Surgical History / Comment(s): skin cancer removed from head, chest, arms and back of rt leg, two cardiac stents Past Anesthesia/Blood Transfusion Reactions: Motion Sickness Date of Last Stent Placement:: 07/10/2016 Past Psychological History: Anxiety, Depression Additional Psychological History / Comment(s): past hx, none currently Smoking Status: Never smoker Past Alcohol Use History: Occasional Additional Past Alcohol Use History / Comment(s): patient denies any tobacco use history. 40 years ago he did use marijuana, cocaine and other illicit drugs but has not done so in many years. He is . He does not have home O2, CPAP, nebulizer. Past Drug Use History: None Reported - Past Family History Mother Family Medical History: No Reported History Additional Family Medical History / Comment(s): . Father Additional Family Medical History / Comment(s): Father is age 83 with no major medical problems. Brother(s) Additional Family Medical History / Comment(s): He has 1 brother that has had CABG in his 40s, hypertension. Sister(s) Additional Family Medical History / Comment(s): He has 1 sister with no major medical problems. Patient does not have any children. Medications and Allergies Home Medications Medication Instructions Recorded Confirmed Type Aspirin 81 mg PO DAILY #30 chew 07/17/16 01/29/18 Rx Atorvastatin [Lipitor] 80 mg PO HS #30 tab 07/17/16 02/05/18 Rx Magnesium Oxide [Mag-Ox] 400 mg PO HS #30 tab 07/17/16 02/05/18 Rx Nitroglycerin Sl Tabs [Nitrostat] 0.4 mg SUBLINGUAL Q5M PRN #50 tab 07/17/1612/09 Rx Furosemide [Lasix] 20 mg PO BID 01/29/18 02/05/18 History Metoprolol Tartrate [Lopressor] 25 mg PO HS 01/29/18 02/05/18 History Sacubitril/Valsartan [Entresto 24 1 each PO BID 01/29/18 02/05/18 History mg-26 mg Tablet] Spironolactone [Aldactone] 25 mg PO DAILY 01/29/18 02/05/18 History Allergies Allergy/AdvReac Type Severity Reaction Status Date / Time morphine AdvReac Hallucinati Verified 02/05/18 12:55 ons Surgical - Exam Vital Signs Temp Pulse Resp BP Pulse Ox 97.3 F L 85 16 109/70 99 02/05/18 12:59 02/05/18 12:59 02/05/18 12:59 02/05/18 12:59 02/05/18 12:59 Physical exam: General: Well-developed, well-nourished HEENT: Normocephalic, sclerae nonicteric Abdomen: Nontender, nondistended, reducible left inguinal hernia Extremities: No edema Neuro: Alert and oriented Assessment and Plan (1) Left inguinal hernia Narrative/Plan: Will proceed with left inguinal herniorrhaphy with mesh. Risks of bleeding, infection, recurrence, bladder and bowel injury, numbness, nerve injury were discussed with the patient. The patient understands and wishes to proceed. Current Visit: Yes Status: Acute Code(s): K40.90 - UNIL INGUINAL HERNIA, W/ O OBST OR GANGR, NOT SPCF RECUR SNOMED Code(s): 392518817
[2018-02-05] MEDS ORDERED: BUPIVACAIN-EPI 0.25%-1:200,000 30 ML VIAL SQ ONE ×2 (15:12)
[2018-02-05] MEDS ORDERED: LACTATED RINGERS 1,000 ML IV ONE (15:30)
[2018-02-05] MEDS ORDERED: HYDROcodone/APAP 5-325MG 1 EACH TAB PO PRN (16:20)
[2018-02-05] MEDS ORDERED: NALOXONE 0.4 MG/ML 1 ML VIAL IV PRN (16:20)
[2018-02-05 16:22] VITALS: TEMP 97.8
--- NOTE | 2018-02-05 16:29 | P.OP ---
Date of Procedure: 02/05/18 Procedure(s) Performed: PREOPERATIVE DIAGNOSIS: Left inguinal hernia POSTOPERATIVE DIAGNOSIS: Same PROCEDURE: Left indirect inguinal hernia repair with mesh SURGEON: Mario EBL: Minimal ANESTHESIA: General COMPLICATIONS: None OPERATIVE PROCEDURE: Patient was placed in the operating table in the supine position and placed under general anesthesia. An oblique incision was made in the left groin. Dissection down through the subcutaneous tissues took place using electrocautery. The external oblique fascia was incised using a scalpel. This opening was lengthened using the Metzenbaum scissors. The spermatic cord was encircled with a Franklin drain. The spermatic cord structures were identified and preserved. Careful dissection revealed an indirect hernia sac. This was carefully dissected back to the internal inguinal ring where it was ligated using 2 separate 0 silk stick tie sutures. A 3" x 6" Prolene mesh was cut to fit on the exposed fascia. This was sutured to the pubic tubercle the folding edge of the inguinal ligament and the conjoined tendon using interrupted 2-0 Nurolon sutures. A slit was created in the mesh and the mesh was wrapped around the spermatic cord and sutured back to itself. The external oblique was then reapproximated using a running 2-0 Vicryl suture. The subcutaneous tissues were reapproximated using a 3-0 Vicryl sutures. The skin was closed using 4-0 Monocryl sutures. Dermabond was then applied. DISPOSITION: Stable to recovery room
[2018-02-05] MEDS ORDERED: HYDROcodone/APAP 5-325MG 1 EACH TAB PO ONE (17:14)
[2018-02-05 17:16] VITALS: PULSE 58
[2018-02-05 17:35] VITALS: BP 123/81
== END 2018-02-05 17:55 | disposition home or self-care (01) ==
LOC: OR 12:08
PROVIDERS: ATTEND Surgery
DX: K40.90 Unilateral inguinal hernia, without obstruction or gangrene, not specified as recurrent (principal); I25.10 Atherosclerotic heart disease of native coronary artery without angina pectoris; E78.5 Hyperlipidemia, unspecified; I25.2 Old myocardial infarction; F41.9 Anxiety disorder, unspecified; F32.9 Major depressive disorder, single episode, unspecified; Z95.5 Presence of coronary angioplasty implant and graft; Z79.899 Other long term (current) drug therapy; Z79.82 Long term (current) use of aspirin; Z88.5 Allergy status to narcotic agent; Z85.828 Personal history of other malignant neoplasm of skin
CPT/HCPCS: 88302; 49505; C1781; J2250; J1644; J2405; J2001; J3010; J1170; J0330; J2704; J0690

== ENCOUNTER → 2018-03-12 | Outpatient (CLI) | payer OTHER ==
[2018-03-12 16:23] LABS: Albumin 4.3 g/dL (3.80-4.90); Albumin/Globulin Ratio 2.05 (1.20-2.10); Anion Gap 5.8 mmol/L (4.00-12.00); Calcium 9.4 mg/dL (8.7-10.3); Carbon Dioxide 28.2 mmol/L (21.6-31.8); Globulin 2.1 g/dL (2.1-3.7); Potassium 4.4 mmol/L (3.5-5.5); Total Bilirubin 1.5 mg/dL (0.2-1.2); Total Protein 6.4 g/dL (6.2-8.2)
== END | disposition home or self-care (01) ==
LOC: LABWHC1 08:47
PROVIDERS: ATTEND Internal Medicine Interventional Cardiology
DX: E78.2 Mixed hyperlipidemia (principal); I25.5 Ischemic cardiomyopathy
CPT/HCPCS: 36415; 80053; 80061; 83880

== ENCOUNTER → 2018-04-11 | Outpatient (CLI) | payer OTHER ==
--- NOTE | 2018-04-11 09:22 | CT ---
EXAMINATION TYPE: CT sinus wo con DATE OF EXAM: 04/11/2018 COMPARISON: NONE HISTORY: Cyst and mucocele of nose and nasal sinus CT DLP: 618.10 mGycm. Automated Exposure Control for Dose Reduction was Utilized. TECHNIQUE: CT scan of the sinuses is performed without contrast, axial images are obtained, coronal r eformatted images are also reviewed. FINDINGS: There is a probable left maxillary mucosal retention cyst measuring 9 mm seen along the posterior med ial maxillary sinus wall dependently. There is minimal mucosal thickening is seen within the ethmoid sinuses. Frontal sinuses and sphenoid sinuses are well aerated. Mild polypoid mucosal thickening is s een within the right maxillary sinus most pronounced inferiorly with a possible 6 mm pedunculated lashawn yp along the posterior medial wall dependently and possible multiple sessile polyps. Within the left maxillary sinus and the medial wall inferiorly there is a 5 mm possible sessile polyp versus addition al mucosal retention cyst. There is rightward nasal septal deviation and a 2 mm rightward nasal septal spur. There is nasal turb inate mucosal hypertrophy of the left middle and inferior nasal turbinates. No Serafin cells or obstru cting tiny bullosa are seen. Small left tiny bullosa is noted. There is occlusion of the right os tiomeatal complex due to mucosal thickening. Left ostium renal complex is patent. The nasal bone, max illary spine and nasal septum appear intact. Visualized mastoid air cells and middle ear cavities are well aerated. Evaluation of intracranial structures is suboptimal and limited given technique. Orbit s appear symmetric. IMPRESSION: 1. Right ostiomeatal occlusion secondary to mucosal thickening with polypoid mild right and trace lef t maxillary mucosal thickening. There are suspicion for multiple sessile polyps and a right peduncula nika polyp versus less likely numerous mucosal retention cysts. 2. Left middle and inferior nasal turbinate mucosal hypertrophy. The patient stated history of cyst a nd mucocele of the nose may blend with the mucosal thickening and hypertrophy and are not clearly umm surable on CT. 3. Rightward nasal septal deviation and a 2 mm rightward nasal septal spur. 4. Scant ethmoid mucosal thickening.
== END | disposition home or self-care (01) ==
LOC: RADCTMAIN 07:03
PROVIDERS: ATTEND Otolaryngology
DX: J34.3 Hypertrophy of nasal turbinates (principal); J34.2 Deviated nasal septum; J34.89 Other specified disorders of nose and nasal sinuses
CPT/HCPCS: 70486

== ENCOUNTER → 2018-06-26 | Outpatient (CLI) | payer OTHER ==
[2018-06-26 17:38] LABS: Albumin 4.4 g/dL (3.80-4.90); Albumin/Globulin Ratio 2.2 (1.60-3.17); Anion Gap 7.9 mmol/L (4.00-12.00); Calcium 9.4 mg/dL (8.7-10.3); Carbon Dioxide 28.1 mmol/L (21.6-31.8); LDL Cholesterol,Calculated 48.2 mg/dL (0.0-131.0); Total Bilirubin 1.2 mg/dL (0.2-1.2); Total Protein 6.4 g/dL (6.2-8.2); VLDL Calculation 10.8 mg/dL (5.00-40.00)
== END | disposition home or self-care (01) ==
LOC: LABWHC1 08:22
PROVIDERS: ATTEND Internal Medicine Interventional Cardiology
DX: E78.2 Mixed hyperlipidemia (principal)
CPT/HCPCS: 36415; 80053; 80061

== ENCOUNTER → 2018-08-22 | Outpatient (CLI) | payer OTHER ==
[2018-08-22 14:47] LABS: Basophils # (A) 0.1 k/uL (0-0.2); Basophils % (A) 1 %; Eosinophils # (A) 0.1 k/uL (0-0.7); Eosinophils % (A) 2 %; HCT 40.1 % (39.0-53.0); HGB 13.9 gm/dL (13.0-17.5); Lymphocytes # (A) 1.5 k/uL (1.0-4.8); Lymphocytes % (A) 19 %; MCH 30.6 pg (25.0-35.0); MCHC 34.5 g/dL (31.0-37.0); MCV 88.7 fL (80.0-100.0); Mean Platelet Volume 8.9; Monocytes # (A) 0.4 k/uL (0-1.0); Monocytes % (A) 5 %; Neutrophils # (A) 5.7 k/uL (1.3-7.7); Neutrophils % (A) 71 %; Platelet Count 154 k/uL (150-450); RBC 4.52 m/uL (4.30-5.90); RDW 13.1 % (11.5-15.5); WBC 7.9 k/uL (3.8-10.6)
[2018-08-22 19:19] LABS: Albumin 4.3 g/dL (3.80-4.90); Albumin/Globulin Ratio 2.26 (1.60-3.17); Anion Gap 7.1 mmol/L (4.00-12.00); Calcium 9.4 mg/dL (8.7-10.3); Carbon Dioxide 29.9 mmol/L (21.6-31.8); Globulin 1.9 g/dL (1.6-3.3); Potassium 4.2 mmol/L (3.5-5.5); Total Bilirubin 0.9 mg/dL (0.2-1.2); Total Protein 6.2 g/dL (6.2-8.2)
== END | disposition home or self-care (01) ==
LOC: LABWHC1 08:43
PROVIDERS: ATTEND Dermatology
DX: C44.319 Basal cell carcinoma of skin of other parts of face (principal); L57.0 Actinic keratosis; Z85.828 Personal history of other malignant neoplasm of skin
CPT/HCPCS: 36415; 80053; 85025

== ENCOUNTER → 2018-11-14 | Outpatient (CLI) | payer OTHER ==
[2018-11-14 16:06] LABS: ALT 23 U/L (10-49); AST 33 U/L (14-35); African American GFR (CKD) 93.1 (60.0-200.0); Albumin/Globulin Ratio 2.37 (1.60-3.17); Alkaline Phosphatase 64 U/L (41-126); Calcium 9.4 mg/dL (8.7-10.3); Chloride 102 mmol/L (96-109); Cholesterol 178 mg/dL (0-200); Globulin 1.9 g/dL (1.6-3.3); Glucose 95 mg/dL (70-110); Sodium 139 mmol/L (135-145); Total Bilirubin 1.1 mg/dL (0.2-1.2); Total Protein 6.4 g/dL (6.2-8.2); Triglycerides <50.0 mg/dL (0.0-149.0); VLDL Calculation 9.98 mg/dL (5.00-40.00)
== END | disposition home or self-care (01) ==
LOC: LABWHC1 09:44
PROVIDERS: ATTEND Internal Medicine Interventional Cardiology
DX: E78.2 Mixed hyperlipidemia (principal)
CPT/HCPCS: 36415; 80053; 80061

== ENCOUNTER → 2018-11-29 | Outpatient (CLI) | payer OTHER ==
[2018-11-29 15:47] LABS: ALT 26 U/L (10-49); AST 31 U/L (14-35); Cholesterol 136 mg/dL (0-200); Triglycerides <50.0 mg/dL (0.0-149.0); VLDL Calculation 9.98 mg/dL (5.00-40.00)
== END ==
LOC: LABWHC1 08:38
PROVIDERS: ATTEND Nurse Practitioner Adult Health
DX: E78.2 Mixed hyperlipidemia (principal)
CPT/HCPCS: 36415; 80061; 84450; 84460

== ENCOUNTER 2019-01-04 08:48 | Day surgery (SDC) | payer OTHER ==
[2019-01-02 08:53] VITALS: BMI 23.3
[~2019-01-04 08:48] MED LIST changes: -HEPARIN SODIUM,PORCINE 5,000 UNIT/ML 1 ML VIAL SQ ONE; -HYDROmorphone 0.5 MG/0.5 ML SYRINGE IVP PRN; -LIDOCAINE 1% 20 ML VIAL (10MG/ML) FOR IV START INTRADERMA PRN; -ONDANSETRON 4 MG/2 ML VIAL IVP ONE; -ceFAZolin IN SWFI 2 GM/20 ML SYRINGE IVP ONE
[2019-01-04 09:11] VITALS: RESP 16; TEMP 97.3
[2019-01-04] MEDS ORDERED: LIDOCAINE 1% 20 ML VIAL (10MG/ML) FOR IV START INTRADERMA ONE (09:19)
--- NOTE | 2019-01-04 10:25 | P.PCN ---
Date of Procedure: 01/04/19 Procedure(s) Performed: BRIEF HISTORY: Patient is a 63-year-old pleasant white male scheduled for an elective colonoscopy as a part of screening for colorectal neoplasia. PROCEDURE PERFORMED: Colonoscopy with biopsy and snare polypectomy. PREOPERATIVE DIAGNOSIS: Screening for colon cancer.. IV sedation none PROCEDURE: After informed consent was obtained, the patient, was brought into the endoscopy unit. IV sedation was administered by Anesthesia under continuous monitoring. Digital rectal examination was normal. Initially the Olympus CF-160 flexible video colonoscope was then inserted in the rectum, gradually advanced into the cecum without any difficulty. Careful examination was performed as the scope was gradually being withdrawn. Ileocecal valve and the appendiceal orifice were visualized and appeared normal. Prep was excellent. Mucosa of the cecum, ascending colon, transverse colon appeared normal. In the hepatic flexure there was a 5-6 mm sessile polyp removed by snare polypectomy. Rest of the, descending colon, sigmoid colon, and rectum appeared normal. In the mid rectum there was a 3 mm sessile polyp that was removed by cold biopsy. Retroflexion was performed in the rectum and no lesions were seen. The patient tolerated the procedure well. IMPRESSION: 5-6 mm sessile hepatic flexure polyp status post polypectomy 3 mm sessile rectal polyp status post removal by cold biopsy RECOMMENDATIONS: Findings of this examination were discussed with the patient as well as his family. He was advised to follow with the biopsy results and if the biopsy shows an adenoma he can have a repeat colonoscopy in 5 years.
[2019-01-04 10:28] VITALS: BP 124/81; PULSE 60
== END 2019-01-04 10:44 | disposition home or self-care (01) ==
LOC: ORWHC2ENDO 08:48
PROVIDERS: ATTEND Internal Medicine Gastroenterology
DX: Z12.11 Encounter for screening for malignant neoplasm of colon (principal); D12.3 Benign neoplasm of transverse colon; K62.1 Rectal polyp; Z88.5 Allergy status to narcotic agent; Z79.899 Other long term (current) drug therapy
CPT/HCPCS: 45380; 45385; 88305

== ENCOUNTER → 2019-02-01 | Outpatient (CLI) | payer OTHER ==
--- NOTE | 2019-02-01 18:06 | US ---
EXAMINATION TYPE: US carotid duplex BILAT DATE OF EXAM: 02/01/2019 COMPARISON: NONE CLINICAL HISTORY: I25.5 Ischemia. EXAM MEASUREMENTS: RIGHT: Peak Systolic Velocity (PSV) cm/sec ----- Right CCA: 105.1 ----- Right ICA: 78.2 ----- Right ECA: 72.9 ICA/CCA ratio: 0.7 RIGHT: End Diastole cm/sec ----- Right CCA: 30.3 ----- Right ICA: 25.8 ----- Right ECA: 9.2 LEFT: Peak Systolic Velocity (PSV) cm/sec ----- Left CCA: 89.7 ----- Left ICA: 108.2 ----- Left ECA: 95.2 ICA/CCA ratio: 1.2 LEFT: End Diastole cm/sec ----- Left CCA: 24.8 ----- Left ICA: 16.3 ----- Left ECA: 0.0 VERTEBRALS (direction of flow): Right Vertebral: Antegrade Left Vertebral: Antegrade Rhythm: Normal No significant stenosis seen. Shadowing plaque noted left bulb. IMPRESSION: 1. Atherosclerotic plaque with no significant hemodynamic stenosis as visualized. Criteria for Assigning % of Stenosis / Diameter reduction (Estimation based on the indirect measurements of the internal carotid artery velocities (ICA PSV). 1. Normal (no stenosis)=ICA PSV < 125 cm/s: ratio < 2.0: ICA EDV<40 cm/s. 2. Less than 50% stenosis=ICA PSV < 125 cm/s: ratio < 2.0: ICA EDV<40 cm/s. 3. 50 to 69% stenosis=ICA PSV of 125 to 230 cm/s: ration 2.0 ? 4.0: ICA EDV 40-100 cm/s. 4. Greater than 70% stenosis to near occlusion= ICA PSV > 230 cm/s: ratio > 4.0: ICA EDV > 100 cm/s. 5. Near occlusion= ICA PSV velocities may be low or undetectable: variable ratio and ICA EDV. 6. Total occlusion=unable to detect flow.
== END | disposition home or self-care (01) ==
LOC: RADUSWWP 16:09
PROVIDERS: ATTEND Family Medicine
DX: I65.29 Occlusion and stenosis of unspecified carotid artery (principal)
CPT/HCPCS: 93880

== ENCOUNTER → 2019-03-26 | Outpatient (CLI) | payer OTHER ==
[2019-03-26 21:01] LABS: African American GFR (CKD) 93.1 (60.0-200.0); Albumin 4.4 g/dL (3.80-4.90); Albumin/Globulin Ratio 2.1 (1.60-3.17); Anion Gap 8.1 mmol/L (4.00-12.00); Calcium 9.3 mg/dL (8.7-10.3); Carbon Dioxide 27.9 mmol/L (21.6-31.8); Chol/HDL Ratio 2.72; Globulin 2.1 g/dL (1.6-3.3); LDL Cholesterol,Calculated 121.2 mg/dL (0.0-131.0); Non-African American GFR(CKD) 80.3 (60.0-200.0); Potassium 4.7 mmol/L (3.5-5.5); Total Bilirubin 0.7 mg/dL (0.2-1.2); Total Protein 6.5 g/dL (6.2-8.2); VLDL Calculation 14.8 mg/dL (5.00-40.00)
== END | disposition home or self-care (01) ==
LOC: LABWHC1 08:20
PROVIDERS: ATTEND Internal Medicine Interventional Cardiology
DX: E78.2 Mixed hyperlipidemia (principal)
CPT/HCPCS: 36415; 80053; 80061

== ENCOUNTER → 2019-10-04 | Outpatient (CLI) | payer OTHER ==
[2019-10-04 16:18] LABS: African American GFR (CKD) 82.9 (60.0-200.0); Albumin 4.5 g/dL (3.80-4.90); Albumin/Globulin Ratio 2.05 (1.60-3.17); Anion Gap 6.7 mmol/L (4.00-12.00); BUN/Creat Ratio 16.36 Ratio (12.00-20.00); Calcium 9.3 mg/dL (8.7-10.3); Carbon Dioxide 28.3 mmol/L (21.6-31.8); Chol/HDL Ratio 1.92; Globulin 2.2 g/dL (1.6-3.3); Non-African American GFR(CKD) 71.6 (60.0-200.0); Potassium 4.4 mmol/L (3.5-5.5); Total Protein 6.7 g/dL (6.2-8.2)
== END | disposition home or self-care (01) ==
LOC: LABWHC1 07:46
PROVIDERS: ATTEND Internal Medicine Interventional Cardiology
DX: E78.2 Mixed hyperlipidemia (principal)
CPT/HCPCS: 36415; 80053; 80061

== ENCOUNTER → 2020-03-05 | Outpatient (CLI) | payer OTHER ==
[2020-03-05 14:49] LABS: ALT 40 U/L (10-49); AST 36 U/L (14-35); African American GFR (CKD) 92.4 (60.0-200.0); Albumin/Globulin Ratio 1.95 (1.60-3.17); Alkaline Phosphatase 61 U/L (41-126); Calcium 9.5 mg/dL (8.7-10.3); Carbon Dioxide 29.9 mmol/L (21.6-31.8); Chloride 103 mmol/L (96-109); Chol/HDL Ratio 1.76; Cholesterol 123 mg/dL (0-200); Globulin 2.2 g/dL (1.6-3.3); Glucose 104 mg/dL (70-110); Non-African American GFR(CKD) 79.7 (60.0-200.0); Potassium 4.4 mmol/L (3.5-5.5); Sodium 139 mmol/L (135-145); Total Bilirubin 0.9 mg/dL (0.2-1.2); Total Protein 6.5 g/dL (6.2-8.2); Triglycerides <50.0 mg/dL (0.0-149.0)
== END | disposition home or self-care (01) ==
LOC: LABWHC1 08:27
PROVIDERS: ATTEND Internal Medicine Interventional Cardiology
DX: E78.2 Mixed hyperlipidemia (principal)
CPT/HCPCS: 36415; 80053; 80061

== ENCOUNTER → 2020-10-22 | Outpatient (CLI) | payer OTHER ==
[2020-10-22 13:35] LABS: African American GFR (CKD) 91.8 (60.0-200.0); Albumin 4.5 g/dL (3.80-4.90); Albumin/Globulin Ratio 1.96 (1.60-3.17); Anion Gap 6.1 mmol/L (4.00-12.00); Calcium 9.7 mg/dL (8.7-10.3); Carbon Dioxide 29.9 mmol/L (21.6-31.8); Chol/HDL Ratio 2.11; Globulin 2.3 g/dL (1.6-3.3); LDL Cholesterol,Calculated 66.8 mg/dL (0.0-131.0); Non-African American GFR(CKD) 79.2 (60.0-200.0); Potassium 4.4 mmol/L (3.5-5.5); Total Bilirubin 0.9 mg/dL (0.3-1.2); Total Protein 6.8 g/dL (6.2-8.2); VLDL Calculation 11.2 mg/dL (5.00-40.00)
== END | disposition home or self-care (01) ==
LOC: LABWHC1 07:45
PROVIDERS: ATTEND Nurse Practitioner Adult Health
DX: I10 Essential (primary) hypertension (principal); I25.5 Ischemic cardiomyopathy; E78.2 Mixed hyperlipidemia
CPT/HCPCS: 36415; 80053; 80061

== ENCOUNTER → 2021-04-05 | Outpatient (CLI) | payer OTHER ==
[2021-04-05 11:44] LABS: African American GFR (CKD) 93.9 (60.0-200.0); Albumin 4.5 g/dL (3.8-4.9); Albumin/Globulin Ratio 1.95 (1.60-3.17); Anion Gap 9.5 mmol/L (10.00-18.00); BUN/Creat Ratio 22.53 Ratio (12.00-20.00); Blood Urea Nitrogen 22.1 mg/dL (9.0-27.0); Calcium 9.6 mg/dL (8.7-10.3); Carbon Dioxide 27.4 mmol/L (20.0-27.5); Globulin 2.3 g/dL (1.6-3.3); HDL Cholesterol 73.9 mg/dL (40.00-60.00); Potassium 4.3 mmol/L (3.5-5.5); Total Bilirubin 0.5 mg/dL (0.30-1.20); Total Protein 6.8 g/dL (6.2-8.2); Triglycerides 41.8 mg/dL (0.00-149.00)
[2021-04-05 11:57] LABS: Chol/HDL Ratio 1.71 Ratio; LDL Cholesterol,Direct Reflex 47.8 mg/dL (0.00-129.00)
== END | disposition home or self-care (01) ==
LOC: LABWHC1 07:34
PROVIDERS: ATTEND Internal Medicine Interventional Cardiology
DX: E78.2 Mixed hyperlipidemia (principal)
CPT/HCPCS: 36415; 80053; 80061; 83721

== ENCOUNTER → 2021-11-25 | Outpatient (CLI) | payer MEDICARE ==
[2021-11-25 14:43] LABS: African American GFR (CKD) 85.9 (60.0-200.0); Anion Gap 10.8 mmol/L (10.00-18.00); BUN/Creat Ratio 19.62 Ratio (12.00-20.00); Blood Urea Nitrogen 20.6 mg/dL (9.0-27.0); Calcium 9.6 mg/dL (8.7-10.3); Carbon Dioxide 28.2 mmol/L (20.0-27.5); Non-African American GFR(CKD) 74.1 (60.0-200.0); Potassium 3.9 mmol/L (3.5-5.5)
== END | disposition home or self-care (01) ==
LOC: LABWHC1 08:41
PROVIDERS: ATTEND Internal Medicine Interventional Cardiology
DX: I25.5 Ischemic cardiomyopathy (principal)
CPT/HCPCS: 36415; 80048

== ENCOUNTER → 2022-04-11 | Outpatient (CLI) | payer MEDICARE ==
[2022-04-11 10:49] LABS: Chol/HDL Ratio 2.12 Ratio; LDL Cholesterol,Calculated 75.4 mg/dL (0.0-131.0); VLDL Calculation 11.94 mg/dL (5.00-40.00)
== END | disposition home or self-care (01) ==
LOC: LABWHC1 07:28
PROVIDERS: ATTEND Internal Medicine Interventional Cardiology
DX: I10 Essential (primary) hypertension (principal); E78.2 Mixed hyperlipidemia
CPT/HCPCS: 36415; 80061

== ENCOUNTER → 2023-05-02 | Outpatient (CLI) | payer MEDICARE ==
[2023-05-02 15:13] LABS: ALT 21 U/L (10-49); AST 22 U/L (14-35); Albumin 4.5 g/dL (3.8-4.9); Albumin/Globulin Ratio 1.88 Ratio (1.60-3.17); Alkaline Phosphatase 62 U/L (41-126); BUN/Creat Ratio 20.11 Ratio (12.00-20.00); Blood Urea Nitrogen 18.1 mg/dL (9.0-27.0); Calcium 9.6 mg/dL (8.7-10.3); Carbon Dioxide 27.3 mmol/L (21.6-31.8); Chloride 104 mmol/L (96-109); Chol/HDL Ratio 1.86 Ratio; Globulin 2.4 g/dL (1.6-3.3); Glucose 103 mg/dL (70-110); Potassium 4.4 mmol/L (3.5-5.5); Sodium 141 mmol/L (135-145); Total Bilirubin 0.6 mg/dL (0.3-1.2); Total Protein 6.9 g/dL (6.2-8.2); VLDL Calculation 10.92 mg/dL (5.00-40.00)
== END | disposition home or self-care (01) ==
LOC: LABWHC1 07:57
PROVIDERS: ATTEND Internal Medicine Interventional Cardiology
DX: I25.5 Ischemic cardiomyopathy (principal); E78.2 Mixed hyperlipidemia
CPT/HCPCS: 36415; 80053; 80061

== ENCOUNTER → 2024-02-23 | Outpatient (CLI) | payer MEDICARE ==
--- NOTE | 2024-02-25 21:44 | MR ---
EXAMINATION TYPE: MR left ankle without IV contrast DATE OF EXAM: 02/23/2024 COMPARISON: None HISTORY: Left ankle pain and swelling, calcific tendonitis Lt Ankle Standard multiplanar, multisequence MRI departmental protocol Multiplanar, multisequence images of the left ankle were acquired without contrast. Diffusion weighte d imaging was performed. FINDINGS: Moderate/severe mid to distal Achilles tendinopathy with thickening and increased signal ov er a 5 cm length. AP diameter of the tendon measures 8.4 mm. Mild surrounding peritendinitis edema. Mild/moderate diffuse flexor tendon tenosynovitis, greatest involving the flexor hallucis longus. Extensor and peroneal tendons are intact. Anterior and posterior syndesmotic ligaments are intact. Anterior talofibular, posterior talofibular and calcaneofibular ligaments are intact. Deep and superficial deltoid ligaments are intact. Plantar fascia is intact. Sinus tarsi fat is preserved. Soft tissues are within normal limits. Negative for fracture or marrow replacement. Prominent posterosuperior calcaneal osteophyte with asso ciated low-level bone marrow edema and small amount of fluid in the retrocalcaneal bursa. Probable ti ny ganglion in the tibial plafond. No joint effusion. Talar dome is intact. IMPRESSION: 1. Moderate/severe Achilles tendinopathy with peritendinitis, fluid in the retrocalcaneal bursa and l ow-level edema in the posterosuperior calcaneus. 2. Mild/moderate diffuse flexor tendon tenosynovitis. [facility], Workstation: [id number], 02/25/2024 9:42 PM
== END | disposition home or self-care (01) ==
LOC: RADMRIMAIN 15:33
PROVIDERS: ATTEND Family Medicine
DX: M65.272 Calcific tendinitis, left ankle and foot (principal); M65.972 Unspecified synovitis and tenosynovitis, left ankle and foot

== ENCOUNTER → 2024-10-04 | Outpatient (CLI) | payer MEDICARE ==
[2024-10-04 15:24] LABS: ALT 24 U/L (10-49); AST 24 U/L (14-35); Albumin 4.3 g/dL (3.8-4.9); Albumin/Globulin Ratio 1.87 Ratio (1.60-3.17); Alkaline Phosphatase 63 U/L (41-126); BUN/Creat Ratio 18.33 Ratio (12.00-20.00); Calcium 9.5 mg/dL (8.7-10.3); Carbon Dioxide 24.5 mmol/L (21.6-31.8); Chloride 102 mmol/L (96-109); Globulin 2.3 g/dL (1.6-3.3); Glucose 112 mg/dL (70-110); LDL Cholesterol,Calculated 54.8 mg/dL (0.0-131.0); Potassium 4.6 mmol/L (3.5-5.5); Sodium 138 mmol/L (135-145); Total Bilirubin 0.7 mg/dL (0.3-1.2); Total Protein 6.6 g/dL (6.2-8.2); VLDL Calculation 9.04 mg/dL (5.00-40.00)
[2024-10-04 15:32] LABS: NT-Pro-B-Type Natriuretic Pept 197 pg/mL (0-125)
== END | disposition home or self-care (01) ==
LOC: LABWHC1 08:52
PROVIDERS: ATTEND Internal Medicine Interventional Cardiology
DX: I25.5 Ischemic cardiomyopathy (principal); E78.2 Mixed hyperlipidemia
CPT/HCPCS: 36415; 80053; 80061; 83880